=== PATIENT | female | born 1940 | race Caucasian/White ===

== ENCOUNTER 2017-06-16 04:20 | Observation (INO) | payer MEDICARE, OTHER ==
[2017-06-16] MEDS ORDERED: Sodium Chloride 0.9% 5 ML Syringe FLUSH PRN ×2 (04:39→05:59)
[2017-06-16] MEDS ORDERED: Sodium Chloride 0.9% 1,000 ML IV ONE (04:39)
--- NOTE | 2017-06-16 04:44 | EDM.PDOC ---
Addendum entered and electronically signed by Boris Paz PA 06/16/17 06:04 : please use ER note for admission H and P Original Note: ED HPI GENERAL MEDICAL PROBLEM - General Chief Complaint: Neurological Problem Stated Complaint: weakness Time Seen by Provider: 06/16/17 04:35 Source of Information: Reports: Patient, EMS History Limitations: Reports: No Limitations - History of Present Illness INITIAL COMMENTS - FREE TEXT/NARRATIVE: 76 YO WF presents to ER by EMS after reporting lower extremity weakness and inability to stand on her own. Pt reports she was watch TV in bed and when she moved her legs to the side of the bed to get up she was unable to move her legs and lowered herself to the floor. Pt was unable to get up. Pt reports once EMS arrived her symptoms resolved. Pt states she feels fine now. Pt denied any slurred speech, facial droop, confusion, headace or upper extremity weakness or numbness. Pt states she remembers everything about the event. Pt denies any chest pain, shortness of breath, dizziness or diaphoresis. Pt reports she only takes medicine for high blood pressure but states shes had TIAs in the past. Pt states tonights event was different than previous TIAs. Onset: Sudden Duration: Hour(s): (1) Location: Reports: Lower Extremity, Left, Lower Extremity, Right Quality: Reports: Other (weakness) Improves with: Reports: None Worsens with: Reports: Movement Context: Reports: Activity Associated Symptoms: Reports: Weakness. Denies: Confusion, Chest Pain, Cough, cough w sputum, Diaphoresis, Fever/Chills, Headaches, Loss of Appetite, Nausea/ Vomiting, Seizure, Shortness of Breath, Syncope - Related Data Allergies Allergy/AdvReac Type Severity Reaction Status Date / Time Sulfa (Sulfonamide Allergy Hives Verified 06/16/17 05:17 Antibiotics) Home Meds: Home Meds Escitalopram [Lexapro] 10 mg PO DAILY 06/16/17 [History] Levothyroxine Sodium [Synthroid] 25 mcg PO ACBREAKFAST 06/16/17 [History] Nebivolol [Bystolic] 10 mg PO BEDTIME 06/16/17 [History] ED ROS GENERAL - Review of Systems Review Of Systems: See Below Constitutional: Reports: No Symptoms HEENT: Reports: No Symptoms Respiratory: Reports: No Symptoms Cardiovascular: Reports: No Symptoms Endocrine: Reports: No Symptoms GI/Abdominal: Reports: No Symptoms : Reports: No Symptoms Musculoskeletal: Reports: No Symptoms Skin: Reports: No Symptoms Neurological: Reports: No Symptoms Psychiatric: Reports: No Symptoms Hematologic/Lymphatic: Reports: No Symptoms Immunologic: Reports: No Symptoms ED EXAM, NEURO - Physical Exam Exam: See Below Exam Limited By: No Limitations General Appearance: Alert, WD/WN, No Apparent Distress Eye Exam: Bilateral Eye: EOMI, PERRL Throat/Mouth: Normal Inspection, Normal Lips, Normal Teeth, Normal Gums, Normal Oropharynx, Normal Voice, No Airway Compromise Head Exam: Atraumatic, Normocephalic Neck: Normal Inspection, Supple, Non-Tender, Full Range of Motion Respiratory/Chest: No Respiratory Distress, Lungs Clear, Normal Breath Sounds, No Accessory Muscle Use, Chest Non-Tender Cardiovascular: Normal Peripheral Pulses, Regular Rate, Rhythm, No Edema, No Gallop, No JVD, No Murmur, No Rub GI/Abdominal: Normal Bowel Sounds, Soft, Non-Tender, No Organomegaly, No Distention, No Abnormal Bruit, No Mass Neurological: Alert, Normal Mood/Affect, Normal Dorsiflexion, CN II-XII Intact, Normal Plantar Flexion, Normal Gait, Normal Reflexes, No Motor/Sensory Deficits , Oriented x 3 Back Exam: Normal Inspection, Full Range of Motion, NT Extremities: Normal Inspection, Normal Range of Motion, Non-Tender, No Pedal Edema, Normal Capillary Refill Psychiatric: Normal Affect, Normal Mood Skin Exam: Warm, Dry, Intact, Normal Color, No Rash EKG INTERPRETATION EKG Date: 06/16/17 Time: 04:43 Rhythm: NSR Rate (Beats/Min): 70 [place]: Normal P-Wave: Present QRS: Normal ST-T: Normal QT: Normal Comparison: NA - No Prior EKG Course - Orders/Labs/Meds Orders: Active Orders 24 hr Category Date Time Status EKG Documentation Completion [RC] ASDIRECTED Care 06/16/17 04:40 Active Peripheral IV Care [RC] . DIRECTED Care 06/16/17 04:40 Active Chest 1V Frontal [CR] Stat Exams 06/16/17 04:39 Taken Head wo Cont [CT] Stat Exams 06/16/17 04:39 Taken Sodium Chloride 0.9% [Syrex Flush] Med 06/16/17 04:39 Active 5 ml FLUSH Q8HR PRN Peripheral IV Insertion Adult [OM.PC] Routine Oth 06/16/17 04:39 Ordered EKG 12 Lead [EK] Routine Ther 06/16/17 04:39 Ordered Medication Orders Sodium Chloride (Syrex Flush) 5 ml FLUSH Q8HR PRN PRN Reason: Keep Vein Open Labs: Laboratory Tests 06/16/17 06/16/17 06/16/17 Range/Units 04:50 04:50 04:50 WBC 4.9 L (5.0-10.0) 10^3/uL RBC 3.70 L (3.80-5.50) 10^6/uL Hgb 12.2 (12.0-16.0) g/dL Hct 35.9 L (37.0-47.0) % MCV 97.1 H (82.0-92.0) fL MCH 33.1 H (27.0-31.0) pg MCHC 34.0 (32.0-36.0) g/dL RDW 14.5 (11.5-14.5) % Plt Count 264 (150-300) 10^3/uL MPV 7.4 (7.4-10.4) fL Neut % (Auto) 51.8 (50.0-70.0) % Lymph % (Auto) 33.3 (20.0-40.0) % [place] % (Auto) 9.4 H (2.0-8.0) % Eos % (Auto) 5.2 H (1.0-3.0) % Baso % (Auto) 0.3 (0.0-1.0) % Neut # (Auto) 2.5 (2.5-7.0) 10^3/uL Lymph # (Auto) 1.6 (1.0-4.0) 10^3/uL [place] # (Auto) 0.5 (0.1-0.8) 10^3/uL Eos # (Auto) 0.3 (0.1-0.3) 10^3/uL Baso # (Auto) 0.0 (0.0-0.1) 10^3/uL PT 9.6 (8.9-11.4) SEC INR 0.9 (0.9-1.1) APTT 21.5 (20.8-31.2) SEC Sodium 135 L (136-145) mmol/L Potassium 4.3 (3.3-5.3) mmol/L Chloride 99 (98-115) mmol/L Carbon Dioxide 24.4 (21.0-32.0) mmol/L BUN 9 (6-25) mg/dL Creatinine 0.76 (0.51-1.17) mg/dL Est Cr Clr Drug Dosing 56.67 mL/min Estimated GFR (MDRD) > 60 mL/min Glucose 93 (70-110) mg/dL Calcium 8.5 L (8.7-10.3) mg/dL Creatine Kinase 98 (26-276) U/L CK-MB (CK-2) 1.30 (0.00-4.30) ng/mL Troponin I 0.08 H* (0.00-0.070) ng/mL Ethyl Alcohol 268 H* (None detected) mg/dL Meds: Medications Generic Name Dose Route Start Last Admin Trade Name Freq PRN Reason Stop Dose Admin Sodium Chloride 5 ml 06/16/17 04:39 Syrex Flush FLUSH Q8HR PRN Keep Vein Open Discontinued Medications Generic Name Dose Route Start Last Admin Trade Name Freq PRN Reason Stop Dose Admin Sodium Chloride 1,000 mls @ 999 mls/hr 06/16/17 04:39 06/16/17 05:24 Normal Saline IV 06/16/17 05:39 999 mls/hr .BOLUS ONE Administration - Radiology Interpretation Free Text/Narrative:: CXR- NAD CT Head- NAD Departure - Departure Time of Disposition: 05:57 Disposition: Refer to Observation Condition: Fair Clinical Impression: Elevated troponin I level Alcohol intoxication Qualifiers: Complication of substance-induced condition: uncomplicated Qualified Code(s): F10.920 - Alcohol use, unspecified with intoxication, uncomplicated Syncope Qualifiers: Encounter type: initial encounter - Discharge Information Forms: ED Department Discharge - My Orders Last 24 Hours: My Active Orders 06/16/17 04:39 Chest 1V Frontal [CR] Stat Head wo Cont [CT] Stat Sodium Chloride 0.9% [Syrex Flush] 5 ml FLUSH Q8HR PRN Peripheral IV Insertion Adult [OM.PC] Routine EKG 12 Lead [EK] Routine 06/16/17 04:40 EKG Documentation Completion [RC] ASDIRECTED Peripheral IV Care [RC] . DIRECTED - Assessment/Plan Last 24 Hours: My Active Orders 06/16/17 04:39 Chest 1V Frontal [CR] Stat Head wo Cont [CT] Stat Sodium Chloride 0.9% [Syrex Flush] 5 ml FLUSH Q8HR PRN Peripheral IV Insertion Adult [OM.PC] Routine EKG 12 Lead [EK] Routine 06/16/17 04:40 EKG Documentation Completion [RC] ASDIRECTED Peripheral IV Care [RC] . DIRECTED Assessment:: 1. lower extremity weakness- resolved 2. elevated trop I 3. alcohol intoxication 4. possible syncope Plan: 1. admit for observation- Heydi Valero 2. trop I Q6 x 3 3. supportive care 4. nitro/ASA
[2017-06-16 05:45] LABS: CHLORIDE,CL 99 mmol/L (98-115); SODIUM,NA 135 mmol/L (136-145)
[2017-06-16] MEDS ORDERED: Aspirin 81 MG Tab.Chew PO ONE (06:02)
[2017-06-16] MEDS ORDERED: Nitroglycerin 2% Oint 1 GM UD Packet TOP PRN (06:02)
[2017-06-16] MEDS: Sodium Chloride 0.9% 1,000 ML IV SCH ×2 (07:39→15:22)
[2017-06-16] MEDS ORDERED: ALPRAZolam 0.25 MG Tab PO ONE ×2 (12:16→21:59)
[2017-06-17] MEDS: Sodium Chloride 0.9% 1,000 ML IV SCH (00:30)
[2017-06-17 06:55] VITALS: BP 122/71
[2017-06-17 08:21] LABS: CHLORIDE,CL 106 mmol/L (98-115); SODIUM,NA 138 mmol/L (136-145)
[2017-06-17] MEDS ORDERED: Nitroglycerin 0.4 MG Tab.SL SL PRN (08:28)
[2017-06-17] MEDS ORDERED: Atropine 0.1 MG/ML 10 ML Syringe IVPUSH PRN (08:28)
[2017-06-17] MEDS ORDERED: EPINEPHrine 1:10,000 1 MG/10 ML Syringe IVPUSH PRN (08:28)
[2017-06-17] MEDS ORDERED: Lidocaine 2% 100 MG/5 ML Syringe IVPUSH PRN (08:28)
--- NOTE | 2017-06-17 08:56 | PCM.DCSUM1 ---
Discharge Summary - Hospital Course Free Text/Narrative:: Sharon is seen today on observation rounds. She will be discharged to home, her stay was from 06/16/14 - 06/17/14 due to near syncopal event with LE weakness , which is resolved, and acute EtOH intoxication. She states that she had been drinking wine and went to get out of bed and felt like she was about to pass out and her legs were wobbly. She called 911 and came by ambulance. This was a new sensation for her. EKG was WNL, troponin was elevated at 0.08 (0.07 ULN) . She had serial trops which were then 0.07, followed by 0.09, then 0.07 and this AM was 0.07. She has never had chest pain with this or SOB. Her weakness in the LE's has resolved. She was found to have a BELEN of 268. She states she had drank a whole bottle of wine. She was "having a pity libertarian" for herself. Her around a year ago this time and she was feeling sad and anxious. She does see Cristal Jimenez PA-C, who has her on xanax, which she has been on for a long time, as well as some Lexapro but she admits to not taking the Lexapro. She does states that the xanax helps. She has seen a counselor, Lily Andres, from [facility], in the past and wants to get back in touch with her. She admits to drinking daily but does not feel she has a problem with EtOH. She feels ready to go home today. - Discharge Data Discharge Date: 06/17/17 Discharge Disposition: Home, Self-Care 01 Condition: Good - Discharge Diagnosis/Problem(s) (1) Depression with anxiety SNOMED Code(s): 106163899 ICD Code: F41.8 - OTHER SPECIFIED ANXIETY DISORDERS Status: Acute Current Visit: Yes (2) Alcohol intoxication SNOMED Code(s): 82342436 Status: Acute Current Visit: Yes (3) Elevated troponin I level SNOMED Code(s): 188812969 Status: Acute Current Visit: Yes (4) Syncope SNOMED Code(s): 529044140 Status: Acute Current Visit: Yes - Patient Summary/Data Recommended Follow-up Testing/Procedures: Cardiolite stress test as an outpatient. Follow-up with counselor. Follow-up with PCP in 1 week. - Patient Instructions Diet: Regular Diet as Tolerated Activity: Rest and Relax Today Other/Special Instructions: Limit alcohol intake. Alcohol is a mood depressant and can worsen depression and counteract the effects of the antidepressant you are on. - Discharge Plan Home Medications: Home Meds Olmesartan Medoxomil [Benicar] 20 mg PO BID 10/17/14 [History] Calcium Citrate/Vitamin D3 [Citracal + D Maximum Caplet] 400 mg PO BID 06/23/15 [History] Cholecalciferol (Vitamin D3) [Vitamin D3] 2,000 intnl unit PO DAILY 06/23/15 [ History] Melatonin/Pyridoxine HCl (B6) [Melatonin 3 mg Tablet] 6 mg PO BEDTIME 07/17/15 [ History] Vitamin B Complex 1 each PO DAILY 07/17/15 [History] Escitalopram [Lexapro] 10 mg PO DAILY 06/16/17 [History] Levothyroxine Sodium [Synthroid] 25 mcg PO ACBREAKFAST 06/16/17 [History] Nebivolol [Bystolic] 10 mg PO BEDTIME 06/16/17 [History] Forms: ED Department Discharge - General Info Date of Service: 06/17/17 Admission Dx/Problem (Free Text: Elevated troponin, near syncope, EtOH intoxication. - Patient Data Vitals - Most Recent: Last Vital Signs Temp 97.7 F 06/17/17 06:54 Pulse 81 06/17/17 06:54 Resp 20 06/17/17 06:54 BP 122/71 06/17/17 06:54 Pulse Ox 97 06/17/17 07:40 Weight - Most Recent: 160 lb I&O - Last 24 hours: Intake & Output 06/16/17 06/17/17 06/17/17 22:59 06:59 14:59 Intake Total 1326 1150 Balance 1326 1150 Lab Results - Last 24 hrs: Laboratory Results - last 24 hr 06/16/17 06/16/17 06/16/17 Range/Units 10:53 16:58 23:01 WBC (5.0-10.0) 10^3/uL RBC (3.80-5.50) 10^6/uL Hgb (12.0-16.0) g/dL Hct (37.0-47.0) % MCV (82.0-92.0) fL MCH (27.0-31.0) pg MCHC (32.0-36.0) g/dL RDW (11.5-14.5) % Plt Count (150-300) 10^3/uL MPV (7.4-10.4) fL Neut % (Auto) (50.0-70.0) % Lymph % (Auto) (20.0-40.0) % [place] % (Auto) (2.0-8.0) % Eos % (Auto) (1.0-3.0) % Baso % (Auto) (0.0-1.0) % Neut # (Auto) (2.5-7.0) 10^3/uL Lymph # (Auto) (1.0-4.0) 10^3/uL [place] # (Auto) (0.1-0.8) 10^3/uL Eos # (Auto) (0.1-0.3) 10^3/uL Baso # (Auto) (0.0-0.1) 10^3/uL Sodium (136-145) mmol/L Potassium (3.3-5.3) mmol/L Chloride (98-115) mmol/L Carbon Dioxide (21.0-32.0) mmol/L BUN (6-25) mg/dL Creatinine (0.51-1.17) mg/dL Est Cr Clr Drug Dosing mL/min Estimated GFR (MDRD) mL/min Glucose (70-110) mg/dL Calcium (8.7-10.3) mg/dL Troponin I 0.07 0.09 H* 0.07 (0.00-0.070) ng/mL 06/17/17 06/17/17 Range/Units 07:20 07:20 WBC 5.8 (5.0-10.0) 10^3/uL RBC 3.22 L (3.80-5.50) 10^6/uL Hgb 10.2 L (12.0-16.0) g/dL Hct 31.2 L (37.0-47.0) % MCV 96.9 H (82.0-92.0) fL MCH 31.8 H (27.0-31.0) pg MCHC 32.9 (32.0-36.0) g/dL RDW 14.4 (11.5-14.5) % Plt Count 243 (150-300) 10^3/uL MPV 7.3 L (7.4-10.4) fL Neut % (Auto) 54.3 (50.0-70.0) % Lymph % (Auto) 24.7 (20.0-40.0) % [place] % (Auto) 16.4 H (2.0-8.0) % Eos % (Auto) 3.3 H (1.0-3.0) % Baso % (Auto) 1.3 H (0.0-1.0) % Neut # (Auto) 3.1 (2.5-7.0) 10^3/uL Lymph # (Auto) 1.4 (1.0-4.0) 10^3/uL [place] # (Auto) 1.0 H (0.1-0.8) 10^3/uL Eos # (Auto) 0.2 (0.1-0.3) 10^3/uL Baso # (Auto) 0.1 (0.0-0.1) 10^3/uL Sodium 138 (136-145) mmol/L Potassium 4.4 (3.3-5.3) mmol/L Chloride 106 (98-115) mmol/L Carbon Dioxide 26.7 (21.0-32.0) mmol/L BUN 6 (6-25) mg/dL Creatinine 0.72 (0.51-1.17) mg/dL Est Cr Clr Drug Dosing 59.81 mL/min Estimated GFR (MDRD) > 60 mL/min Glucose 97 (70-110) mg/dL Calcium 7.6 L (8.7-10.3) mg/dL Troponin I 0.07 (0.00-0.070) ng/mL Med Orders - Current: Current Medications Aspirin (Ecotrin) 325 mg PO DAILY ALYX Last Admin: 06/17/17 08:10 Dose: 325 mg Atropine Sulfate (Atropine 0.1 Mg/Ml) 0 mg IVPUSH ASDIRECTED PRN PRN Reason: Heart Epinephrine HCl (Epinephrine 1:10,000) 1 mg IVPUSH ASDIRECTED PRN PRN Reason: Heart Sodium Chloride (Normal Saline) 1,000 mls @ 125 mls/hr IV ASDIRECTED ALYX Last Admin: 06/17/17 00:30 Dose: 125 mls/hr Lidocaine HCl (Xylocaine 2%) 0 mg IVPUSH ASDIRECTED PRN PRN Reason: Heart Nitroglycerin (Nitro-Bid 2%) 1 gm TOP Q6H PRN PRN Reason: Chest Pain Nitroglycerin (Nitrostat) 0.4 mg SL ASDIRECTED PRN PRN Reason: Heart Discontinued Medications Alprazolam (Xanax) 0.5 mg PO ONETIME ONE Stop: 06/16/17 12:17 Last Admin: 06/16/17 12:36 Dose: 0.5 mg Alprazolam (Xanax) 0.5 mg PO ONETIME ONE Stop: 06/16/17 22:00 Last Admin: 06/16/17 22:11 Dose: 0.5 mg Aspirin (Aspirin) 324 mg PO ONETIME ONE Stop: 06/16/17 06:03 Last Admin: 06/16/17 07:40 Dose: 324 mg Sodium Chloride (Normal Saline) 1,000 mls @ 999 mls/hr IV .BOLUS ONE Stop: 06/16/17 05:39 Last Admin: 06/16/17 05:24 Dose: 999 mls/hr Sodium Chloride (Syrex Flush) 5 ml FLUSH Q8HR PRN PRN Reason: Keep Vein Open Sodium Chloride (Syrex Flush) 5 ml FLUSH Q8HR PRN PRN Reason: Keep Vein Open - Exam General: Reports: Alert, Oriented, Cooperative, No Acute Distress Lungs: Reports: Clear to Auscultation, Normal Respiratory Effort Cardiovascular: Reports: Regular Rate, Regular Rhythm *Q Meaningful Use (DIS) - VTE *Q VTE Criteria *Q: - Stroke *Q Stroke Criteria *Q: - AMI *Q AMI Criteria *Q:
[2017-06-17] MEDS ORDERED: Aspirin 325 MG Tab.EC PO SCH (09:00)
== END 2017-06-17 10:35 | disposition home or self-care (01) ==
LOC: KA.ED 04:20 → MERGE 05:59 → KA.MS 05:59
PROVIDERS: ADMIT Physician Assistant Medical; ATTEND Internal Medicine
DX: F41.8 Other specified anxiety disorders (principal); F10.129 Alcohol abuse with intoxication, unspecified; R79.89 Other specified abnormal findings of blood chemistry; R55 Syncope and collapse; Z88.2 Allergy status to sulfonamides; Z79.899 Other long term (current) drug therapy; Z88.8 Allergy status to other drugs, medicaments and biological substances; J30.1 Allergic rhinitis due to pollen; Z91.09 Other allergy status, other than to drugs and biological substances
CPT/HCPCS: 36415; 70450; 71010; 80048; 82550; 82553; 84484; 85025; 85610; 85730; 93005; 96360; 96361; 99285; A9270; G0378; G0480; J7030; 99220

== ENCOUNTER 2017-11-10 10:56 | Emergency (ER) | payer MEDICARE, OTHER ==
[2017-11-10 11:23] VITALS: BP 123/70
[2017-11-10] MEDS ORDERED: Acetaminophen 325 MG Tab PO ONE (11:24)
[2017-11-10] MEDS ORDERED: Acetaminophen 325 MG Tab ONE (11:26)
[2017-11-10] MEDS ORDERED: Ciprofloxacin 500 MG Tab PO ONE (11:59)
--- NOTE | 2017-11-10 12:19 | EDM.PDOC ---
ED HPI GENERAL MEDICAL PROBLEM - General Chief Complaint: Genitourinary Problem Stated Complaint: UTI Time Seen by Provider: 11/10/17 11:25 Source of Information: Reports: Patient History Limitations: Reports: No Limitations - History of Present Illness INITIAL COMMENTS - FREE TEXT/NARRATIVE: Patient presents today with complaints of dysuria and hematuria over the last 24 hours. She has noticed some low-grade fever upon taking her temperature in the ER today. She denies any flank or back pain,she has no nausea or vomiting, no abdominal or pelvic pain. She denies a history of recurrent recurrent urinary tract infections. She states that she may have had a UTI many years ago. Onset: Sudden Onset Date: 11/09/17 Duration: Hour(s):, Constant Location: Reports: Pelvis Quality: Reports: Burning Severity: Moderate Improves with: Reports: None Worsens with: Reports: None Associated Symptoms: Denies: Fever/Chills, Nausea/Vomiting - Related Data Allergies Allergy/AdvReac Type Severity Reaction Status Date / Time feathers Allergy Other Verified 11/10/17 11:20 formaldehyde Allergy Other Verified 11/10/17 11:20 gluten Allergy Other Verified 11/10/17 11:20 lactose Allergy Diarrhea Verified 11/10/17 11:20 pollen extracts Allergy Other Verified 11/10/17 11:20 Sulfa (Sulfonamide Allergy Other Verified 11/10/17 11:20 Antibiotics) bleach Allergy Unknown Other Uncoded 06/17/17 10:08 green letuce Allergy Diarrhea Uncoded 11/10/17 11:20 Home Meds: Home Meds Olmesartan Medoxomil [Benicar] 20 mg PO BID 10/17/14 [History] Calcium Citrate/Vitamin D3 [Citracal + D Maximum Caplet] 400 mg PO BID 06/23/15 [History] Cholecalciferol (Vitamin D3) [Vitamin D3] 2,000 intnl unit PO DAILY 06/23/15 [ History] Melatonin/Pyridoxine HCl (B6) [Melatonin 3 mg Tablet] 6 mg PO BEDTIME 07/17/15 [ History] Vitamin B Complex 1 each PO DAILY 07/17/15 [History] Escitalopram [Lexapro] 10 mg PO DAILY 06/16/17 [History] Levothyroxine Sodium [Synthroid] 25 mcg PO ACBREAKFAST 06/16/17 [History] Nebivolol [Bystolic] 10 mg PO BEDTIME 06/16/17 [History] Past Medical History HEENT History: Reports: Impaired Vision Cardiovascular History: Reports: High Cholesterol, Hypertension Gastrointestinal History: Reports: Chronic Diarrhea, GERD Genitourinary History: Reports: Urinary Incontinence EMT I/99 History: Reports: Neurological History: Reports: TIA Other Neuro History: 2014 Psychiatric History: Reports: Anxiety, Depression, Panic Attack Endocrine/Metabolic History: Reports: Hyperthyroidism, Hypothyroidism, Other ( See Below) Other Endocrine/Metabolic History: Pt can not recall if she has hyper or hypo thyroidism; but she takes synthroid Hematologic History: Reports: Blood Transfusion(s) Oncologic (Cancer) History: Reports: Basal Cell Carcinoma Dermatologic History: Reports: Other (See Below) Other Dermatologic History: Basal cell CA - Infectious Disease History Infectious Disease History: Reports: Chicken Pox, Measles, Mumps - Past Surgical History Female Surgical History: Reports: D&C, Hysterectomy, Other (See Below) Other Female Surgeries/Procedures: Bladder surgery, sling. Musculoskeletal Surgical History: Reports: Shoulder Replacement Social & Family History - Tobacco Use Smoking Status *Q: Former Smoker Years of Tobacco use: 20 Packs/Tins Daily: 1 Used Tobacco, but Quit: Yes Month Tobacco Last Used: 1994 Second Hand Smoke Exposure: Yes - Alcohol Use Days Per Week of Alcohol Use: 7 Number of Drinks Per Day: 2 Total Drinks Per Week: 14 - Recreational Drug Use Recreational Drug Use: No - Living Situation & Occupation Living situation: Reports: ED ROS GENERAL - Review of Systems Review Of Systems: ROS reveals no pertinent complaints other than HPI. ED EXAM, RENAL/ - Physical Exam Exam: See Below Exam Limited By: No Limitations General Appearance: Alert, WD/WN, No Apparent Distress Throat/Mouth: Normal Voice, No Airway Compromise Head: Atraumatic Neck: Normal Inspection Respiratory/Chest: No Respiratory Distress GI/Abdominal: Soft Back Exam: Normal Inspection. No: CVA Tenderness (L), CVA Tenderness (R) Extremities: Normal Inspection Neurological: Alert, Oriented, Normal Cognition, Normal Gait Psychiatric: Normal Affect, Normal Mood Skin Exam: Warm, Dry, Intact, Normal Color Course - Vital Signs Last Recorded V/S: Last Vital Signs Temp 99.6 F 11/10/17 11:21 Pulse 91 11/10/17 11:21 Resp 18 11/10/17 11:21 BP 123/70 11/10/17 11:21 Pulse Ox 96 11/10/17 11:21 - Orders/Labs/Meds Orders: Active Orders 24 hr Category Date Time Status CULTURE URINE [RM] Stat Lab 11/10/17 11:00 Received Labs: Laboratory Tests 11/10/17 Range/Units 11:00 Specimen Type Urincc Urine Color Red H (YELLOW) Urine Appearance Turbid H (CLEAR) Urine pH 6.5 (5.0-9.0) Ur Specific [place] 1.020 (1.005-1.030) Urine Protein >=300 H (NEGATIVE) mg/dL Urine Glucose (UA) Negative (NEGATIVE) mg/dL Urine Ketones Trace H (NEGATIVE) mg/dL Urine Occult Blood Large H (NEGATIVE) Urine Nitrite Positive H (NEGATIVE) Urine Bilirubin Moderate H (NEGATIVE) Urine Urobilinogen 1.0 (0.2-1.0) E.U./dL Ur Leukocyte Esterase Large H (NEGATIVE) Urine RBC Packed /HPF Urine WBC 20-30 H /HPF Ur Epithelial Cells Rare /LPF Urine Bacteria Rare (NONE TO FEW) /HPF Meds: Medications Discontinued Medications Generic Name Dose Route Start Last Admin Trade Name Freq PRN Reason Stop Dose Admin Acetaminophen 650 mg 11/10/17 11:24 11/10/17 11:27 Tylenol PO 11/10/17 11:25 650 mg NOW ONE Administration Acetaminophen Confirm 11/10/17 11:26 11/10/17 11:31 Tylenol Administered 11/10/17 11:27 Not Given Dose 650 mg .ROUTE .STK-MED ONE Ciprofloxacin 500 mg 11/10/17 11:59 11/10/17 12:11 Ciprofloxacin Hcl PO 11/10/17 12:00 500 mg ONETIME ONE Administration Departure - Departure Time of Disposition: 12:18 Disposition: Home, Self-Care 01 Condition: Good Clinical Impression: UTI, Urinary tract infectious disease - Discharge Information Instructions: Urinary Tract Infection, Adult Referrals: Heydi Villalba MD [Primary Care Provider] - Forms: ED Department Discharge Additional Instructions: 1. Cipro 500 mg daily for 7 days. Patient was given 500 mg today in the ER and she will fill the prescription for the remaining seven-day course with her pharmacy. 2. Encourage you to drink plenty of water. 3. Urinary urinary analysis was sent for culture we should have the results within 48 hours. Please follow-up with your primary care for these results to make sure that the antibiotic I placed you on is sensitive to your urinary tract infection. 4. Tylenol 650 mg every 6 hours when necessary for pain discomfort or low-grade fevers 5. If symptoms persist recommend follow-up with your primary care next week. - My Orders Last 24 Hours: My Active Orders 11/10/17 11:00 CULTURE URINE [RM] Stat - Assessment/Plan Last 24 Hours: My Active Orders 11/10/17 11:00 CULTURE URINE [RM] Stat Assessment:: 1. Urinary tract infection Plan: 1. Cipro 500 mg daily for 7 days. Patient was given 500 mg today in the ER and she will fill the prescription for the remaining seven-day course with her pharmacy. 2. Encourage you to drink plenty of water. 3. Urinary urinary analysis was sent for culture we should have the results within 48 hours. Please follow-up with your primary care for these results to make sure that the antibiotic I placed you on is sensitive to your urinary tract infection. 4. Tylenol 650 mg every 6 hours when necessary for pain discomfort or low-grade fevers 5. If symptoms persist recommend follow-up with your primary care next week.
== END 2017-11-10 12:15 | disposition home or self-care (01) ==
LOC: KA.ED 10:56
DX: N39.0 Urinary tract infection, site not specified (principal); E78.00 Pure hypercholesterolemia, unspecified; I10 Essential (primary) hypertension; E03.9 Hypothyroidism, unspecified; Z87.891 Personal history of nicotine dependence; Z88.8 Allergy status to other drugs, medicaments and biological substances; Z88.2 Allergy status to sulfonamides; Z79.899 Other long term (current) drug therapy
CPT/HCPCS: 81001; 87086; 87088; 87186; 99283; A9270

== ENCOUNTER 2018-01-19 09:52 | Emergency (ER) | payer MEDICARE, OTHER ==
[2018-01-19 10:01] VITALS: BP 163/82
[2018-01-19] MEDS ORDERED: Sodium Chloride 0.9% 1,000 ML ONE (10:16)
[2018-01-19] MEDS ORDERED: Sodium Chloride 0.9% 1,000 ML IV ONE (10:29)
[2018-01-19] MEDS ORDERED: Ondansetron 4 MG/2 ML SDV ONE (10:32)
[2018-01-19] MEDS ORDERED: Ondansetron 4 MG/2 ML SDV IVPUSH ONE (10:32)
[2018-01-19 11:32] LABS: CHLORIDE,CL 102 mmol/L (98-115); SODIUM,NA 139 mmol/L (136-145)
--- NOTE | 2018-01-19 11:41 | EDM.PDOC ---
ED HPI GENERAL MEDICAL PROBLEM - General Chief Complaint: General Stated Complaint: DEHYDRATED?? Source of Information: Reports: Patient, Family (daughter) History Limitations: Reports: No Limitations - History of Present Illness INITIAL COMMENTS - FREE TEXT/NARRATIVE: 77-year-old female presents to the emergency room accompanied with her daughter this morning with complaints of not feeling well possibly dehydrated with some mild nausea. She was seen in the clinic's past Saturday and was given 2 L of IV fluids. She reports that she felt significantly better Saturday and Saturday. This morning she didn't feel well she denies vomiting or diarrhea. She denies shortness of breath, chest pain, abdominal pain, severe headache. This then brought my attention by her daughter and also the patient also agreed that she has been drinking too much. She drinks anywhere from 4 up to 8 glasses of wine nightly. She has been feeling depressed and anxious. She does take medications for this. She feels her drinking has regressed since the passing of her year and a half ago. She has been through detox and has been set up to go to [facility] in [facility] on 2 separate occasions each time declined to go. She states she feels a little shaky today and was drinking wine last night and had at least 4 glasses. Onset: Today Duration: Hour(s): Location: Reports: Generalized - Related Data Allergies Allergy/AdvReac Type Severity Reaction Status Date / Time feathers Allergy Other Verified 01/19/18 10:01 formaldehyde Allergy Other Verified 01/19/18 10:01 gluten Allergy Other Verified 01/19/18 10:01 lactose Allergy Diarrhea Verified 01/19/18 10:01 pollen extracts Allergy Other Verified 01/19/18 10:01 Sulfa (Sulfonamide Allergy Other Verified 01/19/18 10:01 Antibiotics) bleach Allergy Unknown Other Uncoded 01/19/18 10:01 green letuce Allergy Diarrhea Uncoded 01/19/18 10:01 Home Meds: Home Meds Calcium Citrate/Vitamin D3 [Citracal + D Maximum Caplet] 400 mg PO BID 06/23/15 [History] Cholecalciferol (Vitamin D3) [Vitamin D3] 2,000 intnl unit PO DAILY 06/23/15 [ History] Melatonin/Pyridoxine HCl (B6) [Melatonin 3 mg Tablet] 6 mg PO BEDTIME PRN [History] Vitamin B Complex 1 each PO DAILY 07/17/15 [History] Levothyroxine Sodium [Synthroid] 25 mcg PO ACBREAKFAST 06/16/17 [History] Nebivolol [Bystolic] 10 mg PO BEDTIME 06/16/17 [History] traZODone HCl [Trazodone HCl] 100 mg PO BEDTIME 11/10/17 [History] ALPRAZolam [Alprazolam] 0.25 mg PO TID PRN 01/19/18 [History] Escitalopram [Lexapro] 20 mg PO DAILY 01/19/18 [History] busPIRone [Buspar] 10 mg PO BID 01/19/18 [History] Past Medical History HEENT History: Reports: Impaired Vision Cardiovascular History: Reports: High Cholesterol, Hypertension Gastrointestinal History: Reports: Chronic Diarrhea, GERD Genitourinary History: Reports: Urinary Incontinence 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: Neurological History: Reports: TIA Other Neuro History: 2014 Psychiatric History: Reports: Anxiety, Depression, Panic Attack Endocrine/Metabolic History: Reports: Hyperthyroidism, Hypothyroidism, Other ( See Below) Other Endocrine/Metabolic History: Pt can not recall if she has hyper or hypo thyroidism; but she takes synthroid Hematologic History: Reports: Blood Transfusion(s) Oncologic (Cancer) History: Reports: Basal Cell Carcinoma Dermatologic History: Reports: Other (See Below) Other Dermatologic History: Basal cell CA - Infectious Disease History Infectious Disease History: Reports: Chicken Pox, Measles, Mumps - Past Surgical History Female Surgical History: Reports: D&C, Hysterectomy, Other (See Below) Other Female Surgeries/Procedures: Bladder surgery, sling. Musculoskeletal Surgical History: Reports: Shoulder Replacement Social & Family History - Tobacco Use Smoking Status *Q: Former Smoker Years of Tobacco use: 20 Packs/Tins Daily: 1 Used Tobacco, but Quit: Yes Month/Year Tobacco Last Used: 1994 Second Hand Smoke Exposure: Yes - Caffeine Use Caffeine Use: Reports: Coffee - Alcohol Use Days Per Week of Alcohol Use: 7 Number of Drinks Per Day: 2 Total Drinks Per Week: 14 - Recreational Drug Use Recreational Drug Use: No - Living Situation & Occupation Living situation: Reports: Course - Vital Signs Last Recorded V/S: Last Vital Signs Temp 97.3 F 01/19/18 09:58 Pulse 88 03/18/18 09:58 Resp 16 01/19/18 09:58 BP 163/82 H 01/19/18 09:58 Pulse Ox 96 01/19/18 09:58 - Orders/Labs/Meds Labs: Laboratory Tests 01/19/18 01/19/18 Range/Units 11:00 11:00 WBC 5.1 (5.0-10.0) 10^3/uL RBC 3.62 L (3.80-5.50) 10^6/uL Hgb 12.2 (12.0-16.0) g/dL Hct 36.2 L (37.0-47.0) % MCV 99.8 H (82.0-92.0) fL MCH 33.6 H (27.0-31.0) pg MCHC 33.7 (32.0-36.0) g/dL RDW 14.5 (11.5-14.5) % Plt Count 252 (150-300) 10^3/uL MPV 7.2 L (7.4-10.4) fL Neut % (Auto) 59.5 (50.0-70.0) % Lymph % (Auto) 22.7 (20.0-40.0) % [place] % (Auto) 9.3 H (2.0-8.0) % Eos % (Auto) 5.6 H (1.0-3.0) % Baso % (Auto) 2.9 H (0.0-1.0) % Neut # (Auto) 3.0 (2.5-7.0) 10^3/uL Lymph # (Auto) 1.2 (1.0-4.0) 10^3/uL [place] # (Auto) 0.5 (0.1-0.8) 10^3/uL Eos # (Auto) 0.3 (0.1-0.3) 10^3/uL Baso # (Auto) 0.1 (0.0-0.1) 10^3/uL Sodium 139 (136-145) mmol/L Potassium 4.2 (3.3-5.3) mmol/L Chloride 102 (98-115) mmol/L Carbon Dioxide 28.4 (21.0-32.0) mmol/L BUN 5 L (6-25) mg/dL Creatinine 0.92 (0.51-1.17) mg/dL Est Cr Clr Drug Dosing 46.08 mL/min Estimated GFR (MDRD) 59 mL/min Glucose 95 (70-110) mg/dL Calcium 8.9 (8.7-10.3) mg/dL Ethyl Alcohol < 3 (0-3) mg/dL Meds: Medications Discontinued Medications Generic Name Dose Route Start Last Admin Trade Name Tana PRN Reason Stop Dose Admin Sodium Chloride Confirm 01/19/18 10:16 01/19/18 10:49 Normal Saline Administered 01/19/18 10:17 Not Given Dose 1,000 mls @ as directed .ROUTE .STK-MED ONE Sodium Chloride 1,000 mls @ 999 mls/hr 01/19/18 10:29 01/19/18 10:29 Normal Saline IV 01/19/18 11:29 999 mls/hr .BOLUS ONE Administration Ondansetron HCl Confirm 01/19/18 10:32 01/19/18 10:49 Zofran Administered 01/19/18 10:33 Not Given Dose 4 mg .ROUTE .STK-MED ONE Ondansetron HCl 4 mg 01/19/18 10:32 01/19/18 10:32 Zofran IVPUSH 01/19/18 10:33 4 mg ONETIME ONE Administration Departure - Departure Disposition: Home, Self-Care 01 Clinical Impression: Depression with anxiety, Alcohol abuse counseling and surveillance - Discharge Information Instructions: Alcohol Use Disorder Referrals: Heydi Villalba MD [Primary Care Provider] - Forms: ED Department Discharge Additional Instructions: 1. Long discussion with patient regarding alcohol use. Discussed the with the patient and her daughter regarding further [facility] in [place]. 2. Also discussed great concern her drinking and also taking sleeping pills, benzodiazepines. 3. She will follow-up with her primary care next week 4. Family intervention is planned this next week and and deciding further treatment and care for her alcohol use.
--- NOTE | 2018-01-19 12:16 | EDM.PDOCBH ---
ED HPI GENERAL MEDICAL PROBLEM - General Chief Complaint: General Stated Complaint: DEHYDRATED?? Time Seen by Provider: 01/19/18 10:00 Source of Information: Reports: Patient, Family (daughter) History Limitations: Reports: No Limitations - History of Present Illness Onset: Today, Gradual Duration: Hour(s): Location: Reports: Generalized Associated Symptoms: Reports: Nausea/Vomiting. Denies: Confusion, Chest Pain, Diaphoresis, Fever/Chills, Headaches, Shortness of Breath, Weakness - Related Data Allergies Allergy/AdvReac Type Severity Reaction Status Date / Time feathers Allergy Other Verified 01/19/18 10:01 formaldehyde Allergy Other Verified 01/19/18 10:01 gluten Allergy Other Verified 01/19/18 10:01 lactose Allergy Diarrhea Verified 01/19/18 10:01 pollen extracts Allergy Other Verified 01/19/18 10:01 Sulfa (Sulfonamide Allergy Other Verified 01/19/18 10:01 Antibiotics) bleach Allergy Unknown Other Uncoded 01/19/18 10:01 green letuce Allergy Diarrhea Uncoded 01/19/18 10:01 Home Meds: Home Meds Calcium Citrate/Vitamin D3 [Citracal + D Maximum Caplet] 400 mg PO BID 06/23/15 [History] Cholecalciferol (Vitamin D3) [Vitamin D3] 2,000 intnl unit PO DAILY 06/23/15 [ History] Melatonin/Pyridoxine HCl (B6) [Melatonin 3 mg Tablet] 6 mg PO BEDTIME PRN [History] Vitamin B Complex 1 each PO DAILY 07/17/15 [History] Levothyroxine Sodium [Synthroid] 25 mcg PO ACBREAKFAST 06/16/17 [History] Nebivolol [Bystolic] 10 mg PO BEDTIME 06/16/17 [History] traZODone HCl [Trazodone HCl] 100 mg PO BEDTIME 11/10/17 [History] ALPRAZolam [Alprazolam] 0.25 mg PO TID PRN 01/19/18 [History] Escitalopram [Lexapro] 20 mg PO DAILY 01/19/18 [History] busPIRone [Buspar] 10 mg PO BID 01/19/18 [History] Past Medical History HEENT History: Reports: Impaired Vision Cardiovascular History: Reports: High Cholesterol, Hypertension Gastrointestinal History: Reports: Chronic Diarrhea, GERD Genitourinary History: Reports: Urinary Incontinence [employer]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: Neurological History: Reports: TIA Other Neuro History: 2014 Psychiatric History: Reports: Anxiety, Depression, Panic Attack Endocrine/Metabolic History: Reports: Hyperthyroidism, Hypothyroidism, Other ( See Below) Other Endocrine/Metabolic History: Pt can not recall if she has hyper or hypo thyroidism; but she takes synthroid Hematologic History: Reports: Blood Transfusion(s) Oncologic (Cancer) History: Reports: Basal Cell Carcinoma Dermatologic History: Reports: Other (See Below) Other Dermatologic History: Basal cell CA - Infectious Disease History Infectious Disease History: Reports: Chicken Pox, Measles, Mumps - Past Surgical History Female Surgical History: Reports: D&C, Hysterectomy, Other (See Below) Other Female Surgeries/Procedures: Bladder surgery, sling. Musculoskeletal Surgical History: Reports: Shoulder Replacement Social & Family History - Tobacco Use Smoking Status *Q: Former Smoker Years of Tobacco use: 20 Packs/Tins Daily: 1 Used Tobacco, but Quit: Yes Month/Year Tobacco Last Used: 1994 Second Hand Smoke Exposure: Yes - Caffeine Use Caffeine Use: Reports: Coffee - Alcohol Use Days Per Week of Alcohol Use: 7 Number of Drinks Per Day: 2 Total Drinks Per Week: 14 - Recreational Drug Use Recreational Drug Use: No - Living Situation & Occupation Living situation: Reports: ED ROS GENERAL - Review of Systems Review Of Systems: See Below Constitutional: Denies: Fever, Diaphoresis HEENT: Reports: No Symptoms Respiratory: Reports: No Symptoms Cardiovascular: Denies: Chest Pain Endocrine: Reports: No Symptoms GI/Abdominal: Denies: Abdominal Pain : Reports: No Symptoms Musculoskeletal: Reports: No Symptoms Skin: Reports: No Symptoms Neurological: Denies: Confusion, Headache, Syncope, Trouble Speaking, Difficulty Walking, Weakness, Change in Speech Psychiatric: Reports: Anxiety, Depression, Other (alcohol abuse) Hematologic/Lymphatic: Reports: No Symptoms Immunologic: Reports: No Symptoms ED EXAM, BEHAVIORAL HEALTH - Physical Exam Exam: See Below Exam Limited By: No Limitations General Appearance: Alert, No Apparent Distress Ears: Hearing Grossly Normal Nose: Normal Inspection Throat/Mouth: Normal Inspection, Normal Voice, No Airway Compromise Head: Atraumatic, Normocephalic Respiratory/Chest: No Respiratory Distress, Lungs Clear Cardiovascular: Regular Rate, Rhythm, No Murmur GI/Abdominal: Soft Extremities: Normal Inspection, No Pedal Edema Neurological: Alert, Oriented x 3 Psychiatric: Alert, Normal Affect, Oriented, Depressed Mood. No: Suicidal Thoughts, Paranoid Thoughts, Threatening Behavior Skin Exam: Warm, Dry, Intact, Normal color, No rash. No: Diaphoretic COURSE, BEHAVIORAL HEALTH COMP - Course Vital Signs: Last Vital Signs Temp 97.3 F 01/19/18 09:58 Pulse 88 01/19/18 09:58 Resp 16 01/19/18 09:58 BP 163/82 H 01/19/18 09:58 Pulse Ox 96 01/19/18 09:58 Orders, Labs, Meds: Laboratory Tests 01/19/18 01/19/18 Range/Units 11:00 11:00 WBC 5.1 (5.0-10.0) 10^3/uL RBC 3.62 L (3.80-5.50) 10^6/uL Hgb 12.2 (12.0-16.0) g/dL Hct 36.2 L (37.0-47.0) % MCV 99.8 H (82.0-92.0) fL MCH 33.6 H (27.0-31.0) pg MCHC 33.7 (32.0-36.0) g/dL RDW 14.5 (11.5-14.5) % Plt Count 252 (150-300) 10^3/uL MPV 7.2 L (7.4-10.4) fL Neut % (Auto) 59.5 (50.0-70.0) % Lymph % (Auto) 22.7 (20.0-40.0) % [place] % (Auto) 9.3 H (2.0-8.0) % Eos % (Auto) 5.6 H (1.0-3.0) % Baso % (Auto) 2.9 H (0.0-1.0) % Neut # (Auto) 3.0 (2.5-7.0) 10^3/uL Lymph # (Auto) 1.2 (1.0-4.0) 10^3/uL [place] # (Auto) 0.5 (0.1-0.8) 10^3/uL Eos # (Auto) 0.3 (0.1-0.3) 10^3/uL Baso # (Auto) 0.1 (0.0-0.1) 10^3/uL Sodium 139 (136-145) mmol/L Potassium 4.2 (3.3-5.3) mmol/L Chloride 102 (98-115) mmol/L Carbon Dioxide 28.4 (21.0-32.0) mmol/L BUN 5 L (6-25) mg/dL Creatinine 0.92 (0.51-1.17) mg/dL Est Cr Clr Drug Dosing 46.08 mL/min Estimated GFR (MDRD) 59 mL/min Glucose 95 (70-110) mg/dL Calcium 8.9 (8.7-10.3) mg/dL Ethyl Alcohol < 3 (0-3) mg/dL Medications Discontinued Medications Generic Name Dose Route Start Last Admin Trade Name Tana PRN Reason Stop Dose Admin Sodium Chloride Confirm 01/19/18 10:16 01/19/18 10:49 Normal Saline Administered 01/19/18 10:17 Not Given Dose 1,000 mls @ as directed .ROUTE .STK-MED ONE Sodium Chloride 1,000 mls @ 999 mls/hr 01/19/18 10:29 01/19/18 10:29 Normal Saline IV 01/19/18 11:29 999 mls/hr .BOLUS ONE Administration Ondansetron HCl Confirm 01/19/18 10:32 01/19/18 10:49 Zofran Administered 01/19/18 10:33 Not Given Dose 4 mg .ROUTE .STK-MED ONE Ondansetron HCl 4 mg 01/19/18 10:32 01/19/18 10:32 Zofran IVPUSH 01/19/18 10:33 4 mg ONETIME ONE Administration Re-Assessment/Re-Exam: She was given 1 L normal saline and Zofran. She feels much better. We've had a discussion regarding patient's alcohol use. She admits that she does drink every night as anywhere from 4 up to 8 glasses of wine through out the evening. She does admit that she feels that her drinking is a problem. She has been through detox program and has set up for continuation through [facility] on 2 occasions each time she has been reluctant and decided not to go. She feels she's been more depressed and anxious surpassing her about a year and a half ago. Discharge vs Psych Eval/Treatment:: 01/19/18 12:22 Patient will be discharged home with her daughter. Family intervention planned this week discussion of treatment for her alcoholism. Departure - Departure Time of Disposition: 12:25 Disposition: Home, Self-Care 01 Condition: Fair Clinical Impression: Depression with anxiety, Alcohol abuse counseling and surveillance - Discharge Information Instructions: Alcohol Use Disorder Referrals: Heydi Villalba MD [Primary Care Provider] - Forms: ED Department Discharge Additional Instructions: 1. Long discussion with patient regarding alcohol use. Discussed the with the patient and her daughter regarding further [facility] in [place]. 2. Also discussed great concern her drinking and also taking sleeping pills, benzodiazepines. 3. She will follow-up with her primary care next week 4. Family intervention is planned this next week and and deciding further treatment and care for her alcohol use. - Assessment/Plan Assessment:: Alcohol abuse Depression anxiety Mild dehydration Plan: 1. Long discussion with patient regarding alcohol use. Discussed the with the patient and her daughter regarding further [facility] in [place]. 2. Also discussed great concern her drinking and also taking sleeping pills, benzodiazepines. 3. She will follow-up with her primary care next week 4. Family intervention is planned this next week and and deciding further treatment and care for her alcohol use.
== END 2018-01-19 12:15 | disposition home or self-care (01) ==
LOC: KA.ED 09:52
DX: F41.8 Other specified anxiety disorders (principal); Z71.41 Alcohol abuse counseling and surveillance of alcoholic; Z87.891 Personal history of nicotine dependence; I10 Essential (primary) hypertension; K21.9 Gastro-esophageal reflux disease without esophagitis; E78.00 Pure hypercholesterolemia, unspecified; Z79.899 Other long term (current) drug therapy; Z91.011 Allergy to milk products; Z91.09 Other allergy status, other than to drugs and biological substances; Z88.2 Allergy status to sulfonamides
CPT/HCPCS: 36415; 80048; 85025; 96361; 96374; 99284; G0480; J2405; J7030

== ENCOUNTER 2018-05-11 15:20 | Observation (INO) | payer MEDICARE, OTHER ==
[2018-05-11] MEDS ORDERED: Sodium Chloride 0.9% 5 ML Syringe FLUSH PRN ×2 (15:34→18:14)
[2018-05-11] MEDS ORDERED: Sodium Chloride 0.9% 1,000 ML IV ONE (15:45)
--- NOTE | 2018-05-11 15:52 | EDM.PDOC ---
ED HPI GENERAL MEDICAL PROBLEM - General Chief Complaint: General Stated Complaint: DIZZINESS Time Seen by Provider: 05/11/18 15:30 Source of Information: Reports: Patient History Limitations: Reports: No Limitations - History of Present Illness INITIAL COMMENTS - FREE TEXT/NARRATIVE: 77 YO WF presents to ER complaining of sudden onset of dizziness with standing. Pt reports she sttod up approximately 1 hour ago to go to the restroom and became dizzy. Pt reports she was able to get to the bathroom without falling or passing out. Pt reports whilw sitting or lying down she is asymptomatic. Pt denies any associated headache, chest pain, shortness of breath, nausea/ vomiting or recent illness including diarrhea or dysuria. Pt denies any weakness or parathesias. Pt denies any fever/chills or neck pain. Pt states she has been eating and drinking well and hasn't been exerting herself and has been indoors most of the day. Pt denies any recent change to her medications. Onset: Today Onset Date: 05/11/18 Onset Time: 14:00 Duration: Hour(s): (1) Location: Reports: Generalized Severity: Mild Improves with: Reports: Other (sitting/lying down) Worsens with: Reports: Movement Context: Reports: Activity Associated Symptoms: Reports: No Other Symptoms. Denies: Confusion, Chest Pain , Diaphoresis, Fever/Chills, Headaches, Nausea/Vomiting, Shortness of Breath, Syncope, Weakness - Related Data Allergies Allergy/AdvReac Type Severity Reaction Status Date / Time feathers Allergy Other Verified 05/11/18 15:28 formaldehyde Allergy Other Verified 05/11/18 15:28 gluten Allergy Other Verified 05/11/18 15:28 lactose Allergy Diarrhea Verified 05/11/18 15:28 pollen extracts Allergy Other Verified 05/11/18 15:28 Sulfa (Sulfonamide Allergy Other Verified 05/11/18 15:28 Antibiotics) bleach Allergy Unknown Other Uncoded 01/19/18 10:01 green letuce Allergy Diarrhea Uncoded 01/19/18 10:01 Home Meds: Home Meds Melatonin/Pyridoxine HCl (B6) [Melatonin 3 mg Tablet] 6 mg PO BEDTIME PRN [History] Vitamin B Complex 1 each PO DAILY 07/17/15 [History] Levothyroxine Sodium [Synthroid] 25 mcg PO ACBREAKFAST 06/16/17 [History] Nebivolol [Bystolic] 10 mg PO BEDTIME 06/16/17 [History] traZODone HCl [Trazodone HCl] 100 mg PO BEDTIME 11/10/17 [History] ALPRAZolam [Alprazolam] 0.25 mg PO TID PRN 01/19/18 [History] Escitalopram [Lexapro] 20 mg PO DAILY 01/19/18 [History] busPIRone [Buspar] 10 mg PO BID 01/19/18 [History] Past Medical History HEENT History: Reports: Impaired Vision Cardiovascular History: Reports: High Cholesterol, Hypertension Gastrointestinal History: Reports: Chronic Diarrhea, GERD Genitourinary History: Reports: Urinary Incontinence [employer] History: Reports: Neurological History: Reports: TIA Other Neuro History: 2014 Psychiatric History: Reports: Anxiety, Depression, Panic Attack Endocrine/Metabolic History: Reports: Hyperthyroidism, Hypothyroidism, Other ( See Below) Other Endocrine/Metabolic History: Pt can not recall if she has hyper or hypo thyroidism; but she takes synthroid Hematologic History: Reports: Blood Transfusion(s) Oncologic (Cancer) History: Reports: Basal Cell Carcinoma Dermatologic History: Reports: Other (See Below) Other Dermatologic History: Basal cell CA - Infectious Disease History Infectious Disease History: Reports: Chicken Pox, Measles, Mumps - Past Surgical History Female Surgical History: Reports: D&C, Hysterectomy, Other (See Below) Other Female Surgeries/Procedures: Bladder surgery, sling. Musculoskeletal Surgical History: Reports: Shoulder Replacement Social & Family History - Caffeine Use Caffeine Use: Reports: Coffee - Living Situation & Occupation Living situation: Reports: ED ROS GENERAL - Review of Systems Review Of Systems: See Below Constitutional: Reports: No Symptoms HEENT: Reports: No Symptoms Respiratory: Reports: No Symptoms Cardiovascular: Reports: No Symptoms Endocrine: Reports: No Symptoms GI/Abdominal: Reports: No Symptoms : Reports: No Symptoms Musculoskeletal: Reports: No Symptoms Skin: Reports: No Symptoms Neurological: Reports: Dizziness. Denies: Confusion, Headache, Numbness, Paresthesia, Pre-Existing Deficit, Syncope, Trouble Speaking, Weakness, Change in Speech Psychiatric: Reports: Depression. Denies: Confusion, Hallucinations, Homicidal Ideation, Suicidal Ideation Hematologic/Lymphatic: Reports: No Symptoms Immunologic: Reports: No Symptoms ED EXAM, GENERAL - Physical Exam Exam: See Below Exam Limited By: No Limitations General Appearance: Alert, WD/WN, No Apparent Distress Eye Exam: Bilateral Eye: EOMI, PERRL Ears: Normal External Exam, Normal Canal, Hearing Grossly Normal, Normal TMs Nose: Normal Inspection, Normal Mucosa, No Blood Throat/Mouth: Normal Inspection, Normal Lips, Normal Teeth, Normal Gums, Normal Oropharynx, Normal Voice, No Airway Compromise Head: Atraumatic, Normocephalic Neck: Normal Inspection, Supple, Non-Tender, Full Range of Motion Respiratory/Chest: No Respiratory Distress, Lungs Clear, Normal Breath Sounds, No Accessory Muscle Use, Chest Non-Tender Cardiovascular: Normal Peripheral Pulses, Regular Rate, Rhythm, No Edema, No Gallop, No JVD, No Murmur, No Rub GI/Abdominal: Normal Bowel Sounds, Soft, Non-Tender, No Organomegaly, No Distention, No Abnormal Bruit, No Mass Back Exam: Normal Inspection, Full Range of Motion, NT Extremities: Normal Inspection, Normal Range of Motion, Non-Tender, Normal Capillary Refill, No Pedal Edema Neurological: Alert, Oriented, CN II-XII Intact, Normal Cognition, Normal Gait, Normal Reflexes, No Motor/Sensory Deficits Psychiatric: Normal Affect, Normal Mood Skin Exam: Warm, Dry, Intact, Normal Color, No Rash Lymphatic: No Adenopathy EKG INTERPRETATION EKG Date: 05/11/18 Time: 16:15 Rhythm: NSR Rate (Beats/Min): 75 [place]: Normal P-Wave: Present QRS: Normal ST-T: Normal QT: Normal Comparison: NA - No Prior EKG Course - Vital Signs Last Recorded V/S: Last Vital Signs Temp 37.0 C 05/11/18 15:25 Pulse 91 05/11/18 15:25 Resp 16 05/11/18 15:25 BP 150/82 H 05/11/18 15:25 Pulse Ox 95 05/11/18 15:25 Orthostatic Blood Pressure [ 148/87 Standing] Orthostatic Blood Pressure [ 153/86 Sitting] Orthostatic Blood Pressure [ 159/75 Supine] - Orders/Labs/Meds Orders: Active Orders 24 hr Category Date Time Status EKG Documentation Completion [RC] ASDIRECTED Care 05/11/18 15:52 Active Peripheral IV Care [RC] . DIRECTED Care 05/11/18 15:35 Active Chest 1V Frontal [CR] Stat Exams 05/11/18 15:52 Ordered Head wo Cont [CT] Stat Exams 05/11/18 15:52 Ordered URINALYSIS W/MICROSCOPIC [UA W/MICROSCOPIC] [URIN] Stat Lab 05/11/18 15:41 Ordered Sodium Chloride 0.9% [Syrex Flush] Med 05/11/18 15:34 Active 5 ml FLUSH Q8HR PRN Peripheral IV Insertion Adult [OM.PC] Routine Oth 05/11/18 15:34 Ordered EKG 12 Lead [EK] Routine Ther 05/11/18 15:52 Ordered Medication Orders Sodium Chloride (Syrex Flush) 5 ml FLUSH Q8HR PRN PRN Reason: Keep Vein Open Labs: Laboratory Tests 05/11/18 05/11/18 05/11/18 Range/Units 15:38 15:38 15:38 WBC 6.7 (5.0-10.0) 10^3/uL RBC 4.03 (3.80-5.50) 10^6/uL Hgb 13.0 (12.0-16.0) g/dL Hct 39.6 (37.0-47.0) % MCV 98.1 H (82.0-92.0) fL MCH 32.1 H (27.0-31.0) pg MCHC 32.7 (32.0-36.0) g/dL RDW 13.2 (11.5-14.5) % Plt Count 344 H D (150-300) 10^3/uL MPV 7.7 (7.4-10.4) fL Neut % (Auto) 66.3 (50.0-70.0) % Lymph % (Auto) 18.6 L (20.0-40.0) % [place] % (Auto) 11.1 H (2.0-8.0) % Eos % (Auto) 3.9 H (1.0-3.0) % Baso % (Auto) 0.1 (0.0-1.0) % Neut # (Auto) 4.5 (2.5-7.0) 10^3/uL Lymph # (Auto) 1.2 (1.0-4.0) 10^3/uL [place] # (Auto) 0.7 (0.1-0.8) 10^3/uL Eos # (Auto) 0.3 (0.1-0.3) 10^3/uL Baso # (Auto) 0.0 (0.0-0.1) 10^3/uL Sodium 130 L (136-145) mmol/L Potassium 4.2 (3.3-5.3) mmol/L Chloride 97 L (98-115) mmol/L Carbon Dioxide 25.9 (21.0-32.0) mmol/L Anion Gap 11.3 (5-15) mmol/L BUN 7 (6-25) mg/dL Creatinine 0.93 (0.51-1.17) mg/dL Est Cr Clr Drug Dosing 45.58 mL/min Estimated GFR (MDRD) 58 mL/min Glucose 110 (70-110) mg/dL Calcium 9.1 (8.7-10.3) mg/dL Total Bilirubin 0.3 (0.2-1.0) mg/dL AST 19 (15-37) U/L ALT 35 (12-78) U/L Alkaline Phosphatase 71 (46-116) IU/L Creatine Kinase 42 (26-276) U/L CK-MB (CK-2) 0.50 (0.00-4.30) ng/mL Troponin I 0.02 (0.00-0.070) ng/mL Total Protein 6.9 (6.4-8.2) g/dL Albumin 3.49 (3.00-4.80) g/dL Urine Color (YELLOW) Urine Appearance (CLEAR) Urine pH (5.0-9.0) Ur Specific [place] (1.005-1.030) Urine Protein (NEGATIVE) mg/dL Urine Glucose (UA) (NEGATIVE) mg/dL Urine Ketones (NEGATIVE) mg/dL Urine Occult Blood (NEGATIVE) Urine Nitrite (NEGATIVE) Urine Bilirubin (NEGATIVE) Urine Urobilinogen (0.2-1.0) E.U./dL Ur Leukocyte Esterase (NEGATIVE) Ethyl Alcohol < 3 (0-3) mg/dL 05/11/18 Range/Units 17:05 WBC (5.0-10.0) 10^3/uL RBC (3.80-5.50) 10^6/uL Hgb (12.0-16.0) g/dL Hct (37.0-47.0) % MCV (82.0-92.0) fL MCH (27.0-31.0) pg MCHC (32.0-36.0) g/dL RDW (11.5-14.5) % Plt Count (150-300) 10^3/uL MPV (7.4-10.4) fL Neut % (Auto) (50.0-70.0) % Lymph % (Auto) (20.0-40.0) % [place] % (Auto) (2.0-8.0) % Eos % (Auto) (1.0-3.0) % Baso % (Auto) (0.0-1.0) % Neut # (Auto) (2.5-7.0) 10^3/uL Lymph # (Auto) (1.0-4.0) 10^3/uL [place] # (Auto) (0.1-0.8) 10^3/uL Eos # (Auto) (0.1-0.3) 10^3/uL Baso # (Auto) (0.0-0.1) 10^3/uL Sodium (136-145) mmol/L Potassium (3.3-5.3) mmol/L Chloride (98-115) mmol/L Carbon Dioxide (21.0-32.0) mmol/L Anion Gap (5-15) mmol/L BUN (6-25) mg/dL Creatinine (0.51-1.17) mg/dL Est Cr Clr Drug Dosing mL/min Estimated GFR (MDRD) mL/min Glucose (70-110) mg/dL Calcium (8.7-10.3) mg/dL Total Bilirubin (0.2-1.0) mg/dL AST (15-37) U/L ALT (12-78) U/L Alkaline Phosphatase (46-116) IU/L Creatine Kinase (26-276) U/L CK-MB (CK-2) (0.00-4.30) ng/mL Troponin I (0.00-0.070) ng/mL Total Protein (6.4-8.2) g/dL Albumin (3.00-4.80) g/dL Urine Color Yellow (YELLOW) Urine Appearance Clear (CLEAR) Urine pH 6.0 (5.0-9.0) Ur Specific [place] <= 1.005 (1.005-1.030) Urine Protein Negative (NEGATIVE) mg/dL Urine Glucose (UA) Negative (NEGATIVE) mg/dL Urine Ketones Negative (NEGATIVE) mg/dL Urine Occult Blood Negative (NEGATIVE) Urine Nitrite Negative (NEGATIVE) Urine Bilirubin Negative (NEGATIVE) Urine Urobilinogen 0.2 (0.2-1.0) E.U./dL Ur Leukocyte Esterase Negative (NEGATIVE) Ethyl Alcohol (0-3) mg/dL Meds: Medications Generic Name Dose Route Start Last Admin Trade Name Freq PRN Reason Stop Dose Admin Sodium Chloride 5 ml 05/11/18 15:34 Syrex Flush FLUSH Q8HR PRN Keep Vein Open Discontinued Medications Generic Name Dose Route Start Last Admin Trade Name Freq PRN Reason Stop Dose Admin Sodium Chloride 1,000 mls @ 999 mls/hr 05/11/18 15:45 05/11/18 15:53 Normal Saline IV 05/11/18 16:45 999 mls/hr .BOLUS ONE Administration - Radiology Interpretation Free Text/Narrative:: Orthostatics- negative but symptomatic from lying to sitting CXR- NAD CT Head- NAD Departure - Departure Time of Disposition: 17:21 Disposition: Refer to Observation Condition: Fair Clinical Impression: Dizziness, Hyponatremia - Discharge Information Referrals: Cristal Jimenez PA-C [Primary Care Provider] - Forms: ED Department Discharge - My Orders Last 24 Hours: My Active Orders 05/11/18 15:34 Sodium Chloride 0.9% [Syrex Flush] 5 ml FLUSH Q8HR PRN Peripheral IV Insertion Adult [OM.PC] Routine 05/11/18 15:35 Peripheral IV Care [RC] . DIRECTED 05/11/18 15:41 URINALYSIS W/MICROSCOPIC [UA W/MICROSCOPIC] [URIN] Stat 05/11/18 15:52 EKG Documentation Completion [RC] ASDIRECTED Chest 1V Frontal [CR] Stat Head wo Cont [CT] Stat EKG 12 Lead [EK] Routine - Assessment/Plan Last 24 Hours: My Active Orders 05/11/18 15:34 Sodium Chloride 0.9% [Syrex Flush] 5 ml FLUSH Q8HR PRN Peripheral IV Insertion Adult [OM.PC] Routine 05/11/18 15:35 Peripheral IV Care [RC] . DIRECTED 05/11/18 15:41 URINALYSIS W/MICROSCOPIC [UA W/MICROSCOPIC] [URIN] Stat 05/11/18 15:52 EKG Documentation Completion [RC] ASDIRECTED Chest 1V Frontal [CR] Stat Head wo Cont [CT] Stat EKG 12 Lead [EK] Routine Assessment:: 1. Dizziness 2. Hyponatremia Plan: 1. Admit for [address] Alfred- Dizziness-unresolved and hyponatremia 2. NS @100cc/hr 3. supportive care 4. repeat labs in am
[2018-05-11 16:38] LABS: ANION GAP 11.3 mmol/L (5-15)
[2018-05-11] MEDS ORDERED: PYRIDOXINE HCL PO PRN (17:29)
[2018-05-11] MEDS ORDERED: MELATONIN PO PRN (17:29)
[2018-05-11] MEDS ORDERED: [UNRECOGNIZED DRUG - OTHER] PO PRN (17:29)
[2018-05-11] MEDS ORDERED: busPIRone 5 MG Tab ONE (19:53)
[2018-05-11] MEDS ORDERED: traZODone 50 MG Tab ONE (19:54)
[2018-05-11] MEDS: busPIRone 5 MG Tab PO SCH (20:15)
[2018-05-11] MEDS: Sodium Chloride 0.9% 1,000 ML IV SCH (20:15)
[2018-05-11] MEDS ORDERED: Non-Formulary Medication 1 Each (Trazodone Hcl 100 MG) PO SCH (21:00)
[2018-05-11] MEDS ORDERED: traZODone 50 MG Tab PO SCH (21:00)
[2018-05-11] MEDS ORDERED: BUSPIRONE 10 MG PO SCH (21:00)
[2018-05-11] MEDS: ALPRAZolam 0.25 MG Tab PO PRN (22:08)
[2018-05-11] MEDS ORDERED: Vitamin B6-pyridOXINE 50 MG Tab PO PRN (23:20)
[2018-05-11] MEDS ORDERED: Melatonin 3 MG Tab PO PRN (23:24)
[2018-05-12] MEDS: Sodium Chloride 0.9% 1,000 ML IV SCH (06:11)
[2018-05-12] MEDS ORDERED: Levothyroxine 25 MCG Tab PO SCH (07:30)
[2018-05-12 07:59] LABS: CHLORIDE,CL 107 mmol/L (98-115); SODIUM,NA 142 mmol/L (136-145)
[2018-05-12] MEDS: busPIRone 5 MG Tab PO SCH (08:46)
[2018-05-12] MEDS ORDERED: Escitalopram 10 MG Tab PO SCH (09:00)
[2018-05-12] MEDS ORDERED: Vitamin B Complex Tab PO SCH (09:00)
[2018-05-12] MEDS ORDERED: Non-Formulary Medication 1 Each (Escitalopram [Lexapro] 20 MG) PO SCH (09:00)
--- NOTE | 2018-05-12 15:49 | PCM.DCSUM1 ---
Discharge Summary - Hospital Course Free Text/Narrative:: Sharon is being discharged from an observation stay from 05/11/19 - 05/12/18 for dizziness with feeling unsafe at home due to dizziness. She resides at assisted living. EKG, head CT UA, EtOH and orthostatic's all negative. Sodium was 130 and chloride 97 at admission, at discharge after IVF's of NS she was 142 chloride was 107. She has been up and around throughout the day and the dizziness has resolved. She had no symptoms of vertigo. No medication changes. She will return to assisted with home services. This serves as the face to face encounter for home health services to include nursing and PT. She requires these services to develop an in home therapy program, to have an in home safety assessment and to develop a strength and endurance program. She has decreased strength due to fatigue and muscle weakness as well as having an unsteady gait. Will also refer for meals on wheels. Modified Mcdonald Scale: No Symptoms at All Modified Jennifer Scale Score: 0 - Discharge Data Discharge Date: 05/12/18 Discharge Disposition: Home, Self-Care 01 Condition: Good - Discharge Diagnosis/Problem(s) (1) Dizziness SNOMED Code(s): 101525333, 790196177 ICD Code: R42 - DIZZINESS AND GIDDINESS Status: Acute Current Visit: Yes (2) Hyponatremia SNOMED Code(s): 00684086 ICD Code: E87.1 - HYPO-OSMOLALITY AND HYPONATREMIA Status: Acute Current Visit: Yes (3) Depression with anxiety SNOMED Code(s): 091386734 ICD Code: F41.8 - OTHER SPECIFIED ANXIETY DISORDERS Status: Chronic Current Visit: No - Patient Instructions Diet: Regular Diet as Tolerated Activity: As Tolerated - Discharge Plan Home Medications: Home Meds Melatonin/Pyridoxine HCl (B6) [Melatonin 3 mg Tablet] 6 mg PO BEDTIME PRN [History] Vitamin B Complex 1 each PO DAILY 07/17/15 [History] Levothyroxine Sodium [Synthroid] 25 mcg PO ACBREAKFAST 06/16/17 [History] Nebivolol [Bystolic] 10 mg PO BEDTIME 06/16/17 [History] traZODone HCl [Trazodone HCl] 100 mg PO BEDTIME 11/10/17 [History] ALPRAZolam [Alprazolam] 0.25 mg PO TID PRN 01/19/18 [History] Escitalopram [Lexapro] 20 mg PO DAILY 01/19/18 [History] busPIRone [Buspar] 10 mg PO BID 01/19/18 [History] Referrals: Cristal Jimenez PA-C [Primary Care Provider] - - Discharge Summary/Plan Comment DC Time >30 min.: No - General Info Date of Service: 05/12/18 - Review of Systems Systems Review Comment: 10 point ROS obtained, all pertinent positives listed in the HPI, all other systems are negative. - Patient Data Vitals - Most Recent: Last Vital Signs Temp 98.4 F 05/12/18 15:00 Pulse 60 05/12/18 15:00 Resp 18 05/12/18 15:00 BP 127/66 05/12/18 15:00 Pulse Ox 94 L 05/12/18 15:00 Orthostatic Blood Pressure [ 148/87 Standing] Orthostatic Blood Pressure [ 153/86 Sitting] Orthostatic Blood Pressure [ 159/75 Supine] Weight - Most Recent: 168 lb I&O - Last 24 hours: Intake & Output 05/12/18 05/12/18 05/12/18 06:59 14:59 22:59 Intake Total 922 1312 Output Total 1250 600 Balance -328 712 Lab Results - Last 24 hrs: Laboratory Results - last 24 hr 05/11/18 05/11/18 05/11/18 Range/Units 15:38 15:38 15:38 WBC 6.7 (5.0-10.0) 10^3/uL RBC 4.03 (3.80-5.50) 10^6/uL Hgb 13.0 (12.0-16.0) g/dL Hct 39.6 (37.0-47.0) % MCV 98.1 H (82.0-92.0) fL MCH 32.1 H (27.0-31.0) pg MCHC 32.7 (32.0-36.0) g/dL RDW 13.2 (11.5-14.5) % Plt Count 344 H D (150-300) 10^3/uL MPV 7.7 (7.4-10.4) fL Neut % (Auto) 66.3 (50.0-70.0) % Lymph % (Auto) 18.6 L (20.0-40.0) % [place] % (Auto) 11.1 H (2.0-8.0) % Eos % (Auto) 3.9 H (1.0-3.0) % Baso % (Auto) 0.1 (0.0-1.0) % Neut # (Auto) 4.5 (2.5-7.0) 10^3/uL Lymph # (Auto) 1.2 (1.0-4.0) 10^3/uL [place] # (Auto) 0.7 (0.1-0.8) 10^3/uL Eos # (Auto) 0.3 (0.1-0.3) 10^3/uL Baso # (Auto) 0.0 (0.0-0.1) 10^3/uL Sodium 130 L (136-145) mmol/L Potassium 4.2 (3.3-5.3) mmol/L Chloride 97 L (98-115) mmol/L Carbon Dioxide 25.9 (21.0-32.0) mmol/L Anion Gap 11.3 (5-15) mmol/L BUN 7 (6-25) mg/dL Creatinine 0.93 (0.51-1.17) mg/dL Est Cr Clr Drug Dosing 45.58 mL/min Estimated GFR (MDRD) 58 mL/min Glucose 110 (70-110) mg/dL Calcium 9.1 (8.7-10.3) mg/dL Total Bilirubin 0.3 (0.2-1.0) mg/dL AST 19 (15-37) U/L ALT 35 (12-78) U/L Alkaline Phosphatase 71 (46-116) IU/L Creatine Kinase 42 (26-276) U/L CK-MB (CK-2) 0.50 (0.00-4.30) ng/mL Troponin I 0.02 (0.00-0.070) ng/mL Total Protein 6.9 (6.4-8.2) g/dL Albumin 3.49 (3.00-4.80) g/dL Specimen Type Urine Color (YELLOW) Urine Appearance (CLEAR) Urine pH (5.0-9.0) Ur Specific [place] (1.005-1.030) Urine Protein (NEGATIVE) mg/dL Urine Glucose (UA) (NEGATIVE) mg/dL Urine Ketones (NEGATIVE) mg/dL Urine Occult Blood (NEGATIVE) Urine Nitrite (NEGATIVE) Urine Bilirubin (NEGATIVE) Urine Urobilinogen (0.2-1.0) E.U./dL Ur Leukocyte Esterase (NEGATIVE) Urine RBC /HPF Urine WBC /HPF Ur Epithelial Cells /LPF Urine Bacteria (NONE TO FEW) /HPF Urine Mucus (NEGATIVE) /LPF Ethyl Alcohol < 3 (0-3) mg/dL 05/11/18 05/12/18 05/12/18 Range/Units 17:05 07:30 07:30 WBC 5.4 (5.0-10.0) 10^3/uL RBC 3.65 L (3.80-5.50) 10^6/uL Hgb 11.6 L (12.0-16.0) g/dL Hct 35.5 L (37.0-47.0) % MCV 97.4 H (82.0-92.0) fL MCH 31.8 H (27.0-31.0) pg MCHC 32.6 (32.0-36.0) g/dL RDW 12.9 (11.5-14.5) % Plt Count 297 (150-300) 10^3/uL MPV 7.5 (7.4-10.4) fL Neut % (Auto) 59.7 (50.0-70.0) % Lymph % (Auto) 21.3 (20.0-40.0) % [place] % (Auto) 11.7 H (2.0-8.0) % Eos % (Auto) 5.5 H (1.0-3.0) % Baso % (Auto) 1.8 H (0.0-1.0) % Neut # (Auto) 3.2 (2.5-7.0) 10^3/uL Lymph # (Auto) 1.2 (1.0-4.0) 10^3/uL [place] # (Auto) 0.6 (0.1-0.8) 10^3/uL Eos # (Auto) 0.3 (0.1-0.3) 10^3/uL Baso # (Auto) 0.1 (0.0-0.1) 10^3/uL Sodium 142 D (136-145) mmol/L Potassium 4.5 (3.3-5.3) mmol/L Chloride 107 (98-115) mmol/L Carbon Dioxide 27.5 (21.0-32.0) mmol/L Anion Gap 12.0 (5-15) mmol/L BUN 4 L (6-25) mg/dL Creatinine 0.79 (0.51-1.17) mg/dL Est Cr Clr Drug Dosing 53.66 mL/min Estimated GFR (MDRD) > 60 mL/min Glucose 94 (70-110) mg/dL Calcium 8.6 L (8.7-10.3) mg/dL Total Bilirubin (0.2-1.0) mg/dL AST (15-37) U/L ALT (12-78) U/L Alkaline Phosphatase (46-116) IU/L Creatine Kinase (26-276) U/L CK-MB (CK-2) (0.00-4.30) ng/mL Troponin I (0.00-0.070) ng/mL Total Protein (6.4-8.2) g/dL Albumin (3.00-4.80) g/dL Specimen Type Urinvoid Urine Color Yellow (YELLOW) Urine Appearance Clear (CLEAR) Urine pH 6.0 (5.0-9.0) Ur Specific [place] <= 1.005 (1.005-1.030) Urine Protein Negative (NEGATIVE) mg/dL Urine Glucose (UA) Negative (NEGATIVE) mg/dL Urine Ketones Negative (NEGATIVE) mg/dL Urine Occult Blood Negative (NEGATIVE) Urine Nitrite Negative (NEGATIVE) Urine Bilirubin Negative (NEGATIVE) Urine Urobilinogen 0.2 (0.2-1.0) E.U./dL Ur Leukocyte Esterase Negative (NEGATIVE) Urine RBC Not seen /HPF Urine WBC 0-5 /HPF Ur Epithelial Cells Rare /LPF Urine Bacteria Rare (NONE TO FEW) /HPF Urine Mucus Few H (NEGATIVE) /LPF Ethyl Alcohol (0-3) mg/dL Med Orders - Current: Current Medications Alprazolam (Xanax) 0.25 mg PO TID PRN PRN Reason: Anxiety Last Admin: 05/11/18 22:08 Dose: 0.25 mg Buspirone HCl (Buspar) 10 mg PO BID [facility] Last Admin: 05/12/18 08:46 Dose: 10 mg Escitalopram Oxalate (Lexapro) 20 mg PO DAILY [facility] Last Admin: 05/12/18 08:46 Dose: 20 mg Sodium Chloride (Normal Saline) 1,000 mls @ 100 mls/hr IV ASDIRECTED [facility] Last Admin: 05/12/18 06:11 Dose: 100 mls/hr Levothyroxine Sodium (Levothyroxine) 25 mcg PO ACBREAKFAST [facility] Last Admin: 05/12/18 06:31 Dose: 25 mcg Melatonin (Melatonin) 6 mg PO BEDTIME PRN PRN Reason: Insomnia Nebivolol (Bystolic) 10 mg PO BEDTIME [facility] Last Admin: 05/11/18 20:14 Dose: 10 mg Pyridoxine HCl (Vitamin B6-Pyridoxine) 100 mg PO DAILY PRN PRN Reason: Insomnia Sodium Chloride (Syrex Flush) 5 ml FLUSH Q8HR PRN PRN Reason: Keep Vein Open Trazodone HCl (Trazodone) 100 mg PO 2100 [facility] Last Admin: 05/11/18 20:15 Dose: 100 mg Vitamin B Complex (Vitamin B Complex) 1 each PO DAILY [facility] Last Admin: 05/12/18 08:47 Dose: 1 each Discontinued Medications Buspirone HCl (Buspar) Confirm Administered Dose 10 mg .ROUTE .STK-MED ONE Stop: 05/11/18 19:54 Last Admin: 05/11/18 20:14 Dose: Not Given Sodium Chloride (Normal Saline) 1,000 mls @ 999 mls/hr IV .BOLUS ONE Stop: 05/11/18 16:45 Last Admin: 05/11/18 15:53 Dose: 999 mls/hr Non-Formulary Medication (Buspirone) 10 mg PO BID [facility] Non-Formulary Medication (Escitalopram [Lexapro]) 20 mg PO DAILY [facility] Non-Formulary Medication (Melatonin/Pyridoxine Hcl (B6) [Melatonin 3 Mg Tablet] ) 6 mg PO BEDTIME PRN PRN Reason: Insomnia Non-Formulary Medication (Trazodone Hcl) 100 mg PO BEDTIME [facility] Sodium Chloride (Syrex Flush) 5 ml FLUSH Q8HR PRN PRN Reason: Keep Vein Open Trazodone HCl (Trazodone) Confirm Administered Dose 100 mg .ROUTE .STK-MED ONE Stop: 05/11/18 19:55 Last Admin: 05/11/18 20:14 Dose: Not Given - Exam General: Reports: Alert, Oriented, Cooperative, No Acute Distress Lungs: Reports: Clear to Auscultation, Normal Respiratory Effort Cardiovascular: Reports: Regular Rate, Regular Rhythm
[2018-05-12] MEDS: ALPRAZolam 0.25 MG Tab PO PRN (18:06)
[2018-05-12 19:19] VITALS: BP 118/65
== END 2018-05-12 19:45 | disposition home or self-care (01) ==
LOC: KA.ED 15:20 → KA.MS 17:25
PROVIDERS: ADMIT Physician Assistant Medical; ATTEND Internal Medicine
DX: R42 Dizziness and giddiness (principal); E87.1 Hypo-osmolality and hyponatremia; F41.8 Other specified anxiety disorders; E78.00 Pure hypercholesterolemia, unspecified; I10 Essential (primary) hypertension; K21.9 Gastro-esophageal reflux disease without esophagitis; R19.7 Diarrhea, unspecified; E03.9 Hypothyroidism, unspecified; F41.9 Anxiety disorder, unspecified; F32.9 Major depressive disorder, single episode, unspecified; F41.0 Panic disorder [episodic paroxysmal anxiety]; Z79.899 Other long term (current) drug therapy; Z88.2 Allergy status to sulfonamides; Z91.011 Allergy to milk products; Z91.018 Allergy to other foods; Z91.048 Other nonmedicinal substance allergy status
CPT/HCPCS: 36415; 70450; 71045; 80048; 80053; 81001; 82550; 82553; 84484; 85025; 93005; 96360; 96361; 99217; 99220; 99285; A9270-GY; G0378; G0480; J7030

== ENCOUNTER 2018-06-15 08:52 | Emergency (ER) | payer MEDICARE, OTHER ==
[2018-06-15 09:09] VITALS: BP 137/70
--- NOTE | 2018-06-15 09:30 | EDM.PDOC ---
ED HPI GENERAL MEDICAL PROBLEM - General Chief Complaint: General Stated Complaint: ? BLADDER INFECTION Time Seen by Provider: 06/15/18 09:18 Source of Information: Reports: Patient History Limitations: Reports: No Limitations - History of Present Illness INITIAL COMMENTS - FREE TEXT/NARRATIVE: Patient is a 77-year-old female who presents to the emergency department this morning with a complaint of dysuria and lower abdominal pressure. Patient states that she noticed symptoms first thing this morning. She does have a history of UTIs in the past. Patient denies flank pain, fever, nausea, vomiting , diarrhea, or vaginal bleeding. Onset: Today Onset Date: 06/15/18 Duration: Hour(s): Location: Reports: Abdomen Quality: Reports: Pressure Severity: Mild Improves with: Reports: Other (Urination) Worsens with: Reports: None Associated Symptoms: Reports: No Other Symptoms - Related Data Allergies Allergy/AdvReac Type Severity Reaction Status Date / Time feathers Allergy Other Verified 06/15/18 09:10 formaldehyde Allergy Other Verified 06/15/18 09:10 gluten Allergy Other Verified 06/15/18 09:10 lactose Allergy Diarrhea Verified 06/15/18 09:10 pollen extracts Allergy Other Verified 06/15/18 09:10 Sulfa (Sulfonamide Allergy Other Verified 06/15/18 09:10 Antibiotics) bleach Allergy Unknown Other Uncoded 01/19/18 10:01 green letuce Allergy Diarrhea Uncoded 01/19/18 10:01 Home Meds: Home Meds Melatonin/Pyridoxine HCl (B6) [Melatonin 3 mg Tablet] 6 mg PO BEDTIME PRN [History] Vitamin B Complex 1 each PO DAILY 07/17/15 [History] Levothyroxine Sodium [Synthroid] 25 mcg PO ACBREAKFAST 06/16/17 [History] Nebivolol [Bystolic] 10 mg PO BEDTIME 06/16/17 [History] traZODone HCl [Trazodone HCl] 100 mg PO BEDTIME 11/10/17 [History] ALPRAZolam [Alprazolam] 0.25 mg PO TID PRN 01/19/18 [History] Escitalopram [Lexapro] 20 mg PO DAILY 01/19/18 [History] busPIRone [Buspar] 10 mg PO BID 01/19/18 [History] ARIPiprazole [Aripiprazole] 10 mg PO DAILY 06/15/18 [History] Cephalexin [Keflex] 500 mg PO TID #15 capsule 06/15/18 [Rx] Sodium Chloride 1 gm PO DAILY 06/15/18 [History] Past Medical History HEENT History: Reports: Impaired Vision Cardiovascular History: Reports: High Cholesterol, Hypertension Gastrointestinal History: Reports: Chronic Diarrhea, GERD Genitourinary History: Reports: Urinary Incontinence [employer] History: Reports: Neurological History: Reports: TIA Other Neuro History: 2014 Psychiatric History: Reports: Anxiety, Depression, Panic Attack Endocrine/Metabolic History: Reports: Hyperthyroidism, Hypothyroidism, Other ( See Below) Other Endocrine/Metabolic History: Pt can not recall if she has hyper or hypo thyroidism; but she takes synthroid Hematologic History: Reports: Blood Transfusion(s) Oncologic (Cancer) History: Reports: Basal Cell Carcinoma Dermatologic History: Reports: Other (See Below) Other Dermatologic History: Basal cell CA - Infectious Disease History Infectious Disease History: Reports: Chicken Pox, Measles, Mumps - Past Surgical History Head Surgeries/Procedures: Reports: None Female Surgical History: Reports: D&C, Hysterectomy, Other (See Below) Other Female Surgeries/Procedures: Bladder surgery, sling. Musculoskeletal Surgical History: Reports: Shoulder Replacement Social & Family History - Family History Family Medical History: Noncontributory - Tobacco Use Smoking Status *Q: Former Smoker Used Tobacco, but Quit: Yes Month/Year Tobacco Last Used: 1997 Second Hand Smoke Exposure: No - Caffeine Use Caffeine Use: Reports: Coffee, Soda, Tea - Recreational Drug Use Recreational Drug Use: No - Living Situation & Occupation Living situation: Reports: ED ROS GENERAL - Review of Systems Review Of Systems: ROS reveals no pertinent complaints other than HPI. Constitutional: Reports: No Symptoms HEENT: Reports: No Symptoms Respiratory: Reports: No Symptoms Cardiovascular: Reports: No Symptoms Endocrine: Reports: No Symptoms GI/Abdominal: Reports: Abdominal Pain (Lower abdominal fullness) : Reports: Dysuria Musculoskeletal: Reports: No Symptoms Skin: Reports: No Symptoms Neurological: Reports: No Symptoms Psychiatric: Reports: No Symptoms Hematologic/Lymphatic: Reports: No Symptoms Immunologic: Reports: No Symptoms ED EXAM, GENERAL - Physical Exam Exam: See Below Exam Limited By: No Limitations General Appearance: Alert, WD/WN, No Apparent Distress Throat/Mouth: Normal Inspection, Normal Oropharynx, No Airway Compromise Respiratory/Chest: No Respiratory Distress, Lungs Clear, Normal Breath Sounds, No Accessory Muscle Use, Chest Non-Tender Cardiovascular: Normal Peripheral Pulses, Regular Rate, Rhythm GI/Abdominal: Normal Bowel Sounds, Soft, Non-Tender, No Organomegaly, No Distention, No Abnormal Bruit, No Mass Back Exam: Normal Inspection. No: CVA Tenderness (L), CVA Tenderness (R) Extremities: Normal Inspection, No Pedal Edema Neurological: Alert, Oriented, Normal Cognition Psychiatric: Normal Affect, Normal Mood Skin Exam: Warm, Dry, Intact, Normal Color, No Rash Lymphatic: No Adenopathy Course - Vital Signs Last Recorded V/S: Last Vital Signs Temp 98.7 F 06/15/18 09:05 Pulse 80 06/15/18 09:05 Resp 18 06/15/18 09:05 BP 137/70 06/15/18 09:05 Pulse Ox 96 06/15/18 09:05 - Orders/Labs/Meds Orders: Active Orders 24 hr Category Date Time Status CULTURE URINE [RM] Stat Lab 06/15/18 09:38 Ordered UA W/MICROSCOPIC [URIN] Stat Lab 06/15/18 09:02 Ordered Labs: Laboratory Tests 06/15/18 Range/Units 09:00 Specimen Type Urincc Urine Color Kathrin H (YELLOW) Urine Appearance Cloudy H (CLEAR) Urine pH 5.5 (5.0-9.0) Ur Specific [place] 1.025 (1.005-1.030) Urine Protein >=300 H (NEGATIVE) mg/dL Urine Glucose (UA) Negative (NEGATIVE) mg/dL Urine Ketones Trace H (NEGATIVE) mg/dL Urine Occult Blood Large H (NEGATIVE) Urine Nitrite Negative (NEGATIVE) Urine Bilirubin Moderate H (NEGATIVE) Urine Urobilinogen 1.0 (0.2-1.0) E.U./dL Ur Leukocyte Esterase Small H (NEGATIVE) Urine RBC Packed /HPF Urine WBC Packed /HPF Ur Epithelial Cells Few /LPF Urine Bacteria See note (NONE TO FEW) /HPF Meds: Medications Discontinued Medications Generic Name Dose Route Start Last Admin Trade Name Freq PRN Reason Stop Dose Admin Ceftriaxone Sodium 1 gm 06/15/18 09:38 Rocephin IM 06/15/18 09:39 ONETIME ONE - Re-Assessments/Exams Free Text/Narrative Re-Assessment/Exam: 06/15/18 09:44 Patient afebrile, nontoxic appearing, vital signs stable. Patient given 1 g IM Rocephin in the ER. Urine culture ordered. Patient will follow-up with Dr. Petar Romero in 3-5 days for recheck Departure - Departure Time of Disposition: 09:45 Disposition: Home, Self-Care 01 Condition: Good Clinical Impression: Urinary tract infection Qualifiers: Urinary tract infection type: acute cystitis Hematuria presence: with hematuria Qualified Code(s): N30.01 - Acute cystitis with hematuria - Discharge Information Prescriptions: Cephalexin [Keflex] 500 mg PO TID #15 capsule Instructions: Urinary Tract Infection, Adult, [id number], Urine Culture and Sensitivity Testing Referrals: Heydi Villalba MD [Primary Care Provider] - Forms: ED Department Discharge Additional Instructions: Follow-up with Dr. Vaelro in 3-5 days. Return to the emergency department sooner if symptoms continue or worsen. Drink plenty of water. - My Orders Last 24 Hours: My Active Orders 06/15/18 09:02 UA W/MICROSCOPIC [URIN] Stat 06/15/18 09:38 CULTURE URINE [RM] Stat - Assessment/Plan Last 24 Hours: My Active Orders 06/15/18 09:02 UA W/MICROSCOPIC [URIN] Stat 06/15/18 09:38 CULTURE URINE [RM] Stat Assessment:: Urinary tract infection Plan: Follow-up with Dr. Valero in 3-5 days
[2018-06-15] MEDS ORDERED: cefTRIAXone 1 GM Vial IM ONE (09:38)
== END 2018-06-15 10:00 | disposition home or self-care (01) ==
LOC: KA.ED 08:52
DX: N30.01 Acute cystitis with hematuria (principal); I10 Essential (primary) hypertension; E78.00 Pure hypercholesterolemia, unspecified; K21.9 Gastro-esophageal reflux disease without esophagitis; E03.9 Hypothyroidism, unspecified; Z79.899 Other long term (current) drug therapy; Z87.891 Personal history of nicotine dependence; Z88.2 Allergy status to sulfonamides; Z91.09 Other allergy status, other than to drugs and biological substances; Z91.011 Allergy to milk products; Z88.8 Allergy status to other drugs, medicaments and biological substances
CPT/HCPCS: 81001; 87086; 96372; 99283; J0696

== ENCOUNTER 2018-07-03 16:25 | Emergency (ER) | payer MEDICARE, OTHER ==
--- NOTE | 2018-07-03 17:29 | EDM.PDOC ---
ED HPI GENERAL MEDICAL PROBLEM - General Chief Complaint: General Stated Complaint: Hypertension Time Seen by Provider: 07/03/18 17:21 Source of Information: Reports: Patient History Limitations: Reports: No Limitations - History of Present Illness INITIAL COMMENTS - FREE TEXT/NARRATIVE: Patient is a 76-year-old female who presents to the emergency department this afternoon sent from the clinic after being evaluated for hypertension. Patient was unable to see provider, and the clinic nurse took her blood pressure which was found to be high. She was then transferred to the ER. Initial blood pressure reading in the emergency department was 180s over 80s. Patient states last couple days she's had episodes of dizziness upon rising to standing position. Patient states when she is sitting down and stands up quickly she gets a little dizzy. However, she states this does not happen when she ambulates or lies down. Patient denies chest pain, shortness of breath, nausea , vomiting, diarrhea, or fever. Patient does have a history of hypertension and is currently on by bystolic 10 mg daily. Patient also takes 3 different kinds of anxiety/depression medication. This is administered twice a day by nursing staff at assisted living facility. There has been no recent change in medication or any added medication. However, patient does admit to eating bags of liquorice per day. Patient was also seen and admitted to the [facility] for same complaint and discharged 05/11/2018. Onset: Gradual Duration: Day(s): Location: Reports: Head Quality: Reports: Other (No pain, just dizziness upon rising) Severity: Mild Improves with: Reports: Immobilization Worsens with: Reports: Other (Upon rising) Associated Symptoms: Reports: No Other Symptoms. Denies: Chest Pain, Diaphoresis, Fever/Chills, Headaches, Nausea/Vomiting, Shortness of Breath, Syncope, Weakness - Related Data Allergies Allergy/AdvReac Type Severity Reaction Status Date / Time feathers Allergy Other Verified 07/03/18 16:38 formaldehyde Allergy Other Verified 07/03/18 16:38 gluten Allergy Other Verified 07/03/18 16:38 lactose Allergy Diarrhea Verified 07/03/18 16:38 pollen extracts Allergy Other Verified 07/03/18 16:38 Sulfa (Sulfonamide Allergy Other Verified 07/03/18 16:38 Antibiotics) bleach Allergy Unknown Other Uncoded 07/03/18 16:38 green letuce Allergy Diarrhea Uncoded 07/03/18 16:38 Home Meds: Home Meds Melatonin/Pyridoxine HCl (B6) [Melatonin 3 mg Tablet] 6 mg PO BEDTIME PRN [History] Vitamin B Complex 1 each PO DAILY 07/17/15 [History] Levothyroxine Sodium [Synthroid] 25 mcg PO ACBREAKFAST 06/16/17 [History] Nebivolol [Bystolic] 10 mg PO DAILY 06/16/17 [History] traZODone HCl [Trazodone HCl] 100 mg PO BEDTIME 11/10/17 [History] ALPRAZolam [Alprazolam] 0.25 mg PO TID PRN 01/19/18 [History] Escitalopram [Lexapro] 20 mg PO DAILY 01/19/18 [History] busPIRone [Buspar] 10 mg PO BID 01/19/18 [History] ARIPiprazole [Aripiprazole] 10 mg PO DAILY 06/15/18 [History] Sodium Chloride 1 gm PO BID 06/15/18 [History] Acetaminophen [Extra Strength Non-Aspirin] 500 mg PO Q6H PRN 07/03/18 [History] Past Medical History HEENT History: Reports: Impaired Vision Cardiovascular History: Reports: High Cholesterol, Hypertension Gastrointestinal History: Reports: Chronic Diarrhea, GERD Genitourinary History: Reports: Urinary Incontinence 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: Neurological History: Reports: TIA Other Neuro History: 2014 Psychiatric History: Reports: Anxiety, Depression, Panic Attack Endocrine/Metabolic History: Reports: Hyperthyroidism, Hypothyroidism, Other ( See Below) Other Endocrine/Metabolic History: Pt can not recall if she has hyper or hypo thyroidism; but she takes synthroid Hematologic History: Reports: Blood Transfusion(s) Oncologic (Cancer) History: Reports: Basal Cell Carcinoma Dermatologic History: Reports: Other (See Below) Other Dermatologic History: Basal cell CA - Infectious Disease History Infectious Disease History: Reports: Chicken Pox, Measles, Mumps - Past Surgical History Head Surgeries/Procedures: Reports: None Female Surgical History: Reports: D&C, Hysterectomy, Other (See Below) Other Female Surgeries/Procedures: Bladder surgery, sling. Musculoskeletal Surgical History: Reports: Shoulder Replacement Social & Family History - Family History Family Medical History: Noncontributory - Tobacco Use Smoking Status *Q: Former Smoker Used Tobacco, but Quit: Yes Month/Year Tobacco Last Used: 1987 - Caffeine Use Caffeine Use: Reports: Coffee, Soda, Tea - Recreational Drug Use Recreational Drug Use: No - Living Situation & Occupation Living situation: Reports: ED ROS GENERAL - Review of Systems Review Of Systems: ROS reveals no pertinent complaints other than HPI. Constitutional: Reports: No Symptoms HEENT: Reports: No Symptoms Respiratory: Reports: No Symptoms. Denies: Shortness of Breath Cardiovascular: Reports: No Symptoms. Denies: Chest Pain Endocrine: Reports: No Symptoms GI/Abdominal: Reports: No Symptoms : Reports: No Symptoms Musculoskeletal: Reports: No Symptoms Skin: Reports: No Symptoms Neurological: Reports: Dizziness. Denies: Headache Psychiatric: Reports: Anxiety Hematologic/Lymphatic: Reports: No Symptoms Immunologic: Reports: No Symptoms ED EXAM, GENERAL - Physical Exam Exam: See Below Exam Limited By: No Limitations General Appearance: Alert, WD/WN, No Apparent Distress Ears: Normal External Exam, Normal Canal, Normal TMs Nose: Normal Inspection, Normal Mucosa, No Blood Throat/Mouth: Normal Inspection, Normal Oropharynx, No Airway Compromise Head: Atraumatic, Normocephalic Neck: Normal Inspection, Supple, Non-Tender, Full Range of Motion Respiratory/Chest: No Respiratory Distress, Lungs Clear, Normal Breath Sounds, No Accessory Muscle Use, Chest Non-Tender Cardiovascular: Normal Peripheral Pulses, Regular Rate, Rhythm, No Murmur GI/Abdominal: Normal Bowel Sounds, Soft, Non-Tender Back Exam: Normal Inspection. No: CVA Tenderness (L), CVA Tenderness (R) Extremities: Normal Inspection, No Pedal Edema Neurological: Alert, Oriented, CN II-XII Intact, Normal Cognition, No Motor/ Sensory Deficits Psychiatric: Normal Affect, Normal Mood Skin Exam: Warm, Dry, Intact, Normal Color, No Rash Lymphatic: No Adenopathy Course - Vital Signs Last Recorded V/S: Last Vital Signs Temp 98.3 F 07/03/18 16:35 Pulse 64 07/03/18 16:53 Resp 20 07/03/18 16:53 BP 179/73 H 07/03/18 16:53 Pulse Ox 96 07/03/18 16:53 - Orders/Labs/Meds Orders: Active Orders 24 hr Category Date Time Status Nebivolol [Bystolic] Med 07/04/18 17:21 Once 5 mg PO ONETIME ONE Medication Orders Nebivolol (Bystolic) 5 mg PO ONETIME ONE Stop: 07/04/18 17:22 Meds: Medications Generic Name Dose Route Start Last Admin Trade Name Tana PRN Reason Stop Dose Admin Nebivolol 5 mg 07/04/18 17:21 Bystolic PO 07/04/18 17:22 ONETIME ONE - Re-Assessments/Exams Free Text/Narrative Re-Assessment/Exam: 07/03/18 18:07 Patient afebrile, nontoxic appearing, vital signs stable. Patient's blood pressure now 160 over 80s. Following 5 mg of Bystolic. Patient will follow-up tomorrow with Dr. Valero for evaluation of medication and possible changes. Departure - Departure Time of Disposition: 18:09 Disposition: Home, Self-Care 01 Condition: Good Clinical Impression: Dizziness - Discharge Information Instructions: Dizziness, [id number], Hypertension, [id number] Referrals: Heydi Villalba MD [Primary Care Provider] - Additional Instructions: Follow-up with Dr. Valero tomorrow. Return to emergency room sooner if symptoms continue or worsen. - My Orders Last 24 Hours: My Active Orders 07/04/18 17:21 Nebivolol [Bystolic] 5 mg PO ONETIME ONE - Assessment/Plan Last 24 Hours: My Active Orders 07/04/18 17:21 Nebivolol [Bystolic] 5 mg PO ONETIME ONE Assessment:: Hypertension, dizziness Plan: Follow-up with Dr. Valero tomorrow
[2018-07-03 18:04] VITALS: BP 163/83
== END 2018-07-03 18:20 | disposition home or self-care (01) ==
LOC: KA.ED 16:25
DX: I10 Essential (primary) hypertension (principal); E78.00 Pure hypercholesterolemia, unspecified; F41.9 Anxiety disorder, unspecified; F32.9 Major depressive disorder, single episode, unspecified; K21.9 Gastro-esophageal reflux disease without esophagitis; Z87.891 Personal history of nicotine dependence; Z79.899 Other long term (current) drug therapy; Z88.2 Allergy status to sulfonamides; Z91.011 Allergy to milk products; Z91.09 Other allergy status, other than to drugs and biological substances; Z88.8 Allergy status to other drugs, medicaments and biological substances
CPT/HCPCS: 99283; A9270-GY

== ENCOUNTER 2019-01-20 15:12 | Observation (INO) | payer MEDICARE, OTHER ==
[2019-01-20] MEDS ORDERED: Sodium Chloride 0.9% 10 ML Syringe FLUSH PRN ×2 (15:18→17:01)
--- NOTE | 2019-01-20 15:21 | EDM.PDOC ---
ED HPI GENERAL MEDICAL PROBLEM - General Chief Complaint: General Stated Complaint: DIZZINESS;HEADACHE Time Seen by Provider: 01/20/19 15:20 Source of Information: Reports: Patient, Family History Limitations: Reports: No Limitations - History of Present Illness INITIAL COMMENTS - FREE TEXT/NARRATIVE: 78 YO WF presents to ER complaining of dizziness, headache and body aches which began 3 days ago. Pt denies any fever/chills, no nausea/vomiting, no chest pain or shortness of breath. Pt reports she was recently having episodes of elevated blood pressure and was instructed to take an additional bystolic 10mg in the am. Pts current blood pressure is 150/70, HR-80's. Pt resting comfortably on exam. Pt is alert and oriented x 4 without slurred speech, facial droop, no ataxia. - Related Data Allergies Allergy/AdvReac Type Severity Reaction Status Date / Time feathers Allergy Other Verified 01/20/19 15:44 formaldehyde Allergy Other Verified 01/20/19 15:44 gluten Allergy Other Verified 01/20/19 15:44 lactose Allergy Diarrhea Verified 01/20/19 15:44 pollen extracts Allergy Other Verified 01/20/19 15:44 Sulfa (Sulfonamide Allergy Other Verified 01/20/19 15:44 Antibiotics) bleach Allergy Unknown Other Uncoded 07/03/18 16:38 green letuce Allergy Diarrhea Uncoded 07/03/18 16:38 Home Meds: Home Meds Vitamin B Complex 1 each PO DAILY 07/17/15 [History] Levothyroxine Sodium [Synthroid] 25 mcg PO ACBREAKFAST 06/16/17 [History] Nebivolol [Bystolic] 10 mg PO DAILY 06/16/17 [History] traZODone HCl [Trazodone HCl] 100 mg PO BEDTIME 11/10/17 [History] ALPRAZolam [Alprazolam] 0.25 mg PO BID PRN 01/19/18 [History] Escitalopram [Lexapro] 20 mg PO DAILY 01/19/18 [History] busPIRone [Buspar] 10 mg PO BID 01/19/18 [History] ARIPiprazole [Aripiprazole] 10 mg PO DAILY 06/15/18 [History] Sodium Chloride 1 gm PO BEDTIME 06/15/18 [History] Lisinopril 20 mg PO BEDTIME 01/20/19 [History] Past Medical History HEENT History: Reports: Impaired Vision Cardiovascular History: Reports: High Cholesterol, Hypertension Gastrointestinal History: Reports: Chronic Diarrhea, GERD Genitourinary History: Reports: Urinary Incontinence [employer] History: Reports: Neurological History: Reports: TIA Other Neuro History: [place] 2014 Psychiatric History: Reports: Anxiety, Depression, Panic Attack Endocrine/Metabolic History: Reports: Hyperthyroidism, Hypothyroidism, Other ( See Below) Other Endocrine/Metabolic History: Pt can not recall if she has hyper or hypo thyroidism; but she takes synthroid Hematologic History: Reports: Blood Transfusion(s) Oncologic (Cancer) History: Reports: Basal Cell Carcinoma Dermatologic History: Reports: Other (See Below) Other Dermatologic History: Basal cell CA - Infectious Disease History Infectious Disease History: Reports: Chicken Pox, Measles, Mumps - Past Surgical History Head Surgeries/Procedures: Reports: None Female Surgical History: Reports: D&C, Hysterectomy, Other (See Below) Other Female Surgeries/Procedures: Bladder surgery, sling. Musculoskeletal Surgical History: Reports: Shoulder Replacement Social & Family History - Family History Family Medical History: Noncontributory - Caffeine Use Caffeine Use: Reports: Coffee, Soda, Tea - Living Situation & Occupation Living situation: Reports: ED ROS GENERAL - Review of Systems Review Of Systems: See Below Constitutional: Reports: No Symptoms HEENT: Reports: No Symptoms Respiratory: Reports: No Symptoms Cardiovascular: Reports: Lightheadedness Endocrine: Reports: No Symptoms GI/Abdominal: Reports: No Symptoms : Reports: No Symptoms Musculoskeletal: Reports: No Symptoms Skin: Reports: No Symptoms Neurological: Reports: Dizziness, Headache Psychiatric: Reports: No Symptoms Hematologic/Lymphatic: Reports: No Symptoms Immunologic: Reports: No Symptoms ED EXAM, DIZZINESS - Physical Exam Exam: See Below Exam Limited By: No Limitations General Appearance: Alert, WD/WN, No Apparent Distress Eye Exam: Bilateral Eye: EOMI, PERRL Throat/Mouth: Normal Inspection, Normal Lips, Normal Teeth, Normal Gums, Normal Oropharynx, Normal Voice, No Airway Compromise Head Exam: Atraumatic, Normocephalic Neck: Normal Inspection, Supple, Non-Tender, Full Range of Motion Respiratory/Chest: No Respiratory Distress, Lungs Clear, Normal Breath Sounds, No Accessory Muscle Use, Chest Non-Tender Cardiovascular: Normal Peripheral Pulses, Regular Rate, Rhythm, No Edema, No Gallop, No JVD, No Murmur, No Rub GI/Abdominal: Normal Bowel Sounds, Soft, Non-Tender, No Organomegaly, No Distention, No Abnormal Bruit, No Mass Neurological: Alert, Normal Mood/Affect, Normal Dorsiflexion, CN II-XII Intact, Normal Plantar Flexion, Normal Gait, Normal Reflexes, No Motor/Sensory Deficits , Oriented x 3 Back Exam: Normal Inspection, Full Range of Motion, NT Extremities: Normal Inspection, Normal Range of Motion, Non-Tender, No Pedal Edema, Normal Capillary Refill Psychiatric: Normal Affect, Normal Mood Skin Exam: Warm, Dry, Intact, Normal Color, No Rash EKG INTERPRETATION EKG Date: 01/20/19 Time: 15:31 Rhythm: NSR Rate (Beats/Min): 89 Fowler: Normal P-Wave: Present QRS: Normal ST-T: Normal QT: Normal Comparison: No Change Course - Vital Signs Last Recorded V/S: Last Vital Signs Temp 37.0 C 01/20/19 15:25 Pulse 83 01/20/19 15:50 Resp 16 01/20/19 15:25 BP 131/67 01/20/19 15:50 Pulse Ox 97 01/20/19 15:25 Orthostatic Blood Pressure [ 147/65 Standing] Orthostatic Blood Pressure [ 154/77 Sitting] Orthostatic Blood Pressure [ 143/64 Supine] - Orders/Labs/Meds Orders: Active Orders 24 hr Category Date Time Status EKG Documentation Completion [RC] ASDIRECTED Care 01/20/19 15:18 Active Orthostatic Vital Signs [RC] ASDIRECTED Care 01/20/19 16:38 Ordered Peripheral IV Care [RC] . DIRECTED Care 01/20/19 15:18 Active Sodium Chloride 0.9% [Saline Flush] Med 01/20/19 15:18 Active 10 ml FLUSH Q8HR PRN Peripheral IV Insertion Adult [OM.PC] Routine Oth 01/20/19 15:18 Ordered EKG 12 Lead [EK] Routine Ther 01/20/19 15:18 Ordered Medication Orders Sodium Chloride (Saline Flush) 10 ml FLUSH Q8HR PRN PRN Reason: keep vein open Last Admin: 01/20/19 16:55 Dose: 10 ml Labs: Laboratory Tests 01/20/19 01/20/19 01/20/19 Range/Units 15:35 15:35 16:15 WBC 6.65 (5.00-10.00) 10^3/uL RBC 3.83 (3.80-5.50) 10^6/uL Hgb 11.7 L (12.0-16.0) g/dL Hct 35.3 L (37.0-47.0) % MCV 92.2 H D (82.0-92.0) fL MCH 30.5 (27.0-31.0) pg MCHC 33.1 (32.0-36.0) g/dL RDW 14.3 (11.5-14.5) % Plt Count 207 (150-400) 10^3/uL MPV 10.6 H (7.4-10.4) fL Immature Gran % (Auto) 0.2 (0.0-5.0) % Neut % (Auto) 63.5 (50.0-70.0) % Lymph % (Auto) 20.8 (20.0-40.0) % [place] % (Auto) 11.4 H (2.0-8.0) % Eos % (Auto) 3.6 H (1.0-3.0) % Baso % (Auto) 0.5 (0.0-1.0) % Immature Gran # (Auto) 0.01 (0.00-0.50) 10^3/uL Neut # (Auto) 4.23 (2.50-7.00) 10^3/uL Lymph # (Auto) 1.38 (1.00-4.00) 10^3/uL [place] # (Auto) 0.76 (0.10-0.80) 10^3/uL Eos # (Auto) 0.24 (0.10-0.30) 10^3/uL Baso # (Auto) 0.03 (0.00-0.10) 10^3/uL Sodium 143 (136-145) mmol/L Potassium 4.1 (3.3-5.3) mmol/L Chloride 102 (98-115) mmol/L Carbon Dioxide 27.6 (21.0-32.0) mmol/L Anion Gap 17.5 H (5-15) mmol/L BUN 12 (6-25) mg/dL Creatinine 0.91 (0.51-1.17) mg/dL Est Cr Clr Drug Dosing TNP Estimated GFR (MDRD) 60 mL/min Glucose 90 (75 - 99) mg/dL Calcium 8.7 (8.7-10.3) mg/dL Total Bilirubin 0.3 (0.2-1.0) mg/dL AST 16 (15-37) U/L ALT 19 (12-78) U/L Alkaline Phosphatase 65 (46-116) IU/L Creatine Kinase 119 (26-276) U/L CK-MB (CK-2) 1.10 (0.00-4.30) ng/mL Troponin I 0.09 H* (0.00-0.070) ng/mL Total Protein 6.7 (6.4-8.2) g/dL Albumin 3.69 (3.00-4.80) g/dL Specimen Type Urine Color (YELLOW) Urine Appearance (CLEAR) Urine pH (5.0-9.0) Ur Specific [place] (1.005-1.030) Urine Protein (NEGATIVE) mg/dL Urine Glucose (UA) (NEGATIVE) mg/dL Urine Ketones (NEGATIVE) mg/dL Urine Occult Blood (NEGATIVE) Urine Nitrite (NEGATIVE) Urine Bilirubin (NEGATIVE) Urine Urobilinogen (0.2-1.0) E.U./dL Ur Leukocyte Esterase (NEGATIVE) Urine RBC (0-5) /HPF Urine WBC (0-5) /HPF Ur Epithelial Cells /LPF Urine Bacteria (NONE TO FEW) /HPF Ethyl Alcohol < 3 (NONE DETECTED) mg/dL 01/20/19 Range/Units 16:30 WBC (5.00-10.00) 10^3/uL RBC (3.80-5.50) 10^6/uL Hgb (12.0-16.0) g/dL Hct (37.0-47.0) % MCV (82.0-92.0) fL MCH (27.0-31.0) pg MCHC (32.0-36.0) g/dL RDW (11.5-14.5) % Plt Count (150-400) 10^3/uL MPV (7.4-10.4) fL Immature Gran % (Auto) (0.0-5.0) % Neut % (Auto) (50.0-70.0) % Lymph % (Auto) (20.0-40.0) % [place] % (Auto) (2.0-8.0) % Eos % (Auto) (1.0-3.0) % Baso % (Auto) (0.0-1.0) % Immature Gran # (Auto) (0.00-0.50) 10^3/uL Neut # (Auto) (2.50-7.00) 10^3/uL Lymph # (Auto) (1.00-4.00) 10^3/uL [place] # (Auto) (0.10-0.80) 10^3/uL Eos # (Auto) (0.10-0.30) 10^3/uL Baso # (Auto) (0.00-0.10) 10^3/uL Sodium (136-145) mmol/L Potassium (3.3-5.3) mmol/L Chloride (98-115) mmol/L Carbon Dioxide (21.0-32.0) mmol/L Anion Gap (5-15) mmol/L BUN (6-25) mg/dL Creatinine (0.51-1.17) mg/dL Est Cr Clr Drug Dosing Estimated GFR (MDRD) mL/min Glucose (75 - 99) mg/dL Calcium (8.7-10.3) mg/dL Total Bilirubin (0.2-1.0) mg/dL AST (15-37) U/L ALT (12-78) U/L Alkaline Phosphatase (46-116) IU/L Creatine Kinase (26-276) U/L CK-MB (CK-2) (0.00-4.30) ng/mL Troponin I (0.00-0.070) ng/mL Total Protein (6.4-8.2) g/dL Albumin (3.00-4.80) g/dL Specimen Type Urinvoid Urine Color Light yellow (YELLOW) Urine Appearance Clear (CLEAR) Urine pH 5.5 (5.0-9.0) Ur Specific [place] 1.010 (1.005-1.030) Urine Protein Negative (NEGATIVE) mg/dL Urine Glucose (UA) Negative (NEGATIVE) mg/dL Urine Ketones Negative (NEGATIVE) mg/dL Urine Occult Blood Trace-lysed H (NEGATIVE) Urine Nitrite Negative (NEGATIVE) Urine Bilirubin Negative (NEGATIVE) Urine Urobilinogen 0.2 (0.2-1.0) E.U./dL Ur Leukocyte Esterase Negative (NEGATIVE) Urine RBC 0-5 (0-5) /HPF Urine WBC 0-5 (0-5) /HPF Ur Epithelial Cells Moderate H /LPF Urine Bacteria Occasional (NONE TO FEW) /HPF Ethyl Alcohol (NONE DETECTED) mg/dL Meds: Medications Generic Name Dose Route Start Last Admin Trade Name Freq PRN Reason Stop Dose Admin Sodium Chloride 10 ml 01/20/19 15:18 01/20/19 16:55 Saline Flush FLUSH 10 ml Q8HR PRN Administration keep vein open Discontinued Medications Generic Name Dose Route Start Last Admin Trade Name Freq PRN Reason Stop Dose Admin Ketorolac Tromethamine 30 mg 01/20/19 16:38 01/20/19 16:55 Toradol IM 01/20/19 16:39 30 mg ONETIME ONE Administration - Radiology Interpretation Free Text/Narrative:: CXR- NAD CT Brain- NAD - Re-Assessments/Exams Free Text/Narrative Re-Assessment/Exam: 01/20/19 16:48 orthostatic vitals- neg Departure - Departure Time of Disposition: 17:00 Disposition: Refer to Observation Condition: Good Clinical Impression: Dizziness, Elevated troponin I level - Discharge Information Referrals: Heydi Villalba MD [Primary Care Provider] - Forms: ED Department Discharge - My Orders Last 24 Hours: My Active Orders 01/20/19 15:18 EKG Documentation Completion [RC] ASDIRECTED Peripheral IV Care [RC] . DIRECTED Sodium Chloride 0.9% [Saline Flush] 10 ml FLUSH Q8HR PRN Peripheral IV Insertion Adult [OM.PC] Routine EKG 12 Lead [EK] Routine 01/20/19 16:38 Orthostatic Vital Signs [RC] ASDIRECTED - Assessment/Plan Last 24 Hours: My Active Orders 01/20/19 15:18 EKG Documentation Completion [RC] ASDIRECTED Peripheral IV Care [RC] . DIRECTED Sodium Chloride 0.9% [Saline Flush] 10 ml FLUSH Q8HR PRN Peripheral IV Insertion Adult [OM.PC] Routine EKG 12 Lead [EK] Routine 01/20/19 16:38 Orthostatic Vital Signs [RC] ASDIRECTED Assessment:: 1. Dizziness 2. elevated trop I Plan: 1. admit to obs- Dr Valero 2. nitro/ASA 3. supportive care 4. trop I Q6 x 3
--- NOTE | 2019-01-20 16:23 | CT ---
[id number] CT/CT Head WO IV EXAM: CT Head WO IV CLINICAL DATA: DIZZINESS COMPARISON: CORRELATION IS MADE WITH THE EXAM OF MAY 11, 2018. FINDINGS: There is no mass or mass effect. There is no hemorrhage or hydrocephalus. There are no extra-axial fluid collections. There are no sites of abnormal attenuation. IMPRESSION: NO PLAIN CT EVIDENCE OF ACUTE INTRACRANIAL PROCESS. Vikram Mix MD 01/20/19 [id number] Thank you for allowing us to participate in the care of your patient.
--- NOTE | 2019-01-20 16:23 | CR ---
[id number] RAD/RAD Chest PA And Lateral EXAM: RAD Chest PA And Lateral CLINICAL DATA: DIZZINESS COMPARISON: CORRELATION IS MADE WITH THE EXAM OF JUNE 03, 2018. FINDINGS: The lungs are clear. A left shoulder prosthesis is seen. The cardiomediastinal contour is prominent but stable. The regional bones and soft tissues are unremarkable. IMPRESSION: NO ACUTE PROCESS. Vikram Mix MD 01/20/19 [id number] Thank you for allowing us to participate in the care of your patient.
[2019-01-20] MEDS ORDERED: Ketorolac 30 MG/ML SDV IM ONE (16:38)
[2019-01-20 16:46] LABS: ANION GAP 17.5 mmol/L (5-15); CHLORIDE,CL 102 mmol/L (98-115); SODIUM,NA 143 mmol/L (136-145)
[2019-01-20] MEDS ORDERED: Morphine 2 MG/ML Syringe IVPUSH PRN (17:01)
[2019-01-20] MEDS ORDERED: Ondansetron 4 MG/2 ML SDV IV PRN (17:01)
[2019-01-20] MEDS ORDERED: ALPRAZolam 0.25 MG Tab PO PRN (20:07)
[2019-01-20] MEDS: Nitroglycerin 2% Oint 1 GM UD Packet TOP SCH ×2 (20:15→23:54)
[2019-01-20] MEDS: Aspirin 325 MG Tab.EC PO SCH (20:16)
[2019-01-20] MEDS ORDERED: Calcium Carbonate 500 MG Tab.Chew PO PRN (20:39)
[2019-01-20] MEDS ORDERED: Sodium Chloride 1 GM Tab PO SCH (21:00)
[2019-01-20] MEDS ORDERED: traZODone 50 MG Tab PO SCH (21:00)
[2019-01-20] MEDS ORDERED: Lisinopril 20 MG Tab PO SCH (21:00)
[2019-01-20] MEDS: busPIRone 10 MG Tab PO SCH (21:18)
[2019-01-21] MEDS: Nitroglycerin 2% Oint 1 GM UD Packet TOP SCH (05:21)
[2019-01-21] MEDS ORDERED: Acetaminophen 325 MG Tab PO PRN (05:30)
[2019-01-21] MEDS ORDERED: Levothyroxine 25 MCG Tab PO SCH (07:30)
[2019-01-21 08:11] LABS: ANION GAP 11.1 mmol/L (5-15); CHLORIDE,CL 104 mmol/L (98-115); SODIUM,NA 140 mmol/L (136-145)
[2019-01-21] MEDS: Aspirin 325 MG Tab.EC PO SCH (08:30)
[2019-01-21] MEDS: busPIRone 10 MG Tab PO SCH (08:30)
[2019-01-21 08:32] VITALS: BP 129/67
--- NOTE | 2019-01-21 08:52 | PCM.DCSUM1 ---
Discharge Summary - Hospital Course Free Text/Narrative:: Sharon is being discharged from an overnight observation stay for symptomatic high blood pressure with an initial troponin elevation of 0.09. Reportedly over the weekend (today is Saturday) she contacted the hospital due to elevated BP readings at home of 180's systolic with 80's diastolic. She had a GOMES, some dizziness and lightheadedness. She was instructed to go up on her Bystolic from 10 mg PO daily to 20 mg PO daily and follow-up in the clinic. Her daughter, Amber, contacted the clinic on Saturday asking what further to do and it was recommended that Tahira come in for an appointment and so one was scheduled for later in the week. Yesterday (Saturday) Amber again contacted the clinic with an elevated BP of 183/83 with persistent GOMES and dizziness. I recommended she come to the ER for evaluation. Upon arrival in the ER her BP was 151/70. She as given mediation for a headache and had labs drawn, the only thing noted was a troponin of 0.09 but EKG was normal and she had no CP or SOB. She was continued on her regular home medications and her BP has normalized without any intervention and she states her GOMES is much better, "just a twinge". She does state she had been eating a lot of saltine crackers over the weekend and wonders if that contributed to her HBP. She denies any increase in her anxiety level. Repeat troponin x 2 was 0.04. She will be discharged to home on her current meds at their current doses, the exception being returning to 10 mg PO daily of the Bystolic. She has ordered a home BP cuff to check her BP rather than using the assisted living facilities cuff. Follow-up in clinic in 1 week (keep scheduled appointment). Discharge diagnoses: Elevated blood pressure (resolved) Headache (resolved) Dizziness (resolved) Secondary diagnoses: Anxiety Depression SIADH Loving's Esophagus Acid Reflux Diagnosis: Stroke: No Modified [place] Scale: No Symptoms at All Modified Jennifer Scale Score: 0 - Discharge Data Discharge Date: 01/21/19 Discharge Disposition: Home, Self-Care 01 Condition: Good - Discharge Diagnosis/Problem(s) (1) Hypertension SNOMED Code(s): 65251096 ICD Code: I10 - ESSENTIAL (PRIMARY) HYPERTENSION Status: Acute Current Visit: Yes (2) Dizziness SNOMED Code(s): 110426223, 605656636 ICD Code: R42 - DIZZINESS AND GIDDINESS Status: Acute Current Visit: Yes (3) Elevated troponin I level SNOMED Code(s): 730765753 ICD Code: R74.8 - ABNORMAL LEVELS OF OTHER SERUM ENZYMES Status: Acute Current Visit: Yes - Patient Instructions Diet: Usual Diet as Tolerated Activity: As Tolerated - Discharge Plan *PRESCRIPTION DRUG MONITORING PROGRAM REVIEWED*: Not Applicable *COPY OF PRESCRIPTION DRUG MONITORING REPORT IN PATIENT JOSSE: Not Applicable Home Medications: Home Meds Vitamin B Complex 1 each PO DAILY 07/17/15 [History] Levothyroxine Sodium [Synthroid] 25 mcg PO ACBREAKFAST 06/16/17 [History] Nebivolol [Bystolic] 10 mg PO DAILY 06/16/17 [History] traZODone HCl [Trazodone HCl] 100 mg PO BEDTIME 11/10/17 [History] ALPRAZolam [Alprazolam] 0.25 mg PO BID PRN 01/19/18 [History] Escitalopram [Lexapro] 20 mg PO DAILY 01/19/18 [History] busPIRone [Buspar] 10 mg PO BID 01/19/18 [History] ARIPiprazole [Aripiprazole] 10 mg PO DAILY 06/15/18 [History] Sodium Chloride 1 gm PO BEDTIME 06/15/18 [History] Lisinopril 20 mg PO BEDTIME 01/20/19 [History] Forms: ED Department Discharge Referrals: Heydi Villalba MD [Primary Care Provider] - - Discharge Summary/Plan Comment DC Time >30 min.: No - General Info Date of Service: 01/21/19 Admission Dx/Problem (Free Text: HTN, elevated troponin. - Patient Data Vitals - Most Recent: Last Vital Signs Temp 98.3 F 01/21/19 06:09 Pulse 63 01/21/19 08:30 Resp 16 01/21/19 06:09 BP 129/67 01/21/19 08:30 Pulse Ox 94 L 01/21/19 06:09 Orthostatic Blood Pressure [ 147/65 Standing] Orthostatic Blood Pressure [ 154/77 Sitting] Orthostatic Blood Pressure [ 143/64 Supine] Weight - Most Recent: 180 lb 11.2 oz I&O - Last 24 hours: Intake & Output 01/20/19 01/21/19 01/21/19 22:59 06:59 14:59 Intake Total 400 200 Balance 400 200 Lab Results - Last 24 hrs: Laboratory Results - last 24 hr 01/20/19 01/20/19 01/20/19 Range/Units 15:35 15:35 16:15 WBC 6.65 (5.00-10.00) 10^3/uL RBC 3.83 (3.80-5.50) 10^6/uL Hgb 11.7 L (12.0-16.0) g/dL Hct 35.3 L (37.0-47.0) % MCV 92.2 H D (82.0-92.0) fL MCH 30.5 (27.0-31.0) pg MCHC 33.1 (32.0-36.0) g/dL RDW 14.3 (11.5-14.5) % Plt Count 207 (150-400) 10^3/uL MPV 10.6 H (7.4-10.4) fL Immature Gran % (Auto) 0.2 (0.0-5.0) % Neut % (Auto) 63.5 (50.0-70.0) % Lymph % (Auto) 20.8 (20.0-40.0) % [place] % (Auto) 11.4 H (2.0-8.0) % Eos % (Auto) 3.6 H (1.0-3.0) % Baso % (Auto) 0.5 (0.0-1.0) % Immature Gran # (Auto) 0.01 (0.00-0.50) 10^3/uL Neut # (Auto) 4.23 (2.50-7.00) 10^3/uL Lymph # (Auto) 1.38 (1.00-4.00) 10^3/uL [place] # (Auto) 0.76 (0.10-0.80) 10^3/uL Eos # (Auto) 0.24 (0.10-0.30) 10^3/uL Baso # (Auto) 0.03 (0.00-0.10) 10^3/uL Sodium 143 (136-145) mmol/L Potassium 4.1 (3.3-5.3) mmol/L Chloride 102 (98-115) mmol/L Carbon Dioxide 27.6 (21.0-32.0) mmol/L Anion Gap 17.5 H (5-15) mmol/L BUN 12 (6-25) mg/dL Creatinine 0.91 (0.51-1.17) mg/dL Est Cr Clr Drug Dosing TNP Estimated GFR (MDRD) 60 mL/min Glucose 90 (75 - 99) mg/dL Calcium 8.7 (8.7-10.3) mg/dL Total Bilirubin 0.3 (0.2-1.0) mg/dL AST 16 (15-37) U/L ALT 19 (12-78) U/L Alkaline Phosphatase 65 (46-116) IU/L Creatine Kinase 119 (26-276) U/L CK-MB (CK-2) 1.10 (0.00-4.30) ng/mL Troponin I 0.09 H* (0.00-0.070) ng/mL Total Protein 6.7 (6.4-8.2) g/dL Albumin 3.69 (3.00-4.80) g/dL Specimen Type Urine Color (YELLOW) Urine Appearance (CLEAR) Urine pH (5.0-9.0) Ur Specific [place] (1.005-1.030) Urine Protein (NEGATIVE) mg/dL Urine Glucose (UA) (NEGATIVE) mg/dL Urine Ketones (NEGATIVE) mg/dL Urine Occult Blood (NEGATIVE) Urine Nitrite (NEGATIVE) Urine Bilirubin (NEGATIVE) Urine Urobilinogen (0.2-1.0) E.U./dL Ur Leukocyte Esterase (NEGATIVE) Urine RBC (0-5) /HPF Urine WBC (0-5) /HPF Ur Epithelial Cells /LPF Urine Bacteria (NONE TO FEW) /HPF Ethyl Alcohol < 3 (NONE DETECTED) mg/dL 01/20/19 01/20/19 01/21/19 Range/Units 16:30 20:35 07:33 WBC 6.32 (5.00-10.00) 10^3/uL RBC 3.44 L (3.80-5.50) 10^6/uL Hgb 10.5 L (12.0-16.0) g/dL Hct 31.7 L (37.0-47.0) % MCV 92.2 H (82.0-92.0) fL MCH 30.5 (27.0-31.0) pg MCHC 33.1 (32.0-36.0) g/dL RDW 14.0 (11.5-14.5) % Plt Count 215 (150-400) 10^3/uL MPV 9.3 (7.4-10.4) fL Immature Gran % (Auto) 0.2 (0.0-5.0) % Neut % (Auto) 61.8 (50.0-70.0) % Lymph % (Auto) 22.0 (20.0-40.0) % [place] % (Auto) 11.1 H (2.0-8.0) % Eos % (Auto) 4.4 H (1.0-3.0) % Baso % (Auto) 0.5 (0.0-1.0) % Immature Gran # (Auto) 0.01 (0.00-0.50) 10^3/uL Neut # (Auto) 3.91 (2.50-7.00) 10^3/uL Lymph # (Auto) 1.39 (1.00-4.00) 10^3/uL [place] # (Auto) 0.70 (0.10-0.80) 10^3/uL Eos # (Auto) 0.28 (0.10-0.30) 10^3/uL Baso # (Auto) 0.03 (0.00-0.10) 10^3/uL Sodium (136-145) mmol/L Potassium (3.3-5.3) mmol/L Chloride (98-115) mmol/L Carbon Dioxide (21.0-32.0) mmol/L Anion Gap (5-15) mmol/L BUN (6-25) mg/dL Creatinine (0.51-1.17) mg/dL Est Cr Clr Drug Dosing Estimated GFR (MDRD) mL/min Glucose (75 - 99) mg/dL Calcium (8.7-10.3) mg/dL Total Bilirubin (0.2-1.0) mg/dL AST (15-37) U/L ALT (12-78) U/L Alkaline Phosphatase (46-116) IU/L Creatine Kinase (26-276) U/L CK-MB (CK-2) (0.00-4.30) ng/mL Troponin I 0.04 (0.00-0.070) ng/mL Total Protein (6.4-8.2) g/dL Albumin (3.00-4.80) g/dL Specimen Type Urinvoid Urine Color Light yellow (YELLOW) Urine Appearance Clear (CLEAR) Urine pH 5.5 (5.0-9.0) Ur Specific [place] 1.010 (1.005-1.030) Urine Protein Negative (NEGATIVE) mg/dL Urine Glucose (UA) Negative (NEGATIVE) mg/dL Urine Ketones Negative (NEGATIVE) mg/dL Urine Occult Blood Trace-lysed H (NEGATIVE) Urine Nitrite Negative (NEGATIVE) Urine Bilirubin Negative (NEGATIVE) Urine Urobilinogen 0.2 (0.2-1.0) E.U./dL Ur Leukocyte Esterase Negative (NEGATIVE) Urine RBC 0-5 (0-5) /HPF Urine WBC 0-5 (0-5) /HPF Ur Epithelial Cells Moderate H /LPF Urine Bacteria Occasional (NONE TO FEW) /HPF Ethyl Alcohol (NONE DETECTED) mg/dL 01/21/19 Range/Units 07:33 WBC (5.00-10.00) 10^3/uL RBC (3.80-5.50) 10^6/uL Hgb (12.0-16.0) g/dL Hct (37.0-47.0) % MCV (82.0-92.0) fL MCH (27.0-31.0) pg MCHC (32.0-36.0) g/dL RDW (11.5-14.5) % Plt Count (150-400) 10^3/uL MPV (7.4-10.4) fL Immature Gran % (Auto) (0.0-5.0) % Neut % (Auto) (50.0-70.0) % Lymph % (Auto) (20.0-40.0) % [place] % (Auto) (2.0-8.0) % Eos % (Auto) (1.0-3.0) % Baso % (Auto) (0.0-1.0) % Immature Gran # (Auto) (0.00-0.50) 10^3/uL Neut # (Auto) (2.50-7.00) 10^3/uL Lymph # (Auto) (1.00-4.00) 10^3/uL [place] # (Auto) (0.10-0.80) 10^3/uL Eos # (Auto) (0.10-0.30) 10^3/uL Baso # (Auto) (0.00-0.10) 10^3/uL Sodium 140 (136-145) mmol/L Potassium 3.9 (3.3-5.3) mmol/L Chloride 104 (98-115) mmol/L Carbon Dioxide 28.8 (21.0-32.0) mmol/L Anion Gap 11.1 (5-15) mmol/L BUN 14 (6-25) mg/dL Creatinine 0.90 (0.51-1.17) mg/dL Est Cr Clr Drug Dosing 46.36 Estimated GFR (MDRD) > 60 mL/min Glucose 95 (75 - 99) mg/dL Calcium 8.6 L (8.7-10.3) mg/dL Total Bilirubin (0.2-1.0) mg/dL AST (15-37) U/L ALT (12-78) U/L Alkaline Phosphatase (46-116) IU/L Creatine Kinase (26-276) U/L CK-MB (CK-2) (0.00-4.30) ng/mL Troponin I 0.04 (0.00-0.070) ng/mL Total Protein (6.4-8.2) g/dL Albumin (3.00-4.80) g/dL Specimen Type Urine Color (YELLOW) Urine Appearance (CLEAR) Urine pH (5.0-9.0) Ur Specific [place] (1.005-1.030) Urine Protein (NEGATIVE) mg/dL Urine Glucose (UA) (NEGATIVE) mg/dL Urine Ketones (NEGATIVE) mg/dL Urine Occult Blood (NEGATIVE) Urine Nitrite (NEGATIVE) Urine Bilirubin (NEGATIVE) Urine Urobilinogen (0.2-1.0) E.U./dL Ur Leukocyte Esterase (NEGATIVE) Urine RBC (0-5) /HPF Urine WBC (0-5) /HPF Ur Epithelial Cells /LPF Urine Bacteria (NONE TO FEW) /HPF Ethyl Alcohol (NONE DETECTED) mg/dL Med Orders - Current: Current Medications Acetaminophen (Tylenol) 650 mg PO Q4H PRN PRN Reason: Pain Last Admin: 01/21/19 05:46 Dose: 650 mg Alprazolam (Xanax) 0.25 mg PO BID PRN PRN Reason: Anxiety Aripiprazole (Abilify) 10 mg PO DAILY [facility] Last Admin: 01/21/19 08:32 Dose: 10 mg Aspirin (Ecotrin) 325 mg PO DAILY [facility] Last Admin: 01/21/19 08:30 Dose: 325 mg Buspirone HCl (Buspar) 10 mg PO BID [facility] Last Admin: 01/21/19 08:30 Dose: 10 mg Calcium Carbonate/Glycine (Tums) 500 mg PO Q4H PRN PRN Reason: Indigestion Last Admin: 01/20/19 21:15 Dose: 500 mg Escitalopram Oxalate (Lexapro) 20 mg PO DAILY [facility] Last Admin: 01/21/19 08:30 Dose: 20 mg Levothyroxine Sodium (Levothyroxine) 25 mcg PO ACBREAKFAST [facility] Last Admin: 01/21/19 08:30 Dose: 25 mcg Lisinopril (Prinivil) 20 mg PO BEDTIME [facility] Last Admin: 01/20/19 21:15 Dose: 20 mg Morphine Sulfate (Morphine) 2 mg IVPUSH Q2H PRN PRN Reason: Pain (severe 7-10) Nebivolol (Bystolic) 10 mg PO DAILY [facility] Last Admin: 01/21/19 08:30 Dose: 10 mg Nitroglycerin (Nitro-Bid 2%) 1 gm TOP Q6H [facility] Last Admin: 01/21/19 05:21 Dose: 1 gm Ondansetron HCl (Zofran) 4 mg IV Q6H PRN PRN Reason: Nausea/Vomiting Sodium Chloride (Saline Flush) 10 ml FLUSH Q8HR PRN PRN Reason: keep vein open Last Admin: 01/21/19 08:33 Dose: 10 ml Sodium Chloride (Sodium Chloride) 1 gm PO BEDTIME [facility] Last Admin: 01/20/19 21:15 Dose: 1 gm Trazodone HCl (Trazodone) 100 mg PO BEDTIME [facility] Last Admin: 01/20/19 21:18 Dose: 100 mg Vitamin B Complex (Vitamin B Complex) 1 each PO DAILY [facility] Last Admin: 01/21/19 08:30 Dose: 1 each Discontinued Medications Ketorolac Tromethamine (Toradol) 30 mg IM ONETIME ONE Stop: 01/20/19 16:39 Last Admin: 01/20/19 16:55 Dose: 30 mg Sodium Chloride (Saline Flush) 10 ml FLUSH Q8HR PRN PRN Reason: keep vein open Last Admin: 01/20/19 16:55 Dose: 10 ml - Exam General: Reports: Alert, Oriented, Cooperative, No Acute Distress Lungs: Reports: Clear to Auscultation, Normal Respiratory Effort Cardiovascular: Reports: Regular Rate, Regular Rhythm, No Murmurs GI/Abdominal Exam: Normal Bowel Sounds Extremities: Normal Inspection, No Pedal Edema Skin: Reports: Warm, Dry, Intact Psy/Mental Status: Reports: Alert, Normal Affect, Normal Mood
[2019-01-21] MEDS ORDERED: Escitalopram 10 MG Tab PO SCH (09:00)
[2019-01-21] MEDS ORDERED: ARIPiprazole 5 MG Tab PO SCH (09:00)
[2019-01-21] MEDS ORDERED: Vitamin B Complex Tab PO SCH (09:00)
== END 2019-01-21 09:35 | disposition home or self-care (01) ==
LOC: KA.ED 15:12 → KA.MS 17:00
PROVIDERS: ADMIT Physician Assistant Medical; ATTEND Internal Medicine
DX: I10 Essential (primary) hypertension (principal); E22.2 Syndrome of inappropriate secretion of antidiuretic hormone; F41.9 Anxiety disorder, unspecified; F32.9 Major depressive disorder, single episode, unspecified; K22.70 Barrett's esophagus without dysplasia; K21.9 Gastro-esophageal reflux disease without esophagitis; R74.8 Abnormal levels of other serum enzymes; E78.00 Pure hypercholesterolemia, unspecified; K59.09 Other constipation; Z79.899 Other long term (current) drug therapy; Z88.2 Allergy status to sulfonamides; Z91.011 Allergy to milk products; Z91.048 Other nonmedicinal substance allergy status; Z91.018 Allergy to other foods
CPT/HCPCS: 36415; 70450; 71046; 80048; 80053; 81001; 82550; 82553; 84484; 85025; 93005; 96372; 99285-25; A9270-GY; G0378; G0480; J1885

== ENCOUNTER 2019-09-08 16:25 | Emergency (ER) | payer MEDICARE, OTHER ==
[2019-09-08 17:50] VITALS: BP 137/78; PULSE 87
== END 2019-09-08 17:05 | disposition left against medical advice (07) ==
LOC: KA.ED 16:25
DX: Z53.21 Procedure and treatment not carried out due to patient leaving prior to being seen by health care provider (principal)

== ENCOUNTER 2019-12-07 15:05 | Emergency (ER) | payer MEDICARE, OTHER ==
--- NOTE | 2019-12-07 15:11 | EDM.PDOC ---
ED HPI GENERAL MEDICAL PROBLEM - General Chief Complaint: Cardiovascular Problem Stated Complaint: LIGHTHEADED/HBP? Time Seen by Provider: 12/07/19 15:11 Source of Information: Reports: Patient History Limitations: Reports: No Limitations - History of Present Illness Onset: Today, Sudden Duration: Hour(s): Quality: Reports: Pressure Severity: Mild Improves with: Reports: Rest Worsens with: Reports: None Context: Reports: Activity Associated Symptoms: Reports: No Other Symptoms - Related Data Allergies Allergy/AdvReac Type Severity Reaction Status Date / Time feathers Allergy Other Verified 12/07/19 15:22 formaldehyde Allergy Other Verified 12/07/19 15:22 Sulfa (Sulfonamide Allergy Other Verified 12/07/19 15:22 Antibiotics) bleach Allergy Unknown Other Uncoded 12/07/19 15:22 green letuce Allergy Diarrhea Uncoded 12/07/19 15:22 Home Meds: Home Meds Vitamin B Complex 1 each PO DAILY 07/17/15 [History] Levothyroxine Sodium [Synthroid] 25 mcg PO ACBREAKFAST 06/16/17 [History] Nebivolol [Bystolic] 30 mg PO DAILY 06/16/17 [History] traZODone HCl [Trazodone HCl] 100 mg PO BEDTIME PRN 11/10/17 [History] ALPRAZolam [Alprazolam] 0.25 mg PO BID PRN 01/19/18 [History] Escitalopram [Lexapro] 20 mg PO DAILY 01/19/18 [History] busPIRone [Buspar] 10 mg PO DAILY 01/19/18 [History] ARIPiprazole [Aripiprazole] 5 mg PO DAILY 06/15/18 [History] Acetaminophen 500 mg PO Q6H PRN 12/07/19 [History] Losartan Potassium [Cozaar] 100 mg PO DAILY 12/07/19 [History] Tolterodine Tartrate [Tolterodine Tartrate ER] 4 mg PO DAILY 12/07/19 [History] Past Medical History HEENT History: Reports: Impaired Vision Cardiovascular History: Reports: High Cholesterol, Hypertension Respiratory History: Reports: None Gastrointestinal History: Reports: Chronic Diarrhea, GERD, Hemorrhoids Genitourinary History: Reports: Urinary Incontinence SMOKE TESTER History: Reports: Musculoskeletal History: Reports: Fracture Neurological History: Reports: TIA Other Neuro History: 2014 Psychiatric History: Reports: Anxiety, Depression, Panic Attack Endocrine/Metabolic History: Reports: Hypothyroidism Other Endocrine/Metabolic History: Pt can not recall if she has hyper or hypo thyroidism; but she takes synthroid Hematologic History: Reports: Blood Transfusion(s) Immunologic History: Reports: None Oncologic (Cancer) History: Reports: Basal Cell Carcinoma Dermatologic History: Reports: Other (See Below) Other Dermatologic History: Basal cell CA - Infectious Disease History Infectious Disease History: Reports: Chicken Pox, Measles, Mumps - Past Surgical History Head Surgeries/Procedures: Reports: None HEENT Surgical History: Reports: None Cardiovascular Surgical History: Reports: None Respiratory Surgical History: Reports: None GI Surgical History: Reports: Colonoscopy Female Surgical History: Reports: D&C, Hysterectomy, Other (See Below) Other Female Surgeries/Procedures: Bladder surgery, sling. Endocrine Surgical History: Reports: None Neurological Surgical History: Reports: None Musculoskeletal Surgical History: Reports: Shoulder Replacement Dermatological Surgical History: Reports: None Social & Family History - Family History Family Medical History: Noncontributory - Caffeine Use Caffeine Use: Reports: Coffee - Living Situation & Occupation Living situation: Reports: ED ROS GENERAL - Review of Systems Review Of Systems: See Below Constitutional: Reports: No Symptoms HEENT: Reports: No Symptoms Respiratory: Reports: No Symptoms Cardiovascular: Reports: No Symptoms Endocrine: Reports: No Symptoms GI/Abdominal: Reports: No Symptoms : Reports: No Symptoms Musculoskeletal: Reports: No Symptoms Skin: Reports: No Symptoms Neurological: Reports: No Symptoms Psychiatric: Reports: No Symptoms Hematologic/Lymphatic: Reports: No Symptoms Immunologic: Reports: No Symptoms ED EXAM, GENERAL - Physical Exam Exam: See Below Exam Limited By: No Limitations General Appearance: Alert, WD/WN, No Apparent Distress Ears: Normal External Exam, Normal Canal, Hearing Grossly Normal, Normal TMs Nose: Normal Inspection, Normal Mucosa, No Blood Throat/Mouth: Normal Inspection, Normal Lips, Normal Teeth, Normal Gums, Normal Oropharynx, Normal Voice, No Airway Compromise Head: Atraumatic, Normocephalic Neck: Normal Inspection, Supple, Non-Tender, Full Range of Motion Respiratory/Chest: No Respiratory Distress, Lungs Clear, Normal Breath Sounds, No Accessory Muscle Use, Chest Non-Tender Cardiovascular: Normal Peripheral Pulses, Regular Rate, Rhythm, No Edema, No Gallop, No JVD, No Murmur, No Rub GI/Abdominal: Normal Bowel Sounds, Soft, Non-Tender, No Organomegaly, No Distention, No Abnormal Bruit, No Mass (Female) Exam: Deferred Rectal (Female) Exam: Deferred Back Exam: Full Range of Motion Extremities: Normal Inspection, Normal Range of Motion, Non-Tender, No Pedal Edema Neurological: Alert, Oriented, CN II-XII Intact, Normal Cognition, Normal Gait, Normal Reflexes, No Motor/Sensory Deficits Psychiatric: Normal Affect, Normal Mood Skin Exam: Warm, Dry, Intact, Normal Color, No Rash Lymphatic: No Adenopathy Course - Vital Signs Last Recorded V/S: Last Vital Signs Temp 36.4 C 12/07/19 15:15 Pulse 89 12/07/19 15:15 Resp 16 12/07/19 15:15 BP 156/81 H 12/07/19 15:15 Pulse Ox 97 12/07/19 15:15 Departure - Departure Time of Disposition: 15:51 Disposition: Home, Self-Care 01 Condition: Good Clinical Impression: Anxiety, Hypertension - Discharge Information *PRESCRIPTION DRUG MONITORING PROGRAM REVIEWED*: Not Applicable *COPY OF PRESCRIPTION DRUG MONITORING REPORT IN PATIENT JOSSE: Not Applicable Referrals: Heydi Villalba MD [Primary Care Provider] - Forms: ED Department Discharge Additional Instructions: Go home and rest. Take your medications as directed. If services presents to check your blood pressure, and finds it elevated, please use your Xanax and have them return in 30 minutes to retest at that time. With the findings here showing gradual improvement since her arrival, it is most likely anxiety related elevation of your blood pressure. For repeat blood pressure was to be elevated then consideration for evaluation would be given. Anxiety can play very high factor into elevated blood pressure as people come more hypertensive as they worry about the original reading. Call or return if symptoms should recur or worsen with no improvement with your regular medication. Contact clinic and follow-up with Dr. Soliz in the next week for consideration and adjustment of anxiety medication, or your blood pressure medicine if it was shown to be elevated at that time. Sepsis Event Note - Focused Exam Vital Signs: Vital Signs Temp Pulse Resp BP BP Pulse Ox 12/07/19 15:15 36.4 C 89 16 156/81 H 151/68 H 97 Date Exam was Performed: 12/07/19 Time Exam was Performed: 15:46 - Problem List & Annotations (1) Anxiety SNOMED Code(s): 94980696 Code(s): F41.9 - ANXIETY DISORDER, UNSPECIFIED Status: Chronic Priority: Medium Current Visit: No (2) Hypertension SNOMED Code(s): 88889313 Code(s): I10 - ESSENTIAL (PRIMARY) HYPERTENSION Status: Chronic Priority : Medium Current Visit: No Qualifiers: Hypertension type: essential hypertension Qualified Code(s): I10 - Essential (primary) hypertension - Problem List Review Problem List Initiated/Reviewed/Updated: Yes - Assessment/Plan Plan: Go home and rest. Take your medications as directed. If services presents to check your blood pressure, and finds it elevated, please use your Xanax and have them return in 30 minutes to retest at that time. With the findings here showing gradual improvement since her arrival, it is most likely anxiety related elevation of your blood pressure. For repeat blood pressure was to be elevated then consideration for evaluation would be given. Anxiety can play very high factor into elevated blood pressure as people come more hypertensive as they worry about the original reading. Call or return if symptoms should recur or worsen with no improvement with your regular medication. Contact clinic and follow-up with Dr. Soliz in the next week for consideration and adjustment of anxiety medication, or your blood pressure medicine if it was shown to be elevated at that time.
[2019-12-07 15:38] VITALS: BP 156/81; PULSE 89
== END 2019-12-07 16:10 | disposition home or self-care (01) ==
LOC: KA.ED 15:05
DX: I10 Essential (primary) hypertension (principal); F41.9 Anxiety disorder, unspecified; E78.00 Pure hypercholesterolemia, unspecified; F32.9 Major depressive disorder, single episode, unspecified; E03.9 Hypothyroidism, unspecified; Z79.890 Hormone replacement therapy; Z86.73 Personal history of transient ischemic attack (TIA), and cerebral infarction without residual deficits; Z91.048 Other nonmedicinal substance allergy status; Z88.2 Allergy status to sulfonamides; Z91.018 Allergy to other foods
CPT/HCPCS: 99283; 99284

== ENCOUNTER 2020-01-11 15:29 | Emergency (ER) | payer MEDICARE, OTHER ==
--- NOTE | 2020-01-11 16:03 | EDM.PDOC ---
ED HPI GENERAL MEDICAL PROBLEM - General Chief Complaint: General Stated Complaint: HIGH BLOOD PRESSURE Time Seen by Provider: 01/11/20 15:57 Source of Information: Reports: Patient History Limitations: Reports: No Limitations - History of Present Illness INITIAL COMMENTS - FREE TEXT/NARRATIVE: Patient is a 79-year-old female who presents to the emergency department this afternoon via private vehicle for complaint of high blood pressure. Patient states that recorded blood pressure via wrist cuff at assisted living has been running 180/190 systolic and 100 diastolic for approximately 3 days. Patient is currently on bystolic and losartan for control. Patient contacted Dr. Petar Romero at the clinic today and was recommended to present to the emergency department. Patient states that she has had a minor headache but denied any chest pain or shortness of breath, nausea, vomiting, diarrhea, abdominal pain, upper respiratory symptoms, or blurry vision. Onset: Gradual Duration: Day(s): Quality: Reports: Other (No chest pain) Severity: Mild Improves with: Reports: None Worsens with: Reports: None Associated Symptoms: Reports: Headaches, Other (Anxiety). Denies: Chest Pain, Cough, cough w sputum, Diaphoresis, Fever/Chills, Nausea/Vomiting, Shortness of Breath, Syncope Head Pain Score (Numeric/FACES): 2 - Related Data Allergies Allergy/AdvReac Type Severity Reaction Status Date / Time feathers Allergy Other Verified 01/11/20 16:05 formaldehyde Allergy Other Verified 01/11/20 16:05 Sulfa (Sulfonamide Allergy Other Verified 01/11/20 16:05 Antibiotics) bleach Allergy Unknown Other Uncoded 12/07/19 15:22 green letuce Allergy Diarrhea Uncoded 12/07/19 15:22 Home Meds: Home Meds Levothyroxine Sodium [Synthroid] 25 mcg PO ACBREAKFAST 06/16/17 [History] Nebivolol [Bystolic] 30 mg PO DAILY 06/16/17 [History] traZODone HCl [Trazodone HCl] 100 mg PO BEDTIME PRN 11/10/17 [History] ALPRAZolam [Alprazolam] 0.25 mg PO BID PRN 01/19/18 [History] Escitalopram [Lexapro] 20 mg PO DAILY 01/19/18 [History] busPIRone [Buspar] 10 mg PO DAILY 01/19/18 [History] ARIPiprazole [Aripiprazole] 5 mg PO DAILY 06/15/18 [History] Acetaminophen 500 mg PO Q6H PRN 12/07/19 [History] Losartan Potassium [Cozaar] 100 mg PO DAILY 12/07/19 [History] Tolterodine Tartrate [Tolterodine Tartrate ER] 4 mg PO DAILY 12/07/19 [History] Estrogens, Conjugated [Premarin Vaginal Crm] 1 applic TOP ASDIRECTED 01/11/20 [ History] Thiamine HCl [Vitamin B-1] 100 mg PO DAILY 01/11/20 [History] Past Medical History HEENT History: Reports: Impaired Vision Cardiovascular History: Reports: High Cholesterol, Hypertension Respiratory History: Reports: None Gastrointestinal History: Reports: Chronic Diarrhea, GERD, Hemorrhoids Genitourinary History: Reports: Urinary Incontinence GLASS ARTIST History: Reports: Musculoskeletal History: Reports: Fracture Neurological History: Reports: TIA Other Neuro History: 2014 Psychiatric History: Reports: Anxiety, Depression, Panic Attack Endocrine/Metabolic History: Reports: Hypothyroidism Other Endocrine/Metabolic History: Pt can not recall if she has hyper or hypo thyroidism; but she takes synthroid Hematologic History: Reports: Blood Transfusion(s) Immunologic History: Reports: None Oncologic (Cancer) History: Reports: Basal Cell Carcinoma Dermatologic History: Reports: Other (See Below) Other Dermatologic History: Basal cell CA - Infectious Disease History Infectious Disease History: Reports: Chicken Pox, Measles, Mumps - Past Surgical History Head Surgeries/Procedures: Reports: None HEENT Surgical History: Reports: None Cardiovascular Surgical History: Reports: None Respiratory Surgical History: Reports: None GI Surgical History: Reports: Colonoscopy Female Surgical History: Reports: D&C, Hysterectomy, Other (See Below) Other Female Surgeries/Procedures: Bladder surgery, sling. Endocrine Surgical History: Reports: None Neurological Surgical History: Reports: None Musculoskeletal Surgical History: Reports: Shoulder Replacement Dermatological Surgical History: Reports: None Social & Family History - Family History Family Medical History: Noncontributory - Caffeine Use Caffeine Use: Reports: Coffee - Living Situation & Occupation Living situation: Reports: ED ROS GENERAL - Review of Systems Review Of Systems: Comprehensive ROS is negative, except as noted in HPI. Constitutional: Reports: No Symptoms HEENT: Reports: No Symptoms Respiratory: Reports: No Symptoms Cardiovascular: Reports: No Symptoms Endocrine: Reports: No Symptoms GI/Abdominal: Reports: No Symptoms : Reports: No Symptoms Musculoskeletal: Reports: No Symptoms Skin: Reports: No Symptoms Neurological: Reports: Headache. Denies: Dizziness, Numbness, Paresthesia, Pre- Existing Deficit, Seizure, Syncope, Tingling, Tremors, Trouble Speaking, Difficulty Walking, Change in Speech, Gait Disturbance Psychiatric: Reports: Anxiety Hematologic/Lymphatic: Reports: No Symptoms Immunologic: Reports: No Symptoms ED EXAM, GENERAL - Physical Exam Exam: See Below Exam Limited By: No Limitations General Appearance: Alert, WD/WN, No Apparent Distress Eye Exam: Bilateral Eye: Normal Inspection Nose: Normal Inspection, Normal Mucosa, No Blood Throat/Mouth: Normal Inspection, Normal Oropharynx, No Airway Compromise Head: Atraumatic, Normocephalic Neck: Normal Inspection, Supple, Non-Tender, Full Range of Motion Respiratory/Chest: No Respiratory Distress, Lungs Clear, Normal Breath Sounds, No Accessory Muscle Use, Chest Non-Tender Cardiovascular: Normal Peripheral Pulses, Regular Rate, Rhythm, No Murmur GI/Abdominal: Normal Bowel Sounds, Soft, Non-Tender, No Organomegaly, No Distention, No Abnormal Bruit, No Mass Back Exam: Normal Inspection. No: CVA Tenderness (L), CVA Tenderness (R) Extremities: Normal Inspection, No Pedal Edema Neurological: Alert, Oriented, CN II-XII Intact, Normal Cognition, No Motor/ Sensory Deficits Psychiatric: Normal Affect, Normal Mood Skin Exam: Warm, Dry, Intact, Normal Color, No Rash Lymphatic: No Adenopathy EKG INTERPRETATION EKG Date: 01/11/20 Time: 16:10 Rhythm: NSR Rate (Beats/Min): 83 [place]: Normal P-Wave: Present QRS: Normal ST-T: Normal QT: Prolonged Comparison: No Change Course - Vital Signs Last Recorded V/S: Last Vital Signs Temp 97.6 F 01/11/20 15:46 Pulse 65 01/11/20 16:26 Resp 22 H 01/11/20 16:26 BP 144/99 H 01/11/20 16:26 Pulse Ox 96 01/11/20 16:26 - Orders/Labs/Meds Orders: Active Orders 24 hr Category Date Time Status EKG Documentation Completion [RC] ASDIRECTED Care 01/11/20 15:50 Active EKG 12 Lead [EK] Routine Ther 01/11/20 15:49 Ordered Labs: Laboratory Tests 01/11/20 01/11/20 01/11/20 Range/Units 15:45 15:45 16:25 WBC 6.01 (5.00-10.00) 10^3/uL RBC 3.98 (3.80-5.50) 10^6/uL Hgb 11.7 L (12.0-16.0) g/dL Hct 36.5 L (37.0-47.0) % MCV 91.7 (82.0-92.0) fL MCH 29.4 (27.0-31.0) pg MCHC 32.1 (32.0-36.0) g/dL RDW 14.0 (11.5-14.5) % Plt Count 223 (150-400) 10^3/uL MPV 9.6 (7.4-10.4) fL Immature Gran % (Auto) 0.2 (0.0-5.0) % Neut % (Auto) 63.0 (50.0-70.0) % Lymph % (Auto) 24.5 (20.0-40.0) % [place] % (Auto) 8.2 H (2.0-8.0) % Eos % (Auto) 3.8 H (1.0-3.0) % Baso % (Auto) 0.3 (0.0-1.0) % Immature Gran # (Auto) 0.01 (0.00-0.50) 10^3/uL Neut # (Auto) 3.79 (2.50-7.00) 10^3/uL Lymph # (Auto) 1.47 (1.00-4.00) 10^3/uL [place] # (Auto) 0.49 (0.10-0.80) 10^3/uL Eos # (Auto) 0.23 (0.10-0.30) 10^3/uL Baso # (Auto) 0.02 (0.00-0.10) 10^3/uL Sodium 143 (136-145) mmol/L Potassium 4.1 (3.3-5.3) mmol/L Chloride 104 (98-115) mmol/L Carbon Dioxide 30.9 (21.0-32.0) mmol/L Anion Gap 12.2 (5-15) mmol/L BUN 10 (6-25) mg/dL Creatinine 0.93 (0.51-1.17) mg/dL Est Cr Clr Drug Dosing 44.14 mL/min Estimated GFR (MDRD) 58 mL/min Glucose 98 (75 - 99) mg/dL Calcium 9.4 (8.7-10.3) mg/dL Total Bilirubin 0.4 (0.2-1.0) mg/dL AST 14 L (15-37) U/L ALT 16 (12-78) U/L Alkaline Phosphatase 76 (46-116) IU/L Troponin I < 0.04 (0.00-0.070) ng/mL Total Protein 6.8 (6.4-8.2) g/dL Albumin 3.40 (3.00-4.80) g/dL Specimen Type Urincc Urine Color Light yellow (YELLOW) Urine Appearance Clear (CLEAR) Urine pH 6.0 (5.0-9.0) Ur Specific [place] 1.010 (1.005-1.030) Urine Protein Negative (NEGATIVE) mg/dL Urine Glucose (UA) Negative (NEGATIVE) mg/dL Urine Ketones Negative (NEGATIVE) mg/dL Urine Occult Blood Negative (NEGATIVE) Urine Nitrite Negative (NEGATIVE) Urine Bilirubin Negative (NEGATIVE) Urine Urobilinogen 0.2 (0.2-1.0) E.U./dL Ur Leukocyte Esterase Negative (NEGATIVE) Urine RBC 0-5 (0-5) /HPF Urine WBC 0-5 (0-5) /HPF Ur Epithelial Cells Few /LPF Urine Bacteria Occasional (NONE TO FEW) /HPF - Radiology Interpretation Free Text/Narrative:: Chest x-ray shows no acute cardiopulmonary process - Re-Assessments/Exams Free Text/Narrative Re-Assessment/Exam: 01/11/20 16:51 Patient afebrile, vital signs stable, blood pressure 140s over 80s, discussed case with Dr. Valero. Patient will split medication, taking losartan in the morning, and Bystolic in the evening. This is been discussed with Rebeka from the pharmacy and they will make the changes to the medication. Patient will follow-up with Dr. Valero later this week. Departure - Departure Time of Disposition: 16:52 Disposition: Home, Self-Care 01 Condition: Good Clinical Impression: Hypertension Qualifiers: Hypertension type: essential hypertension Qualified Code(s): I10 - Essential ( primary) hypertension - Discharge Information Instructions: How to Take Your Blood Pressure, [id number], Hypertension, Easy -to-Read, Managing Your Hypertension Referrals: Heydi Villalba MD [Primary Care Provider] - Forms: ED Department Discharge Additional Instructions: Follow-up with Dr. Valero on Saturday. Call for appointment time. Take losartan in the morning, and the bystolic in the evening. Return to emergency department if symptoms continue or worsen Sepsis Event Note - Evaluation Sepsis Screening Result: No Definite Risk - Focused Exam Vital Signs: Vital Signs Temp Pulse Resp BP Pulse Ox 01/11/20 16:26 65 22 H 144/99 H 96 01/11/20 15:55 153/84 H 01/11/20 15:46 97.6 F 97 24 H 175/89 H 97 Date Exam was Performed: 01/11/20 Time Exam was Performed: 16:51 - My Orders Last 24 Hours: My Active Orders 01/11/20 15:49 EKG 12 Lead [EK] Routine 01/11/20 15:50 EKG Documentation Completion [RC] ASDIRECTED - Assessment/Plan Last 24 Hours: My Active Orders 01/11/20 15:49 EKG 12 Lead [EK] Routine 01/11/20 15:50 EKG Documentation Completion [RC] ASDIRECTED Assessment:: Hypertension Plan: Follow-up with Dr. Valero on Saturday
[2020-01-11 16:27] VITALS: PULSE 65
[2020-01-11 16:27] LABS: ANION GAP 12.2 mmol/L (5-15); CHLORIDE,CL 104 mmol/L (98-115); SODIUM,NA 143 mmol/L (136-145)
--- NOTE | 2020-01-11 16:28 | CR ---
[id number] RAD/RAD Chest PA or AP 1V EXAM: RAD Chest PA or AP 1V INDICATION: HIGH BLOOD PRESSURE. COMPARISON: January 2019. DISCUSSION: Cardiomediastinal silhouette is unchanged the prior examination. No infiltrate, effusion, pneumothorax, or edema. IMPRESSION: No acute findings or significant change from the prior examination. Noble Schofield MD 01/11/20 1103 Thank you for allowing us to participate in the care of your patient.
[2020-01-11 17:15] VITALS: BP 151/62
== END 2020-01-11 17:10 | disposition home or self-care (01) ==
LOC: KA.ED 15:29
DX: I10 Essential (primary) hypertension (principal); E78.00 Pure hypercholesterolemia, unspecified; K21.9 Gastro-esophageal reflux disease without esophagitis; F41.9 Anxiety disorder, unspecified; F32.9 Major depressive disorder, single episode, unspecified; E03.9 Hypothyroidism, unspecified; Z91.09 Other allergy status, other than to drugs and biological substances; Z88.2 Allergy status to sulfonamides; Z91.048 Other nonmedicinal substance allergy status; Z88.8 Allergy status to other drugs, medicaments and biological substances; Z79.899 Other long term (current) drug therapy; Z86.73 Personal history of transient ischemic attack (TIA), and cerebral infarction without residual deficits
CPT/HCPCS: 71045; 80053; 81001; 84484; 85025; 93005; 99284; 99284-25

== ENCOUNTER 2021-03-25 17:56 | Emergency (ER) | payer MEDICARE, OTHER ==
[2021-03-25] MEDS ORDERED: Sodium Chloride 0.9% 10 ML Syringe FLUSH PRN (18:09)
[2021-03-25 18:15] VITALS: BP 171/84; PULSE 97
[2021-03-25 18:38] LABS: ANION GAP 14.9 mmol/L (5-15); CHLORIDE,CL 100 mmol/L (98-107); SODIUM,NA 140 mmol/L (136-145)
--- NOTE | 2021-03-25 18:38 | CR ---
[id number] RAD/RAD Chest PA And Lateral EXAM: RAD Chest PA And Lateral INDICATION: CONGESTION. COMPARISON: January 11, 2020. DISCUSSION: Cardiomediastinal silhouette is stable in size and contour. No infiltrate, effusion, pneumothorax, or edema. Pulmonary hyperinflation. IMPRESSION: No acute cardiopulmonary abnormality. Devang Schaeffer DO 03/25/21 0441 Thank you for allowing us to participate in the care of your patient.
--- NOTE | 2021-03-25 18:43 | EDM.PDOC ---
ED HPI GENERAL MEDICAL PROBLEM - General Chief Complaint: Respiratory Problem Stated Complaint: BAD COUGH, SHORT OF BREATH Time Seen by Provider: 03/25/21 18:08 Source of Information: Reports: Patient History Limitations: Reports: No Limitations - History of Present Illness INITIAL COMMENTS - FREE TEXT/NARRATIVE: Sharon, 80 year old female,Presents by private vehicle to the emergency department for evaluation. Presentation of 1800 hrs. on Saturday the 25 March. She states "last night was terrible for drainage and cough". She states that she has been experiencing congestion with occasional cough for the past 2 weeks denying any fever nor chills. She does not acknowledge but also does not deny shortness of breath. She is very nonspecific in detail but states 2-week history of a congestion like throat cough when asked to describe details. She denies any issues with bowel or bladder. Has had regular regimen denying any changes, travel, exposures or other contributing factors. She is fully vaccinated COVID-19 she states since December and has had no Signs and Symptoms of COVID-19 (e.g., fever, dry cough, and/or SOB), no diagnosis made. Onset: Gradual Duration: Week(s):, Recurring Location: Reports: Neck, Chest Quality: Reports: Same as Previous Episode Severity: Moderate Improves with: Reports: None Worsens with: Reports: None - Related Data Allergies Allergy/AdvReac Type Severity Reaction Status Date / Time feathers Allergy Other Verified 03/25/21 20:25 formaldehyde Allergy Other Verified 03/25/21 20:25 Sulfa (Sulfonamide Allergy Other Verified 03/25/21 20:25 Antibiotics) bleach Allergy Unknown Other Uncoded 03/25/21 20:25 green letuce Allergy Diarrhea Uncoded 03/25/21 20:25 Home Meds: Home Meds Levothyroxine Sodium [Synthroid] 25 mcg PO ACBREAKFAST 06/16/17 [History] traZODone HCl [Trazodone HCl] 100 mg PO BEDTIME PRN 11/10/17 [History] ALPRAZolam [Alprazolam] 0.25 mg PO BID PRN 01/19/18 [History] Escitalopram [Lexapro] 20 mg PO DAILY 01/19/18 [History] ARIPiprazole [Aripiprazole] 5 mg PO DAILY 06/15/18 [History] Acetaminophen 500 mg PO Q6H PRN 12/07/19 [History] Tolterodine Tartrate [Tolterodine Tartrate ER] 4 mg PO DAILY 12/07/19 [History] Estrogens, Conjugated [Premarin Vaginal Crm] 1 applic TOP ASDIRECTED 01/11/20 [History] Thiamine HCl [Vitamin B-1] 100 mg PO DAILY 01/11/20 [History] Doxycycline Hyclate 100 mg PO BID 10 Days #17 tablet 03/25/21 [Rx] Losartan Potassium [Cozaar] 100 mg PO DAILY 03/25/21 [History] Past Medical History HEENT History: Reports: Impaired Vision Cardiovascular History: Reports: High Cholesterol, Hypertension Respiratory History: Reports: None Gastrointestinal History: Reports: Chronic Diarrhea, GERD, Hemorrhoids Genitourinary History: Reports: Urinary Incontinence 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: Musculoskeletal History: Reports: Fracture Neurological History: Reports: TIA Other Neuro History: 2014 Psychiatric History: Reports: Anxiety, Depression, Panic Attack Endocrine/Metabolic History: Reports: Hypothyroidism Other Endocrine/Metabolic History: Pt can not recall if she has hyper or hypo thyroidism; but she takes synthroid Hematologic History: Reports: Blood Transfusion(s) Immunologic History: Reports: None Oncologic (Cancer) History: Reports: Basal Cell Carcinoma Dermatologic History: Reports: Other (See Below) Other Dermatologic History: Basal cell CA - Infectious Disease History Infectious Disease History: Reports: Chicken Pox, Measles, Mumps - Past Surgical History Head Surgeries/Procedures: Reports: None HEENT Surgical History: Reports: None Cardiovascular Surgical History: Reports: None Respiratory Surgical History: Reports: None GI Surgical History: Reports: Colonoscopy Female Surgical History: Reports: D&C, Hysterectomy, Other (See Below) Other Female Surgeries/Procedures: Bladder surgery, sling. Endocrine Surgical History: Reports: None Neurological Surgical History: Reports: None Musculoskeletal Surgical History: Reports: Shoulder Replacement Dermatological Surgical History: Reports: None Social & Family History - Family History Family Medical History: No Pertinent Family History - Caffeine Use Caffeine Use: Reports: Coffee - Living Situation & Occupation Living situation: Reports: ED ROS GENERAL - Review of Systems Review Of Systems: Comprehensive ROS is negative, except as noted in HPI. ED EXAM, GENERAL - Physical Exam Exam: See Below Free Text/Narrative:: Alert, oriented, she is off 2 days on the date but otherwise appears appropriate. There is no cyanosis nor pallor. There is mild cerumen in the canals with no obstruction. PERRLA no icterus no injection. [place] moist mucous membranes with exudative drainage in the oropharynx. There is mild pressure sensation to the frontal and maxillary sinuses. Neck is soft supple no lymphadenopathy no bruit appreciated. Thorax is overall clear with some resignation in the upper lobes what appears to be laryngeal. There are no wheezes nor crackles. Cardiac S1 is 2 with a grade 1 systolic murmur best heard at the base. No flank pain with soft supple abdomen. Trace edema to the lower extremities with warm dry skin. Negative Homans' sign bilateral. #1 Interpretation EKG Date: 03/25/21 Time: 18:28 Rhythm: NSR Rate (Beats/Min): 93 [place]: Normal P-Wave: Present QRS: Normal ST-T: Normal QT: Normal Course - Vital Signs Last Recorded V/S: Last Vital Signs Temp 99.0 F 03/25/21 18:14 Pulse 97 03/25/21 18:14 Resp 24 H 03/25/21 18:14 BP 171/84 H 03/25/21 18:14 Pulse Ox 96 03/25/21 18:14 - Orders/Labs/Meds Orders: Active Orders 24 hr Category Date Time Status EKG Documentation Completion [RC] ASDIRECTED Care 03/25/21 18:08 Active Peripheral IV Care [RC] . DIRECTED Care 03/25/21 18:09 Active Sodium Chloride 0.9% [Normal Saline] 100 ml Med 03/25/21 19:30 Active IV ASDIRECTED Sodium Chloride 0.9% [Saline Flush] Med 03/25/21 18:09 Active 10 ml FLUSH Q8HR PRN Peripheral IV Insertion Adult [OM.PC] Routine Oth 03/25/21 18:09 Ordered EKG 12 Lead [EK] Urgent Ther 03/25/21 18:08 Ordered Medication Orders Sodium Chloride (Normal Saline) 100 mls @ 200 mls/hr IV ASDIRECTED ALYX Last Admin: 03/25/21 19:37 Dose: 200 mls/hr Documented by: CORNELIO Sodium Chloride (Sodium Chloride 0.9% 10 Ml Syringe) 10 ml FLUSH Q8HR PRN PRN Reason: keep vein open Labs: Laboratory Tests 03/25/21 03/25/21 03/25/21 Range/Units 18:05 18:05 18:05 WBC 14.68 H (5.00-10.00) 10^3/uL RBC 4.03 (3.80-5.50) 10^6/uL Hgb 12.1 (12.0-16.0) g/dL Hct 38.1 (37.0-47.0) % MCV 94.5 H D (82.0-92.0) fL MCH 30.0 (27.0-31.0) pg MCHC 31.8 L (32.0-36.0) g/dL RDW 14.3 (11.5-14.5) % Plt Count 256 (150-400) 10^3/uL MPV 9.6 (7.4-10.4) fL Immature Gran % (Auto) 0.1 (0.0-5.0) % Neut % (Auto) 75.5 H (50.0-70.0) % Lymph % (Auto) 11.5 L (20.0-40.0) % [place] % (Auto) 9.8 H (2.0-8.0) % Eos % (Auto) 2.9 (1.0-3.0) % Baso % (Auto) 0.2 (0.0-1.0) % Neut # (Auto) 11.07 H (2.50-7.00) 10^3/uL Lymph # (Auto) 1.69 (1.00-4.00) 10^3/uL [place] # (Auto) 1.44 H (0.10-0.80) 10^3/uL Eos # (Auto) 0.43 H (0.10-0.30) 10^3/uL Baso # (Auto) 0.03 (0.00-0.10) 10^3/uL Immature Gran # (Auto) 0.02 (0.00-0.50) 10^3/uL D-Dimer, Quantitative 1280 H (<400) ng/mL Sodium 140 (136-145) mmol/L Potassium 3.8 (3.5-5.1) mmol/L Chloride 100 (98-107) mmol/L Carbon Dioxide 28.9 (21.0-32.0) mmol/L Anion Gap 14.9 (5-15) mmol/L BUN 8 (7-18) mg/dL Creatinine 1.01 (0.51-1.17) mg/dL Est Cr Clr Drug Dosing TNP Estimated GFR (MDRD) 53 mL/min Glucose 105 (70-140) mg/dL Calcium 8.7 (8.7-10.3) mg/dL Total Bilirubin 0.7 (0.2-1.0) mg/dL AST 9 L (15-37) U/L ALT 15 (14-63) U/L Alkaline Phosphatase 95 (46-116) U/L Troponin I High Sens < 4.000 (0-51.000) pg/mL B-Natriuretic Peptide 87 (0-100) pg/mL Total Protein 7.2 (6.4-8.2) g/dL Albumin 3.38 L (3.40-5.00) g/dL Specimen Type Urine Color (YELLOW) Urine Appearance (CLEAR) Urine pH (5.0-9.0) Ur Specific [place] (1.005-1.030) Urine Protein (NEGATIVE) mg/dL Urine Glucose (UA) (NEGATIVE) mg/dL Urine Ketones (NEGATIVE) mg/dL Urine Occult Blood (NEGATIVE) Urine Nitrite (NEGATIVE) Urine Bilirubin (NEGATIVE) Urine Urobilinogen (0.2-1.0) E.U./dL Ur Leukocyte Esterase (NEGATIVE) Urine RBC (0-5) /HPF Urine WBC (0-5) /HPF Ur Epithelial Cells /LPF Urine Bacteria (NONE TO FEW) /HPF 03/25/ Range/Units 20:03 WBC (5.00-10.00) 10^3/uL RBC (3.80-5.50) 10^6/uL Hgb (12.0-16.0) g/dL Hct (37.0-47.0) % MCV (82.0-92.0) fL MCH (27.0-31.0) pg MCHC (32.0-36.0) g/dL RDW (11.5-14.5) % Plt Count (150-400) 10^3/uL MPV (7.4-10.4) fL Immature Gran % (Auto) (0.0-5.0) % Neut % (Auto) (50.0-70.0) % Lymph % (Auto) (20.0-40.0) % [place] % (Auto) (2.0-8.0) % Eos % (Auto) (1.0-3.0) % Baso % (Auto) (0.0-1.0) % Neut # (Auto) (2.50-7.00) 10^3/uL Lymph # (Auto) (1.00-4.00) 10^3/uL [place] # (Auto) (0.10-0.80) 10^3/uL Eos # (Auto) (0.10-0.30) 10^3/uL Baso # (Auto) (0.00-0.10) 10^3/uL Immature Gran # (Auto) (0.00-0.50) 10^3/uL D-Dimer, Quantitative (<400) ng/mL Sodium (136-145) mmol/L Potassium (3.5-5.1) mmol/L Chloride (98-107) mmol/L Carbon Dioxide (21.0-32.0) mmol/L Anion Gap (5-15) mmol/L BUN (7-18) mg/dL Creatinine (0.51-1.17) mg/dL Est Cr Clr Drug Dosing Estimated GFR (MDRD) mL/min Glucose (70-140) mg/dL Calcium (8.7-10.3) mg/dL Total Bilirubin (0.2-1.0) mg/dL AST (15-37) U/L ALT (14-63) U/L Alkaline Phosphatase (46-116) U/L Troponin I High Sens (0-51.000) pg/mL B-Natriuretic Peptide (0-100) pg/mL Total Protein (6.4-8.2) g/dL Albumin (3.40-5.00) g/dL Specimen Type Urinblad Urine Color Yellow (YELLOW) Urine Appearance Clear (CLEAR) Urine pH 7.5 (5.0-9.0) Ur Specific [place] 1.010 (1.005-1.030) Urine Protein Negative (NEGATIVE) mg/dL Urine Glucose (UA) Negative (NEGATIVE) mg/dL Urine Ketones Negative (NEGATIVE) mg/dL Urine Occult Blood Trace-lysed H (NEGATIVE) Urine Nitrite Negative (NEGATIVE) Urine Bilirubin Negative (NEGATIVE) Urine Urobilinogen 0.2 (0.2-1.0) E.U./dL Ur Leukocyte Esterase Negative (NEGATIVE) Urine RBC 0-5 (0-5) /HPF Urine WBC Not seen (0-5) /HPF Ur Epithelial Cells Rare /LPF Urine Bacteria Not seen (NONE TO FEW) /HPF Meds: Medications Generic Name Dose Route Start Last Admin Trade Name Freq PRN Reason Stop Dose Admin Sodium Chloride 100 mls @ 200 mls/hr 03/25/21 19:30 03/25/21 19:37 Normal Saline IV 200 mls/hr ASDIRECTED ALYX Administration Sodium Chloride 10 ml 03/25/21 18:09 Sodium Chloride 0.9% 10 Ml Syringe FLUSH Q8HR PRN keep vein open Discontinued Medications Generic Name Dose Route Start Last Admin Trade Name Freq PRN Reason Stop Dose Admin Doxycycline Hyclate 300 mg 03/25/21 20:51 03/25/21 21:05 Doxycycline 50 Mg Cap PO 03/25/21 20:52 300 mg ONETIME ONE Administration Iopamidol 75 ml 03/25/21 19:21 03/25/21 19:37 Iopamidol 755 Mg/Ml 75 Ml Bottle IVPUSH 03/25/21 19:22 75 ml ONETIME ONE Administration - Radiology Interpretation Free Text/Narrative:: Chest x-ray is benign for any acute process. - Re-Assessments/Exams Free Text/Narrative Re-Assessment/Exam: 03/25/21 18:58 With laboratory analysis returning I went into question Sharon into other details. She does not recall a occasional chest pressure with cough induced thereafter and acknowledges a very sedentary lifestyle. Although there is no evidence of Homans' sign or risk findings of prolonged travel sedentary lifestyle does increase the risk for clotting and a PE study will be performed. 03/25/21 19:21 Detailed explanation of the timeframe for CTA with contrast to rule out pulmonary embolus in the time it takes for report to return. She asked me if I would step into the lobby and explained this to her friend Vira who transported her here. Offer her to return to the apartment and we can contact her later if Sharon is going to be discharged. nando Pavon presented to bedside to advise her on the upcoming study. She expressed to Savanah she did not know anything about any further testing and seems somewhat confused as to what was taking place. Savanah inform me of this that she knows that I always discuss issues with the patient in regards to future and pending test modes as well as results of prior testing that would lead us down that pathway. Departure - Departure Time of Disposition: 21:01 Disposition: Home, Self-Care 01 Condition: Fair Clinical Impression: Cough, Elevated d-dimer Hypertension Qualifiers: Hypertension type: essential hypertension Qualified Code(s): I10 - Essential (primary) hypertension Sinusitis Qualifiers: Sinusitis location: unspecified location - Discharge Information *PRESCRIPTION DRUG MONITORING PROGRAM REVIEWED*: Not Applicable *COPY OF PRESCRIPTION DRUG MONITORING REPORT IN PATIENT JOSSE: Not Applicable Prescriptions: Doxycycline Hyclate 100 mg PO BID 10 Days #17 tablet Instructions: Sinusitis, Adult, Cough, Adult Referrals: Heydi Villalba MD [Primary Care Provider] - Forms: ED Department Discharge Additional Instructions: You have been provided doxycycline 100 mg to be taken tonight and twice tomorrow. You will be a prescription for you at the pharmacy to picking supervisor Saturday morning to complete the 10-day treatment for sinusitis. Continue all of your other medications as directed. Drink more water to make sure you thin the sinus fluids to help alleviate the drainage and cough. You should be seen at the clinic for recheck sometime in the next 10 to 14 days as you are able to schedule. Call the clinic or return to the emergency department if your symptoms do not improve or worsen next week. Sepsis Event Note (ED) - Evaluation Sepsis Screening Result: No Definite Risk - Focused Exam Vital Signs: Vital Signs Temp Pulse Resp BP Pulse Ox 03/25/21 18:14 99.0 F 97 24 H 171/84 H 96 - Problem List & Annotations (1) Cough SNOMED Code(s): 73550195 Code(s): R05 - COUGH Status: Acute Priority: High Current Visit: Yes (2) Elevated d-dimer SNOMED Code(s): 437443844 Code(s): R79.89 - OTHER SPECIFIED ABNORMAL FINDINGS OF BLOOD CHEMISTRY Status: Acute Priority: High Current Visit: Yes (3) Sinusitis SNOMED Code(s): 56275915 Code(s): J32.9 - CHRONIC SINUSITIS, UNSPECIFIED Status: Acute Priority: Medium Current Visit: Yes Qualifiers: Sinusitis location: unspecified location (4) Anxiety SNOMED Code(s): 14231510 Code(s): F41.9 - ANXIETY DISORDER, UNSPECIFIED Status: Chronic Priority: Medium Current Visit: Yes - Problem List Review Problem List Initiated/Reviewed/Updated: Yes - My Orders Last 24 Hours: My Active Orders 03/25/21 18:08 EKG Documentation Completion [RC] ASDIRECTED EKG 12 Lead [EK] Urgent 03/25/21 18:09 Peripheral IV Care [RC] . DIRECTED Sodium Chloride 0.9% [Saline Flush] 10 ml FLUSH Q8HR PRN Peripheral IV Insertion Adult [OM.PC] Routine 03/25/21 19:30 Sodium Chloride 0.9% [Normal Saline] 100 ml IV ASDIRECTED - Assessment/Plan Last 24 Hours: My Active Orders 03/25/21 18:08 EKG Documentation Completion [RC] ASDIRECTED EKG 12 Lead [EK] Urgent 03/25/21 18:09 Peripheral IV Care [RC] . DIRECTED Sodium Chloride 0.9% [Saline Flush] 10 ml FLUSH Q8HR PRN Peripheral IV Insertion Adult [OM.PC] Routine 03/25/21 19:30 Sodium Chloride 0.9% [Normal Saline] 100 ml IV ASDIRECTED Plan: You have been provided doxycycline 100 mg to be taken tonight and twice tomorrow. You will be a prescription for you at the pharmacy to picking supervisor Saturday morning to complete the 10-day treatment for sinusitis. Continue all of your other medications as directed. Drink more water to make sure you thin the sinus fluids to help alleviate the drainage and cough. You should be seen at the clinic for recheck sometime in the next 10 to 14 days as you are able to schedule. Call the clinic or return to the emergency department if your symptoms do not improve or worsen next week.
[2021-03-25] MEDS: Sodium Chloride 0.9% 100 ML IV SCH (19:37)
[2021-03-25] MEDS: Iopamidol 755 Mg/ML 75 ML Bottle IVPUSH ONE (19:37)
--- NOTE | 2021-03-25 19:59 | CT ---
[id number] CT/CTA Chest EXAM: CT ANGIOGRAM CHEST INDICATION: ELEVATED D DIMER, CHRONIC COUGH, OCCASSIONAL CHEST PAIN COMPARISON: None. DISCUSSION: The pulmonary arteries are normal in appearance with no emboli identified. The lungs are clear with no nodule, infiltrate or mass identified.No pleural or pericardial effusion. The heart is borderline enlarged. Coronary artery disease. Atherosclerotic calcifications of the aorta and its branches. No mediastinal, hilar or axillary lymphadenopathy. Small hiatal hernia. The imaged upper abdomen and osseous structures are unremarkable. IMPRESSION: 1. No evidence of acute pulmonary embolism Devang Schaeffer DO 03/25/211956 Thank you for allowing us to participate in the care of your patient.
== END 2021-03-25 21:10 | disposition home or self-care (01) ==
LOC: KA.ED 17:56
DX: J32.9 Chronic sinusitis, unspecified (principal); I10 Essential (primary) hypertension; R05 Cough; R79.1 Abnormal coagulation profile; E03.9 Hypothyroidism, unspecified; Z91.048 Other nonmedicinal substance allergy status; Z88.8 Allergy status to other drugs, medicaments and biological substances; Z88.2 Allergy status to sulfonamides; Z79.899 Other long term (current) drug therapy; Z86.73 Personal history of transient ischemic attack (TIA), and cerebral infarction without residual deficits; R06.02 Shortness of breath
CPT/HCPCS: 36415; 71046; 71275; 80053; 81001; 83880; 84484; 85025; 85379; 93005; 99284; 99285-25; A9270-GY; Q9967

== ENCOUNTER 2021-05-16 19:32 | Emergency (ER) | payer MEDICARE, OTHER ==
[2021-05-16 20:01] VITALS: PULSE 80
--- NOTE | 2021-05-16 20:19 | EDM.PDOC ---
ED HPI GENERAL MEDICAL PROBLEM - General Chief Complaint: General Stated Complaint: HIGH BLOOD PRESSURE CONCERNS Time Seen by Provider: 05/16/21 19:45 Source of Information: Reports: Patient History Limitations: Reports: No Limitations - History of Present Illness INITIAL COMMENTS - FREE TEXT/NARRATIVE: 80 YO WF PRESENTS TO ER WITH CONCERNS OF AN ELEVATED BLOOD PRESSURE. PT REPORTS SHE WAS FEELING LIGHTHEADED EARLIER TODAY AND STATES THAT THIS IS A SYMPTOM OF HIGH BLOOD PRESSURE FOR HER PROMPTING ER EVALUATION. PT DENIES LIGHTHEADEDNESS OR DIZZINESS CURRENTLY. BP 160/80'S IN ER. PT DENIES CHEST PAIN, SHORTNESS OF BREATH, NO DIAPHORESIS, NO HEADACHE, NO NEUROLOGICAL DEFICITS. PT REPORTS SHE IS FEELING A LITTLE ANXIOUS LATELY DUE TO THE ANNIVERSARY OF HER GRANDSON'S AND FAMILY BEING AWAY ON VACATION CURRENTLY. PT DENIES ANY OTHER COMPLAINTS AND STATES SHE WOULD LIKE TO GO HOME TO RELAX. Onset: Today Location: Reports: Generalized Severity: Mild Improves with: Reports: None Worsens with: Reports: None Associated Symptoms: Reports: No Other Symptoms. Denies: Chest Pain, Cough, Fever/Chills, Nausea/Vomiting, Rash, Shortness of Breath, Syncope, Weakness - Related Data Allergies Allergy/AdvReac Type Severity Reaction Status Date / Time feathers Allergy Other Verified 05/16/21 19:50 formaldehyde Allergy Other Verified 05/16/21 19:50 Sulfa (Sulfonamide Allergy Other Verified 05/16/21 19:50 Antibiotics) bleach Allergy Unknown Other Uncoded 03/25/21 20:25 green letuce Allergy Diarrhea Uncoded 03/25/21 20:25 Home Meds: Home Meds Levothyroxine Sodium [Synthroid] 25 mcg PO ACBREAKFAST 06/16/17 [History] traZODone HCl [Trazodone HCl] 100 mg PO BEDTIME PRN 11/10/17 [History] ALPRAZolam [Alprazolam] 0.25 mg PO BID PRN 01/19/18 [History] Escitalopram [Lexapro] 20 mg PO DAILY 01/19/18 [History] ARIPiprazole [Aripiprazole] 5 mg PO DAILY 06/15/18 [History] Acetaminophen 500 mg PO Q6H PRN 12/07/19 [History] Tolterodine Tartrate [Tolterodine Tartrate ER] 4 mg PO DAILY 12/07/19 [History] Estrogens, Conjugated [Premarin Vaginal Crm] 1 applic TOP ASDIRECTED 01/11/20 [History] Thiamine HCl [Vitamin B-1] 100 mg PO DAILY 01/11/20 [History] Doxycycline Hyclate 100 mg PO BID 10 Days #17 tablet 03/25/21 [Rx] Losartan Potassium [Cozaar] 100 mg PO DAILY 03/25/21 [History] Past Medical History HEENT History: Reports: Impaired Vision Cardiovascular History: Reports: High Cholesterol, Hypertension Respiratory History: Reports: None Gastrointestinal History: Reports: Chronic Diarrhea, GERD, Hemorrhoids Genitourinary History: Reports: Urinary Incontinence [employer]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: Musculoskeletal History: Reports: Fracture Neurological History: Reports: TIA Other Neuro History: 2014 Psychiatric History: Reports: Anxiety, Depression, Panic Attack Endocrine/Metabolic History: Reports: Hypothyroidism Other Endocrine/Metabolic History: Pt can not recall if she has hyper or hypo thyroidism; but she takes synthroid Hematologic History: Reports: Blood Transfusion(s) Immunologic History: Reports: None Oncologic (Cancer) History: Reports: Basal Cell Carcinoma Dermatologic History: Reports: Other (See Below) Other Dermatologic History: Basal cell CA - Infectious Disease History Infectious Disease History: Reports: Chicken Pox, Measles, Mumps - Past Surgical History Head Surgeries/Procedures: Reports: None HEENT Surgical History: Reports: None Cardiovascular Surgical History: Reports: None Respiratory Surgical History: Reports: None GI Surgical History: Reports: Colonoscopy Female Surgical History: Reports: D&C, Hysterectomy, Other (See Below) Other Female Surgeries/Procedures: Bladder surgery, sling. Endocrine Surgical History: Reports: None Neurological Surgical History: Reports: None Musculoskeletal Surgical History: Reports: Shoulder Replacement Oncologic Surgical History: Reports: None Dermatological Surgical History: Reports: None Social & Family History - Family History Family Medical History: No Pertinent Family History - Caffeine Use Caffeine Use: Reports: Coffee - Living Situation & Occupation Living situation: Reports: ED ROS GENERAL - Review of Systems Review Of Systems: See Below Constitutional: Reports: No Symptoms HEENT: Reports: No Symptoms Respiratory: Reports: No Symptoms Cardiovascular: Reports: No Symptoms Endocrine: Reports: No Symptoms GI/Abdominal: Reports: No Symptoms : Reports: No Symptoms Musculoskeletal: Reports: No Symptoms Skin: Reports: No Symptoms Neurological: Reports: Dizziness Psychiatric: Reports: No Symptoms Hematologic/Lymphatic: Reports: No Symptoms Immunologic: Reports: No Symptoms ED EXAM, GENERAL - Physical Exam Exam: See Below Exam Limited By: No Limitations General Appearance: Alert, WD/WN, No Apparent Distress Throat/Mouth: Normal Inspection, Normal Lips, Normal Teeth, Normal Gums, Normal Oropharynx, Normal Voice, No Airway Compromise Head: Atraumatic, Normocephalic Neck: Normal Inspection, Supple, Non-Tender, Full Range of Motion Respiratory/Chest: No Respiratory Distress, Lungs Clear, Normal Breath Sounds, No Accessory Muscle Use, Chest Non-Tender Cardiovascular: Normal Peripheral Pulses, Regular Rate, Rhythm, No Edema, No Gallop, No JVD, No Murmur, No Rub GI/Abdominal: Normal Bowel Sounds, Soft, Non-Tender, No Organomegaly, No Distention, No Abnormal Bruit, No Mass Back Exam: Normal Inspection, Full Range of Motion, NT Extremities: Normal Inspection, Normal Range of Motion, Non-Tender, Normal Capillary Refill, No Pedal Edema Neurological: Alert, Oriented, CN II-XII Intact, Normal Cognition, Normal Gait, Normal Reflexes, No Motor/Sensory Deficits Psychiatric: Normal Affect, Normal Mood Skin Exam: Warm, Dry, Intact, Normal Color, No Rash Lymphatic: No Adenopathy #1 Interpretation EKG Date: 05/16/21 Time: 19:46 Rhythm: NSR Rate (Beats/Min): 83 Harmans: Normal P-Wave: Present QRS: Normal ST-T: Normal QT: Prolonged Comparison: No Change Course - Vital Signs Last Recorded V/S: Last Vital Signs Temp 97.1 F 05/16/21 19:41 Pulse 80 05/16/21 20:01 Resp 20 05/16/21 19:41 BP 162/82 H 05/16/21 20:01 Pulse Ox 95 05/16/21 19:41 - Orders/Labs/Meds Orders: Active Orders 24 hr Category Date Time Status EKG Documentation Completion [RC] ASDIRECTED Care 05/16/21 19:52 Active EKG 12 Lead [EK] Urgent Ther 05/16/21 19:52 Ordered Departure - Departure Time of Disposition: 20:25 Disposition: Home, Self-Care 01 Condition: Good Clinical Impression: Hypertension screening, Anxiety - Discharge Information Instructions: Managing Anxiety, Adult, Hypertension, Adult, [id number] Referrals: Heydi Villalba MD [Primary Care Provider] - Forms: ED Department Discharge Additional Instructions: 1. DISCHARGE HOME 2. CONTINUE CURRENT MEDICATIONS DIRECTED BY DR STRICKLAND 3. RETURN TO ER FOR WORSENING SYMPTOMS INCLUDING CHEST PAIN OR SEVERE HEADACHE Sepsis Event Note (ED) - Evaluation Sepsis Screening Result: No Definite Risk - Focused Exam Vital Signs: Vital Signs Temp Pulse Resp BP Pulse Ox 05/16/21 20:01 80 162/82 H 05/16/21 19:53 165/83 H 05/16/21 19:41 97.1 F 89 20 171/89 H 95 - My Orders Last 24 Hours: My Active Orders 05/16/21 19:52 EKG Documentation Completion [RC] ASDIRECTED EKG 12 Lead [EK] Urgent - Assessment/Plan Last 24 Hours: My Active Orders 05/16/21 19:52 EKG Documentation Completion [RC] ASDIRECTED EKG 12 Lead [EK] Urgent Assessment:: 1. HYPERTENSION-CONTROLLED 2. ANXIETY Plan: 1. DISCHARGE HOME 2. CONTINUE CURRENT MEDICATIONS DIRECTED BY DR STRICKLAND 3. RETURN TO ER FOR WORSENING SYMPTOMS INCLUDING CHEST PAIN OR SEVERE HEADACHE
[2021-05-16 21:03] VITALS: BP 145/82
== END 2021-05-16 20:30 | disposition home or self-care (01) ==
LOC: KA.ED 19:32
DX: I10 Essential (primary) hypertension (principal); F41.9 Anxiety disorder, unspecified; E03.9 Hypothyroidism, unspecified; Z91.048 Other nonmedicinal substance allergy status; Z88.8 Allergy status to other drugs, medicaments and biological substances; Z88.2 Allergy status to sulfonamides; Z91.018 Allergy to other foods; Z79.899 Other long term (current) drug therapy
CPT/HCPCS: 93005; 99283-25; 99284

== ENCOUNTER 2022-08-23 15:37 | Emergency (ER) | payer MEDICARE, OTHER ==
[2022-08-23] MEDS: Enoxaparin 100 MG/1 ML Syringe SUBCUT ONE (17:16)
[2022-08-23 17:22] VITALS: BP 170/85; PULSE 79
== END 2022-08-23 17:35 | disposition home or self-care (01) ==
LOC: KA.ED 15:37
DX: R22.42 Localized swelling, mass and lump, left lower limb (principal); I10 Essential (primary) hypertension; F41.9 Anxiety disorder, unspecified; F32.A Depression, unspecified; E03.9 Hypothyroidism, unspecified; Z79.899 Other long term (current) drug therapy; Z91.018 Allergy to other foods; Z91.048 Other nonmedicinal substance allergy status; Z88.2 Allergy status to sulfonamides
CPT/HCPCS: 36415; 85379; 96372; 99283; 99284; J1650

== ENCOUNTER 2025-01-05 12:45 | Observation (INO) | payer MEDICARE, OTHER ==
[2025-01-05] MEDS ORDERED: Sodium Chloride 0.9% 10 ML Syringe FLUSH PRN (12:57)
[2025-01-05 13:13] LABS: BASOPHILS ABSOLUTE AUTO 0.01 10^3/uL (0.00-0.10); BASOPHILS PERCENT AUTO 0.1 % (0.0-1.0); EOSINOPHILS ABSOLUTE AUTO 0.21 10^3/uL (0.10-0.30); EOSINOPHILS PERCENT AUTO 2.7 % (1.0-3.0); HEMATOCRIT 35.4 % (37.0-47.0); HEMOGLOBIN 11.1 g/dL (12.0-16.0); IMMATURE GRAN ABSOLUTE AUTO 0.03 10^3/uL (0.00-0.04); IMMATURE GRAN PERCENT AUTO 0.4 % (0.0-0.4); LYMPHOCYTES ABSOLUTE AUTO 1.24 10^3/uL (1.00-4.00); MEAN CORPUSCULAR HGB CONC 31.4 g/dL (32.0-36.0); MEAN CORPUSCULAR VOLUME 92.4 fL (82.0-92.0); MEAN PLATELET VOLUME 9.8 fL (7.4-10.4); MONOCYTES ABSOLUTE AUTO 0.45 10^3/uL (0.10-0.80); MONOCYTES PERCENT AUTO 5.8 % (2.0-8.0); PLATELET COUNT,PLT 214 10^3/uL (150-400); RED BLOOD CELL COUNT 3.83 10^6/uL (3.80-5.50); RED CELL DISTRIBUTION WIDTH 14.3 % (11.5-14.5); WHITE BLOOD CELL COUNT,WBC 7.74 10^3/uL (5.00-10.00)
[2025-01-05 13:26] LABS: APPEARANCE,URINE CLOUDY (CLEAR); BILIRUBIN,URINE NEGATIVE (NEGATIVE); COLOR,URINE DARK YELLOW (YELLOW); GLUCOSE,URINE NEGATIVE (NEGATIVE); KETONES,URINE NEGATIVE (NEGATIVE); LEUKOCYTE ESTERASE,URINE LARGE (NEGATIVE); NITRITE,URINE POSITIVE (NEGATIVE); OCCULT BLOOD,URINE TRACE-INTACT (NEGATIVE); PH,URINE 5.5 (5.0-9.0); PROTEIN,URINE TRACE mg/dL (NEGATIVE); UROBILINOGEN,URINE 0.2 E.U./dL (0.2-1.0)
[2025-01-05 13:29] LABS: B-TYPE NATRIURETIC PEPTIDE,BNP 103 pg/mL (0-100)
[2025-01-05 13:32] LABS: ALANINE AMINOTRANSFERASE,ALT 13 U/L (14-63); ALBUMIN 2.67 g/dL (3.40-5.00); ALKALINE PHOSPHATASE 56 U/L (46-116); ANION GAP 9.7 mmol/L (5-15); ASPARTATE AMNIOTRANSFERASE,AST 13 U/L (15-37); BILIRUBIN TOTAL 0.4 mg/dL (0.2-1.0); BLOOD UREA NITROGEN,BUN 17 mg/dL (7-18); CARBON DIOXIDE,CO2 28.6 mmol/L (21.0-32.0); CHLORIDE,CL 105 mmol/L (98-107); CREATININE 1.37 mg/dL (0.51-1.17); EST CRCL DRUG DOSING (CG) 27.51 mL/min; GLUCOSE RANDOM 208 mg/dL (70-140); POTASSIUM,K 4.3 mmol/L (3.5-5.1); PROTEIN TOTAL,TP 5.3 g/dL (6.4-8.2); SODIUM,NA 139 mmol/L (136-145)
[2025-01-05 13:33] LABS: ESTIMATED GFR 38 mL/min (>=60); ETHANOL BLOOD MEDICAL < 3 mg/dL (<3)
[2025-01-05 13:34] LABS: AMPHETAMINES SCREEN, URINE NEGATIVE (NEGATIVE); BARBITURATE SCREEN,URINE NEGATIVE (NEGATIVE); BENZODIAZEPINES SCREEN,URINE POSITIVE (NEGATIVE); COCAINE METABOLITES,URINE NEGATIVE (NEGATIVE); METHADONE SCREEN, URINE NEGATIVE (NEGATIVE); METHAMPHETAMINES SCREEN, URINE NEGATIVE (NEGATIVE); OXYCODONE SCREEN,URINE NEGATIVE (NEGATIVE); PCP SCREEN,URINE NEGATIVE (NEGATIVE); TCA SCREEN,URINE NEGATIVE (NEGATIVE); THC SCREEN,URINE 50 NG/ML NEGATIVE (NEGATIVE)
[2025-01-05 13:35] LABS: BACTERIA,URINE MODERATE /HPF (NONE TO FEW); HYALINE CASTS,URINE MODERATE; WBC,URINE >100 /HPF (0-5)
[2025-01-05] MEDS: Sodium Chloride 0.9% 1,000 ML IV SCH ×2 (13:49→17:30)
[2025-01-05] MEDS: Ciprofloxacin in D5W 200 MG in Premix Bag 1 BAG IV SCH (13:58)
[2025-01-05] MEDS ORDERED: Polyethylene Glycol 3350 Powder 17 GM Packet PO PRN (16:24)
[2025-01-05] MEDS ORDERED: Albuterol/Ipratropium 3.0-0.5 MG/3 ML Neb Soln NEB PRN (16:24)
[2025-01-05] MEDS ORDERED: Ondansetron 4 MG Tab.DIS PO PRN (16:24)
[2025-01-05] MEDS ORDERED: Bisacodyl 5 MG Tab PO PRN (16:24)
[2025-01-05] MEDS ORDERED: Acetaminophen 325 MG Tab PO PRN (16:24)
[2025-01-05] MEDS ORDERED: Sodium Chloride 0.9% 1,000 ML IV SCH (16:45)
[2025-01-05] MEDS: Heparin Sodium 5,000 Units/ML Vial SUBCUT SCH (17:16)
[2025-01-05 17:30] LABS: O2 DELIVERY DEVICE NASAL CANNULA
[2025-01-05 17:47] LABS: PH,VENOUS 7.27 pH (7.32-7.43)
[2025-01-05 17:48] LABS: O2 SATURATION VENOUS 47 %; PCO2 VENOUS 59 mmHG (41-51); PO2 VENOUS 30 mmHG
[2025-01-05 17:49] LABS: BASE EXCESS VENOUS -1 mmol/L ((-2)-3); BICARBONATE,VENOUS 27 mmol/L (22-29)
[2025-01-05] MEDS: Trospium 20 MG Tab PO SCH (20:39)
[2025-01-05] MEDS: busPIRone 10 MG Tab PO SCH (20:39)
[2025-01-05] MEDS: ALPRAZolam 0.25 MG Tab PO PRN (22:10)
[2025-01-06] MEDS: Levothyroxine 25 MCG Tab PO SCH (06:32)
[2025-01-06 07:33] LABS: BASOPHILS ABSOLUTE AUTO 0.01 10^3/uL (0.00-0.10); BASOPHILS PERCENT AUTO 0.2 % (0.0-1.0); EOSINOPHILS ABSOLUTE AUTO 0.31 10^3/uL (0.10-0.30); EOSINOPHILS PERCENT AUTO 4.9 % (1.0-3.0); HEMATOCRIT 31.5 % (37.0-47.0); HEMOGLOBIN 9.6 g/dL (12.0-16.0); IMMATURE GRAN ABSOLUTE AUTO 0.01 10^3/uL (0.00-0.04); IMMATURE GRAN PERCENT AUTO 0.2 % (0.0-0.4); LYMPHOCYTES ABSOLUTE AUTO 2.09 10^3/uL (1.00-4.00); LYMPHOCYTES PERCENT AUTO 32.9 % (20.0-40.0); MEAN CORPUSCULAR HEMOGLOBIN 28.6 pg (27.0-31.0); MEAN CORPUSCULAR HGB CONC 30.5 g/dL (32.0-36.0); MEAN CORPUSCULAR VOLUME 93.8 fL (82.0-92.0); MEAN PLATELET VOLUME 9.5 fL (7.4-10.4); MONOCYTES ABSOLUTE AUTO 0.56 10^3/uL (0.10-0.80); MONOCYTES PERCENT AUTO 8.8 % (2.0-8.0); NEUTROPHILS ABSOLUTE AUTO 3.38 10^3/uL (2.50-7.00); PLATELET COUNT,PLT 191 10^3/uL (150-400); RED BLOOD CELL COUNT 3.36 10^6/uL (3.80-5.50); RED CELL DISTRIBUTION WIDTH 14.3 % (11.5-14.5); WHITE BLOOD CELL COUNT,WBC 6.36 10^3/uL (5.00-10.00)
[2025-01-06 07:49] LABS: ANION GAP 11.3 mmol/L (5-15); CALCIUM 7.3 mg/dL (8.7-10.3); CREATININE 0.98 mg/dL (0.51-1.17); EST CRCL DRUG DOSING (CG) 38.39 mL/min; POTASSIUM,K 4.3 mmol/L (3.5-5.1)
[2025-01-06] MEDS: ARIPiprazole 5 MG Tab PO SCH (08:23)
[2025-01-06] MEDS: Cyanocobalamin (Vitamin B12) 500 MCG Tab PO SCH (08:23)
[2025-01-06] MEDS: Escitalopram 10 MG Tab PO SCH (08:23)
[2025-01-06] MEDS: Thiamine 100 MG Tab PO SCH (08:23)
[2025-01-06] MEDS: Enoxaparin 40 MG/0.4 ML Syringe SUBCUT SCH (10:07)
[2025-01-06 11:35] LABS: BASE EXCESS ARTERIAL,POC -4 mmol/L ((-2)-3); HCO3 ARTERIAL,POC 22.4 mmol/L (21-28); O2 SATURATION ARTERIAL,POC 99.8 % (94-98); PCO2 ARTERIAL,POC 43 mmHg (35-48); PH ARTERIAL,POC 7.33 pH (7.35-7.45); PO2 ARTERIAL,POC 228 mmHg (83-108); TCO2 ARTERIAL,POC 22 mmol/L (22-29)
[2025-01-06 11:35] LABS: HCO3 VENOUS,POC 27 mmol/L (22-29); O2 SATURATION VENOUS,POC 47 %; PCO2 VENOUS,POC 59 mmHg (41-51); PH VENOUS,POC 7.27 pH (7.32-7.43); PO2 VENOUS,POC 30 mmHg
[2025-01-06] MEDS: Ciprofloxacin 500 MG Tab PO SCH (22:43)
[2025-01-07 06:37] VITALS: PULSE 82
[2025-01-07 07:25] LABS: EOSINOPHILS ABSOLUTE AUTO 0.37 10^3/uL (0.10-0.30); EOSINOPHILS PERCENT AUTO 6.8 % (1.0-3.0); HEMOGLOBIN 9.8 g/dL (12.0-16.0); IMMATURE GRAN ABSOLUTE AUTO 0.01 10^3/uL (0.00-0.04); IMMATURE GRAN PERCENT AUTO 0.2 % (0.0-0.4); LYMPHOCYTES ABSOLUTE AUTO 1.51 10^3/uL (1.00-4.00); LYMPHOCYTES PERCENT AUTO 27.8 % (20.0-40.0); MEAN CORPUSCULAR HGB CONC 31.6 g/dL (32.0-36.0); MEAN CORPUSCULAR VOLUME 91.7 fL (82.0-92.0); MEAN PLATELET VOLUME 9.5 fL (7.4-10.4); MONOCYTES ABSOLUTE AUTO 0.55 10^3/uL (0.10-0.80); MONOCYTES PERCENT AUTO 10.1 % (2.0-8.0); NEUTROPHILS ABSOLUTE AUTO 2.99 10^3/uL (2.50-7.00); NEUTROPHILS PERCENT AUTO 55.1 % (50.0-70.0); PLATELET COUNT,PLT 205 10^3/uL (150-400); RED BLOOD CELL COUNT 3.38 10^6/uL (3.80-5.50); RED CELL DISTRIBUTION WIDTH 14.2 % (11.5-14.5); WHITE BLOOD CELL COUNT,WBC 5.43 10^3/uL (5.00-10.00)
[2025-01-07 07:40] LABS: ANION GAP 10.9 mmol/L (5-15); CALCIUM 7.8 mg/dL (8.7-10.3); CARBON DIOXIDE,CO2 28.7 mmol/L (21.0-32.0); CREATININE 0.91 mg/dL (0.51-1.17); EST CRCL DRUG DOSING (CG) 41.34 mL/min; POTASSIUM,K 4.6 mmol/L (3.5-5.1)
[2025-01-07 14:23] VITALS: BP 152/76
== END 2025-01-07 13:44 | disposition home health service (06) ==
LOC: KA.ED 12:45 → UNDOADMOB 15:00 → KA.MS 15:00 → INTOOBSV 15:00 → KA.MS 16:48
PROVIDERS: ADMIT Nurse Practitioner; ATTEND Internal Medicine
DX: G93.40 Encephalopathy, unspecified (principal); N30.00 Acute cystitis without hematuria; J96.01 Acute respiratory failure with hypoxia; N17.9 Acute kidney failure, unspecified; I10 Essential (primary) hypertension; K21.9 Gastro-esophageal reflux disease without esophagitis; E78.00 Pure hypercholesterolemia, unspecified; E03.9 Hypothyroidism, unspecified; Z87.891 Personal history of nicotine dependence; Z79.890 Hormone replacement therapy; Z79.899 Other long term (current) drug therapy
CPT/HCPCS: 36415; 36600; 70450; 71045; 80048; 80053; 80305; 80307; 81001; 82803; 83605; 83880; 84145; 84484; 85025; 85379; 87086; 87088; 87186; 87428; 93010; 99223; 99233; 99239; 99284; A9270; J0744; J1644; J1650; J7030; Q3014

== ENCOUNTER 2025-05-21 18:31 | Emergency (ER) | payer MEDICARE, OTHER ==
[2025-05-21 19:25] LABS: BASOPHILS ABSOLUTE AUTO 0.04 10^3/uL (0.00-0.10); BASOPHILS PERCENT AUTO 0.5 % (0.0-1.0); EOSINOPHILS ABSOLUTE AUTO 0.12 10^3/uL (0.10-0.30); EOSINOPHILS PERCENT AUTO 1.5 % (1.0-3.0); IMMATURE GRAN ABSOLUTE AUTO 0.03 10^3/uL (0.00-0.04); IMMATURE GRAN PERCENT AUTO 0.4 % (0.0-0.4); LYMPHOCYTES ABSOLUTE AUTO 0.87 10^3/uL (1.00-4.00); LYMPHOCYTES PERCENT AUTO 11.2 % (20.0-40.0); MEAN PLATELET VOLUME 9.5 fL (7.4-10.4); MONOCYTES ABSOLUTE AUTO 1.11 10^3/uL (0.10-0.80); MONOCYTES PERCENT AUTO 14.3 % (2.0-8.0); NEUTROPHILS ABSOLUTE AUTO 5.59 10^3/uL (2.50-7.00); NEUTROPHILS PERCENT AUTO 72.1 % (50.0-70.0); PLATELET COUNT,PLT 199 10^3/uL (150-400); RED BLOOD CELL COUNT 4.17 10^6/uL (3.80-5.50); RED CELL DISTRIBUTION WIDTH 14.7 % (11.5-14.5); WHITE BLOOD CELL COUNT,WBC 7.76 10^3/uL (5.00-10.00)
[2025-05-21 19:37] LABS: APPEARANCE,URINE TURBID (CLEAR); GLUCOSE,URINE 100 mg/dL (NEGATIVE); OCCULT BLOOD,URINE LARGE (NEGATIVE)
[2025-05-21 19:44] LABS: EPITHELIAL CELLS,URINE FEW /LPF
[2025-05-21 19:47] LABS: ALANINE AMINOTRANSFERASE,ALT 44 U/L (14-63); ASPARTATE AMNIOTRANSFERASE,AST 27 U/L (15-37); BILIRUBIN TOTAL 0.6 mg/dL (0.2-1.0); BLOOD UREA NITROGEN,BUN 14 mg/dL (7-18); CARBON DIOXIDE,CO2 25.7 mmol/L (21.0-32.0); CHLORIDE,CL 101 mmol/L (98-107); CREATININE 1.42 mg/dL (0.51-1.17); EST CRCL DRUG DOSING (CG) 27.61 mL/min; GLUCOSE RANDOM 131 mg/dL (70-140); POTASSIUM,K 4.7 mmol/L (3.5-5.1); PROTEIN TOTAL,TP 7.0 g/dL (6.4-8.2); SODIUM,NA 137 mmol/L (136-145)
[2025-05-21 19:48] LABS: ESTIMATED GFR 36 mL/min (>=60)
[2025-05-21 19:49] LABS: ETHANOL BLOOD MEDICAL < 3 mg/dL (<3)
[2025-05-21] MEDS: Amoxicillin/Clavulanate K 875-125 MG Tab PO ONE (20:09)
[2025-05-22 04:35] VITALS: BP 112/71; PULSE 82
== END 2025-05-21 20:11 | disposition home or self-care (01) ==
LOC: KA.ED 18:31
DX: N30.00 Acute cystitis without hematuria (principal); E78.00 Pure hypercholesterolemia, unspecified; I10 Essential (primary) hypertension; Z95.0 Presence of cardiac pacemaker; Z88.6 Allergy status to analgesic agent; Z91.048 Other nonmedicinal substance allergy status; Z88.8 Allergy status to other drugs, medicaments and biological substances; Z91.041 Radiographic dye allergy status; Z91.011 Allergy to milk products; Z88.2 Allergy status to sulfonamides; Z79.890 Hormone replacement therapy; Z79.899 Other long term (current) drug therapy
CPT/HCPCS: 36415; 80053; 80307; 81001; 83690; 85025; 87086; 87088; 99284; A9270-GY

== ENCOUNTER 2025-05-23 11:50 | Emergency (ER) | payer MEDICARE, OTHER ==
[2025-05-23 12:26] LABS: BASOPHILS ABSOLUTE AUTO 0.01 10^3/uL (0.00-0.10); BASOPHILS PERCENT AUTO 0.2 % (0.0-1.0); EOSINOPHILS ABSOLUTE AUTO 0.35 10^3/uL (0.10-0.30); EOSINOPHILS PERCENT AUTO 7.4 % (1.0-3.0); IMMATURE GRAN ABSOLUTE AUTO 0.02 10^3/uL (0.00-0.04); IMMATURE GRAN PERCENT AUTO 0.4 % (0.0-0.4); LYMPHOCYTES ABSOLUTE AUTO 0.95 10^3/uL (1.00-4.00); LYMPHOCYTES PERCENT AUTO 20.0 % (20.0-40.0); MEAN PLATELET VOLUME 9.4 fL (7.4-10.4); MONOCYTES ABSOLUTE AUTO 0.77 10^3/uL (0.10-0.80); MONOCYTES PERCENT AUTO 16.2 % (2.0-8.0); NEUTROPHILS ABSOLUTE AUTO 2.65 10^3/uL (2.50-7.00); NEUTROPHILS PERCENT AUTO 55.8 % (50.0-70.0); PLATELET COUNT,PLT 181 10^3/uL (150-400); RED BLOOD CELL COUNT 3.81 10^6/uL (3.80-5.50); RED CELL DISTRIBUTION WIDTH 14.6 % (11.5-14.5); WHITE BLOOD CELL COUNT,WBC 4.75 10^3/uL (5.00-10.00)
[2025-05-23 12:35] LABS: APPEARANCE,URINE CLEAR (CLEAR); GLUCOSE,URINE NEGATIVE (NEGATIVE); OCCULT BLOOD,URINE NEGATIVE (NEGATIVE)
[2025-05-23 12:46] LABS: EPITHELIAL CELLS,URINE FEW /LPF
[2025-05-23 12:46] LABS: ALANINE AMINOTRANSFERASE,ALT 28.0 U/L (14-63); ASPARTATE AMNIOTRANSFERASE,AST 17.0 U/L (15-37); BILIRUBIN TOTAL 0.4 mg/dL (0.2-1.0); BLOOD UREA NITROGEN,BUN 12.0 mg/dL (7-18); CARBON DIOXIDE,CO2 25.2 mmol/L (21.0-32.0); CHLORIDE,CL 103.0 mmol/L (98-107); CREATININE 1.13 mg/dL (0.51-1.17); EST CRCL DRUG DOSING (CG) 34.69 mL/min; GLUCOSE RANDOM 105.0 mg/dL (70-140); POTASSIUM,K 4.5 mmol/L (3.5-5.1); PROTEIN TOTAL,TP 6.3 g/dL (6.4-8.2); SODIUM,NA 137.0 mmol/L (136-145)
[2025-05-23 12:47] LABS: ESTIMATED GFR 48.0 mL/min (>=60)
[2025-05-23 12:53] VITALS: BP 103/67; PULSE 70
== END 2025-05-23 13:00 | disposition home or self-care (01) ==
LOC: KA.ED 11:50
DX: I95.1 Orthostatic hypotension (principal); N30.00 Acute cystitis without hematuria; E86.0 Dehydration; I10 Essential (primary) hypertension; E03.9 Hypothyroidism, unspecified; K21.9 Gastro-esophageal reflux disease without esophagitis; Z90.710 Acquired absence of both cervix and uterus; Z79.899 Other long term (current) drug therapy; Z79.890 Hormone replacement therapy; Z91.011 Allergy to milk products; Z91.048 Other nonmedicinal substance allergy status; Z91.018 Allergy to other foods; Z88.2 Allergy status to sulfonamides; Z88.8 Allergy status to other drugs, medicaments and biological substances; Z88.5 Allergy status to narcotic agent
CPT/HCPCS: 36415; 80053; 81001; 83605; 85025; 99284